=== PATIENT | male | born 1950 | race Two or more races ===

== ENCOUNTER 2024-04-06 17:54 | Inpatient (IN) | payer MEDICARE, MEDICAID, SELFPAY ==
[2024-04-06 18:11] VITALS: BP 97/60; PULSE 74; RESP 20; TEMP 36.7; O2SAT 95; BMI 30.6
--- NOTE | 2024-04-06 18:14 | XR_ITS ---
Examination: PA chest single view TECHNIQUE: Upright PA chest single view Standing time: April 06, 2024 1902 hours Comparison February 16, 2019 INDICATIONS: Chronic shortness of breath worsening today. FINDINGS: Mild enlargement cardiac contour Moderate vascular congestion Cardiac leads satisfactory position Bibasilar opacity consistent with pneumonia with blunting of the costophrenic angles The osseous structures are intact IMPRESSION: Mild heart failure Bibasilar pneumonia Bilateral [id number] pleural effusions
--- NOTE | 2024-04-06 18:16 | EDRME_ITS ---
Rapid Medical Screening Exam [facility] Arrival date/time: 04/06/24 17:54 74M with history of PA/CAD, CHF (w/ pacemaker), and DM presents to ED with 1 month of generalized swelling and some SOB. Patient hasn't wanted to go to PCP and convinced him to come today. Patient has been taking his normal meds. Chief Complaint: Ankle/Foot Injury Vital signs: Vital Signs Temperature 98.1 F 04/06/24 18:11 Pulse Rate 74 04/06/24 18:11 Respiratory Rate 20 04/06/24 18:11 Blood Pressure 97/60 04/06/24 18:11 Pulse Oximetry (%) 95 04/06/24 18:11 Oxygen Delivery Method Room Air 04/06/24 18:11
[2024-04-06 18:38] LABS: Basophils # (Auto) 0.1 Thou/mm3 (0.0-0.2); Basophils % (Auto) 1 % (0-2.5); Eosinophils # (Auto) 0.3 Thou/mm3 (0.0-0.5); Eosinophils % (Auto) 3 % (0-10); Hematocrit 40.5 % (41.0-53.0); Hemoglobin 13.3 g/dL (13.5-16.0); Immature Granulocytes % (Auto) 0 % (0-0); Immature Granulocytes Auto 0.02 Thou/mm3 (0.00-0.00); Lymphocytes # (Auto) 1.8 Thou/mm3 (1.0-4.8); Lymphocytes % (Auto) 20 % (10-50); Mean Corpuscular HGB Conc 32.8 g/dl (31.0-37.0); Mean Corpuscular Hemoglobin 29.3 pg (25.0-35.0); Mean Corpuscular Volume 89 fL (80-100); Monocytes # (Auto) 1.1 Thou/mm3 (0.0-0.8); Monocytes % (Auto) 12 % (0-12); Neutrophils # (Auto) 6.1 Thou/mm3 (1.8-7.7); Neutrophils % (Auto) 65 % (37-80); Nucleated Red Blood Cell % 0 /100 WBC (0); Platelet Count 286 Thou/mm3 (140-440); RDW Standard Deviation 51.1 fL (35.1-43.9); Red Blood Count 4.54 Miln/mm3 (4.50-5.90); White Blood Count 9.3 Thou/mm3 (3.8-10.6)
[2024-04-06 18:48] LABS: INR 1.1 (0.9-1.3); Prothrombin Time 11.5 Seconds (9.0-12.2)
[2024-04-06 19:07] LABS: Collection Type, Urine Clean Catch
[2024-04-06 19:08] LABS: Alanine Aminotransferase 48 U/L (10-49); Albumin, Serum 2.8 gm/dL (3.4-4.8); Albumin/Globulin Ratio 1.2 (1.2-2.2); Alkaline Phosphatase 75 U/L (46-116); Anion Gap 4 (7-16); Aspartate Amino Transferase 63 U/L (0-34); BUN/Creatinine Ratio 18 Ratio (12-20); Bilirubin,Total 0.5 mg/dL (0.3-1.2); Blood Urea Nitrogen 24 mg/dL (9-23); Calcium 8.1 mg/dL (8.3-10.6); Calcium (Corrected) 9.1 mg/dL (8.5-10.1); Carbon Dioxide 36.2 mMol/L (20.0-31.0); Chloride 97 mMol/L (98-107); Creatinine (Component) 1.3 mg/dL (0.6-1.3); Estimated Creatinine Clearance 49.7 mL/min (>60); Globulin 2.4 gm/dL (2.3-3.5); Glucose 138 mg/dL (74-106); Osmolality,Calculated 279 (275-295); Potassium 4.1 mMol/L (3.4-5.1); Sodium 137 mMol/L (136-145); Total Protein 5.2 gm/dL (5.7-8.2); eGFR 57 See Note
[2024-04-06 19:28] LABS: B-Type Natriuretic Peptide 1702 pg/mL (0-100)
[2024-04-06 19:29] LABS: Bacteria,Urine 4+; Bilirubin,Urine Negative (Negative); Blood,Urine Negative (Negative); Clarity,Urine Clear (Clear/Hazy); Color,Urine Lt-Yellow (Lt Yel-Yel); Glucose, Urine 4+ (Negative); Ketones,Urine Negative (Negative); Leukocyte Esterase,Urine Negative (Negative); Nitrite,Urine Negative (Negative); Protein,Urine Negative (Neg - Trace); RBC,Urine 5 /hpf (0-3); Specific Gravity,Urine 1.015 (1.001-1.035); Squamous Epithelial Cell,Urine < 1 /hpf (0-5); Urobilinogen,Urine Negative mg/dL (0.0-1.0); WBC,Urine 2 /hpf (0-5)
--- NOTE | 2024-04-06 21:01 | PD.EDEXREM ---
ED Extremity Problem RME/HPI General Chief complaint: Ankle/Foot Injury Stated complaint: FEET, STOMACH, HANDS SWOLLEN X 03/17/24 Source: patient and family Arrival date/time: 04/06/24 17:54 Mode of arrival: ambulatory Limitations: no limitations RME / HPI RME / HPI Narrative: 04/06/24 17:54 74M with history of OK/CAD, CHF (w/ pacemaker), and DM presents to ED with 1 month of generalized swelling and some SOB. Patient hasn't wanted to go to PCP and convinced him to come today. Patient has been taking his normal meds. Dr. Woodruff?s Main ED Evaluation: The patient is a 74-year-old male with a medical history significant for type 2 diabetes mellitus, hypertension, hyperlipidemia, severe left ventricular systolic dysfunction with an ejection fraction of 35%, acute non-ST segment elevation myocardial infarction (NSTEMI) in 2019, multivessel coronary artery disease (CAD) with diffuse stenosis, pacemaker. He is accompanied by his son and and presents to the emergency department due to concerns of edema to bilateral upper and lower extremities and abdomen, which has been ongoing since 03-17-24. Patient decided to come in today due to worsening shortness of breath. The patient reports that he has been taking Lasix (40 mg once daily) without noticeable improvement. He describes experiencing orthopnea, stating that he feels like he is drowning when lying flat. He also reports significant fatigue and exertional dyspnea, becoming short of breath during ambulation. Related Data Home Medications ?Medication ?Instructions ?Recorded ?Confirmed aspirin 81 mg tablet,delayed 81 mg PO QDAY 04/06/24 04/06/24 release atorvastatin 40 mg tablet 40 mg PO QDAY 04/06/24 04/06/24 carvedilol 3.125 mg tablet 3.125 mg PO BID 04/06/24 04/06/24 clopidogrel 75 mg tablet 75 mg PO QDAY 04/06/24 04/06/24 empagliflozin 10 mg tablet 10 mg PO QAM 04/06/24 04/06/24 (Jardiance) metformin 850 mg tablet 850 mg PO BIDWMEAL 04/06/24 04/06/24 spironolactone 25 mg tablet 25 mg PO QDAY 04/06/24 04/06/24 Previous Rx's ?Medication ?Instructions ?Recorded blood pressure monitor (Blood #1 ea 04/13/24 Pressure Kit) bumetanide 2 mg tablet 2 mg PO QDAY #30 tabs 04/13/24 ipratropium 0.5 mg-albuterol 3 mg 3 ml INH Q2HR PRN Shortness Of 04/13/24 (2.5 mg base)/3 mL nebulization Breath Or Wheeze #90 mL soln midodrine 10 mg tablet 10 mg PO BID 30 days #60 tabs 04/13/24 sacubitril 24 mg-valsartan 26 mg 1 tab PO BID 30 days #60 tabs 04/13/24 tablet (Entresto) Allergies Allergy/AdvReac Type Severity Reaction Status Date / Time No Known Allergies Allergy Verified 04/10/24 13:33 Review of Systems Review of Systems Systems Reviewed: All systems reviewed, normal except as documented Past Medical History Past Medical History NEUROLOGIC: Negative Neurological Disorders CARDIAC: Positive Hypercholesterolemia and Hypertension; Negative Cardiac Disorders or Congestive Heart Failure RESPIRATORY: Negative Chronic Obstructive Pulmonary Disease (COPD) GASTROINTESTINAL: Negative Gastrointestinal Disorders GENITOURINARY: Negative Genitourinary Disorders or Renal Disease ENT: Positive Cataracts ENDOCRINE: Positive Endocrine Disorders and Diabetes Mellitus Type 2; Negative Diabetes Mellitus Type 1 HEMATOLOGIC: Negative Blood Disorders Social History SMOKING STATUS: Never smoker SUBSTANCE USE: does not use ED Exam Narrative Physical exam: GENERAL APPEARANCE: alert and oriented x 4, well-developed, well-nourished, no acute distress, speaking in 3-4 word answers VITALS: All vitals were reviewed and the pulse ox is 95% on room air, which is normal according to my interpretation. HEENT: Normocephalic, atraumatic; pupils equal, round, reactive to light; EOMI; mucous membranes pink, moist; oropharynx clear NECK: Supple LUNGS: The patient is tachypneic, with a respiratory rate in the 30s. Rales and rhonchi are noted at the lung bases. HEART: Regular rate, regular rhythm; normal S1, S2; no murmurs ABDOMEN: non distended; normal BS; soft, no tenderness, no guarding, no rebound; no masses, no organomegaly, no hernia BACK: no CVA tenderness EXTREMITIES: Trace pitting edema extends to the abdomen. The patient has +1 pitting edema in both legs and +2 pitting edema in the bilateral lower extremities. NEUROLOGIC: awake; alert and oriented x4; cranial nerves II-XII grossly intact; no focal sensory or motor deficits PSYCHIATRIC: appropriate mood and affect SKIN: warm, dry, normal color; no rashes General Limitations: Present no limitations Course Course Course Narrative: CXR is ordered for determining etiology of shortness of breath Quality Measures none Orders Category Date Time Status Paint Prep Technician Q4H START 00 Care 04/06/24 20:58 Completed Continuous Pulse Oximetry NOW Care 04/06/24 20:58 Completed EKG (ED ONLY) *Do not use* NOW Care 04/06/24 20:58 Completed Insert IV NOW Care 04/06/24 20:58 Completed EKG (ED Only) Stat Exams 04/06/24 20:58 Ordered XR chest 1V portable Stat Exams 04/06/24 18:14 Completed B-Type Natriuretic Peptide Stat Lab 04/06/24 18:27 Completed CBC Stat Lab 04/06/24 18:27 Completed Comprehensive Metabolic Panel Stat Lab 04/06/24 18:27 Completed INR [Prothrombin Time with INR] Stat Lab 04/06/24 18:27 Completed Magnesium Stat Lab 04/06/24 18:27 Completed PTT [Partial Thromboplastin Time] Stat Lab 04/06/24 18:27 Completed Troponin I Stat Lab 04/06/24 18:27 Completed Urinalysis Stat Lab 04/06/24 19:02 Completed Furosemide Inj [Lasix Inj] Med 04/06/24 21:00 Discontinued 80 mg IVP X1 ONE Vital Signs Vital signs: Vital Signs Temperature 98.1 F 04/06/24 18:11 Pulse Rate 74 04/06/24 18:11 Respiratory Rate 20 04/06/24 18:11 Blood Pressure 97/60 04/06/24 18:11 Pulse Oximetry (%) 95 04/06/24 18:11 Oxygen Delivery Method Room Air 04/06/24 18:11 Procedures -ED Procedure Comment The EKG at 2140 demonstrates a demand dual-chamber pacemaker with good sensing and capture. Findings include left axis deviation, Q waves in the inferior leads, a QRS duration of 134 ms, and a QTc of 176 ms. No evidence of STEMI is noted. Extremity Problem MDM Narrative MDM Narrative:: Scribe Attestation: Malissa Davey am scribing for and in the presence of Dr. Woodruff. Provider Notation: Although this document has been carefully reviewed, there may still be some phonetic and other typographical errors. These errors are purely grammatical due to imperfections in the software program and should not be construed in any way to compromise the substance of the patient's medical care during this visit. Patient data External records reviewed:: [facility] previous records Clinical information provided by:: patient Social determinants that could affect healthcare access:: none Patient has the following chronic illnesses:: See PMH How is presenting disease/condition affected by chronic disease/condition?: exacerbated by Evaluation data The following diagnostics were reviewed and interpreted by me:: lab results, radiology exam(s) and EKG tracing(s) Lab and/or radiology exams considered but not ordered:: None Interpretation Summary: I personally reviewed the radiology data and agree with the radiologist's interpretation. Examination: PA chest single view TECHNIQUE: Upright PA chest single view Standing time: April 06, 2024 1902 hours Comparison February 16, 2019 INDICATIONS: Chronic shortness of breath worsening today. FINDINGS: Mild enlargement cardiac contour Moderate vascular congestion Cardiac leads satisfactory position Bibasilar opacity consistent with pneumonia with blunting of the costophrenic angles The osseous structures are intact IMPRESSION: Mild heart failure Bibasilar pneumonia Bilateral [id number] pleural effusions Dictated By: John Barlow MD Medications / Prescriptions Medications or Prescriptions considered but not ordered:: None Medication administrations:: Medication Administration History Discontinued Medications Acetaminophen (Acetaminophen 325 Mg Tablet) 650 mg PO Q6H PRN PRN Reason: Fever >100.3 or pain Stop: 05/06/24 23:08 Acetaminophen (Acetaminophen 325 Mg Tablet) 650 mg PO Q6H PRN PRN Reason: Fever >100.3 or pain 1-3 Stop: 05/06/24 23:08 Hydrocodone Bitart/Acetaminophen (Hydrocodone/Apap 5/325 Tablet) 1 tab PO Q4HR PRN PRN Reason: PAIN SCALE 4-10(Mod-Sev Stop: 04/11/24 23:08 Albuterol/Ipratropium (Albuterol/Ipratropium (Duoneb) Rt Margaret 3 Ml Nebu) 3 ml INH Q2HR PRN PRN Reason: SHORTNESS OF BREATH OR WHEEZE Stop: 05/06/24 23:08 Last Admin: 04/13/24 03:19 Dose: 3 ml Documented By: Admin: 04/09/24 00:06 Dose: 3 ml Documented By: Admin: 04/08/24 06:45 Dose: 3 ml Documented By: Admin: 04/07/24 21:14 Dose: 3 ml Documented By: SAMSON Aspirin (Aspirin Ec 81 Mg Tabec) 81 mg PO QDAY [facility] Stop: 05/07/24 08:59 Last Admin: 04/13/24 08:01 Dose: 81 mg Documented By: Admin: 04/12/24 10:15 Dose: 81 mg Documented By: Admin: 04/11/24 08:06 Dose: 81 mg Documented By: Admin: 04/10/24 08:47 Dose: 81 mg Documented By: Admin: 04/09/24 08:02 Dose: 81 mg Documented By: Admin: 04/08/24 08:06 Dose: 81 mg Documented By: Admin: 04/07/24 08:40 Dose: 81 mg Documented By: LEON Atorvastatin Calcium (Atorvastatin Calcium 20 Mg Tablet) 40 mg PO HS [facility] Stop: 05/07/24 20:59 Last Admin: 04/12/24 21:29 Dose: 40 mg Documented By: Admin: 04/11/24 21:28 Dose: 40 mg Documented By: Admin: 04/10/24 21:42 Dose: 40 mg Documented By: Admin: 04/09/24 23:17 Dose: 40 mg Documented By: Admin: 04/08/24 21:01 Dose: 40 mg Documented By: Admin: 04/07/24 20:48 Dose: 40 mg Documented By: Atropine Sulfate (Atropine Sulf Inj 1 Mg/Ml Vial) Confirm Administered Dose 1 mg .ROUTE .STK-MED ONE Stop: 04/10/24 11:01 Last Admin: 04/10/24 11:14 Dose: Not Given Documented By: CU Non-Admin Reason: Override Medication Carvedilol (Carvedilol 3.125 Mg Tablet) 3.125 mg PO BIDWM [facility] Stop: 05/09/24 08:24 Last Admin: 04/13/24 17:47 Dose: 3.125 mg Documented By: Admin: 04/13/24 08:06 Dose: 3.125 mg Documented By: Admin: 04/12/24 17:00 Dose: Not Given Documented By: JANNETH Non-Admin Reason: Vital Signs Admin: 04/12/24 10:16 Dose: 3.125 mg Documented By: JANNETH Comments: Given after MD instruction given on which meds to give/hold Admin: 04/10/24 18:09 Dose: Not Given Documented By: CHRIS Non-Admin Reason: NPO Comments: failed bedside swallow screen. MD aware Admin: 04/10/24 08:46 Dose: 3.125 mg Documented By: Admin: 04/09/24 17:38 Dose: 3.125 mg Documented By: Admin: 04/09/24 09:08 Dose: 3.125 mg Documented By: CHRIS Clopidogrel Bisulfate (Clopidogrel Bisulfate 75 Mg Tablet) 75 mg PO QDAY MASSIEL Stop: 05/07/24 08:59 Last Admin: 04/13/24 08:01 Dose: 75 mg Documented By: Admin: 04/12/24 10:15 Dose: 75 mg Documented By: Admin: 04/11/24 08:06 Dose: 75 mg Documented By: Admin: 04/10/24 08:46 Dose: 75 mg Documented By: Admin: 04/09/24 08:02 Dose: 75 mg Documented By: Admin: 04/08/24 08:06 Dose: 75 mg Documented By: Admin: 04/07/24 08:40 Dose: 75 mg Documented By: LEON Dextrose (Dextrose 50%-Water Inj 50 Ml Syringe) 50 ml IV Q15MIN PRN PRN Reason: BG <50 OR BG <70 & pt unresponsive Stop: 05/06/24 23:18 Diphenhydramine HCl (Diphenhydramine Inj 50 Mg/Ml Vial) 50 mg IVP X1 ONE Stop: 04/09/24 13:38 Last Admin: 04/11/24 05:56 Dose: Not Given Documented By: AC Non-Admin Reason: Discontinued Epinephrine HCl (Epinephrine Inj 0.1 Mg/Ml Syringe 10ml) Confirm Administered Dose 1 mg .ROUTE .STK-MED ONE Stop: 04/10/24 11:02 Last Admin: 04/10/24 11:14 Dose: Not Given Documented By: CU Non-Admin Reason: Override Medication Famotidine (Famotidine Inj 10 Mg/Ml Vial 2 Ml) 20 mg IVP X1 ONE Stop: 04/09/24 13:38 Last Admin: 04/11/24 05:57 Dose: Not Given Documented By: AC Non-Admin Reason: Discontinued Fentanyl Citrate (Fentanyl Cit Inj 50 Mcg/Ml Amp 2ml) Confirm Administered Dose 100 mcg .ROUTE .STK-MED ONE Stop: 04/10/24 11:01 Last Admin: 04/10/24 11:14 Dose: Not Given Documented By: CU Non-Admin Reason: Override Medication Flumazenil (Flumazenil Inj 0.1 Mg/Ml Vial 10 Ml) Confirm Administered Dose 1 mg .ROUTE .STK-MED ONE Stop: 04/10/24 11:02 Last Admin: 04/10/24 11:14 Dose: Not Given Documented By: CU Non-Admin Reason: Override Medication Furosemide (Furosemide Inj 10 Mg/Ml 4ml Vial) 80 mg IVP X1 ONE Stop: 04/06/24 21:01 Last Admin: 04/06/24 21:51 Dose: 80 mg Documented By: KG Furosemide (Furosemide Inj 10 Mg/Ml 4ml Vial) 40 mg IVP BIDD [facility] Stop: 05/07/24 05:59 Last Admin: 04/10/24 06:42 Dose: 40 mg Documented By: Admin: 04/09/24 17:36 Dose: 40 mg Documented By: Admin: 04/09/24 05:27 Dose: 40 mg Documented By: Admin: 04/08/24 17:48 Dose: 40 mg Documented By: Admin: 04/08/24 05:12 Dose: 40 mg Documented By: Admin: 04/07/24 17:53 Dose: 40 mg Documented By: Admin: 04/07/24 05:41 Dose: 40 mg Documented By: NL Furosemide (Furosemide Inj 10 Mg/Ml 4ml Vial) Confirm Administered Dose 40 mg .ROUTE .STK-MED ONE Stop: 04/10/24 12:15 Last Admin: 04/10/24 16:23 Dose: Not Given Documented By: CU Non-Admin Reason: Override Medication Furosemide (Furosemide Inj 10 Mg/Ml 4ml Vial) 40 mg IVP QDAY [facility] Stop: 05/11/24 08:59 Last Admin: 04/13/24 08:08 Dose: 40 mg Documented By: Admin: 04/12/24 10:14 Dose: 40 mg Documented By: JT Comments: Given after MD instruction on which meds to give/hold Glucagon (Glucagon Inj 1 Mg Vial) 1 mg IM Q15MIN PRN PRN Reason: BG <70, and no IV access Glucagon (Glucagon Inj 1 Mg Vial) 1 mg IM Q15MIN PRN PRN Reason: BG <70, and no IV access Heparin Sodium (Porcine) (Heparin Sod Inj 5000 Unit/Ml Vial) 5,000 unit SC BID [facility] Stop: 04/21/24 08:59 Last Admin: 04/07/24 08:51 Dose: 5,000 unit Documented By: LEON Co-signed By: JO ANN Heparin Sodium (Porcine) (Heparin Sod Inj 5000 Unit/Ml Vial) 5,000 unit SC BID [facility] Stop: 04/21/24 08:59 Last Admin: 04/09/24 08:01 Dose: 5,000 unit Documented By: CHRIS Co-signed By: LESTER Admin: 04/08/24 21:02 Dose: 5,000 unit Documented By: GONZALEZ Co-signed By: DEENA Admin: 04/08/24 08:06 Dose: 5,000 unit Documented By: PP Co-signed By: CHRIS Admin: 04/07/24 20:48 Dose: 5,000 unit Documented By: Co-signed By: GONZALEZ Heparin Sodium (Porcine) (Heparin Sod Inj 1000 Unit/Ml Vial 10 Ml) Confirm Administered Dose 20,000 unit .ROUTE .STK-MED ONE Stop: 04/10/24 11:02 Last Admin: 04/10/24 11:15 Dose: Not Given Documented By: CU Non-Admin Reason: Override Medication Hydrocortisone Sodium Succinate (Hydrocortisone Sod Succ Inj 100 Mg Vial) 100 mg IV X1 ONE Stop: 04/09/24 13:38 Last Admin: 04/11/24 05:57 Dose: Not Given Documented By: AC Non-Admin Reason: Discontinued Magnesium Sulfate (Magnesium Sulfate Ivpb) 4 gm in 50 mls @ 12.5 mls/hr IV X1 ONE Stop: 04/07/24 03:40 Last Admin: 04/07/24 02:02 Dose: 12.5 mls/hr Documented By: KG Nitroglycerin/Dextrose (Nitroglycerin In D5w Ivpb) Confirm Administered Dose 50 mg in 250 mls @ ud IV .STK-MED ONE Stop: 04/10/24 11:02 Last Admin: 04/10/24 11:15 Dose: Not Given Documented By: CU Non-Admin Reason: Override Medication Sodium Chloride (Ns) 250 mls @ 999 mls/hr IV .Q16M ONE Stop: 04/11/24 04:32 Last Admin: 04/11/24 04:19 Dose: 999 mls/hr Documented By: CTF Albumin Human (Albuminar-25 Ivpb) 25 gm in 100 mls @ 100 mls/hr IV QDAY [facility]SI[facility] Stop: 04/14/24 04:17 Last Admin: 04/11/24 08:08 Dose: 100 mls/hr Documented By: Infusion: 04/11/24 05:19 Dose: Infused Documented By: Admin: 04/11/24 04:19 Dose: 100 mls/hr Documented By: CTF Albumin Human (Albuminar-25 Ivpb) Confirm Administered Dose 25 gm in 100 mls @ ud IV .STK-MED ONE Stop: 04/11/24 04:13 Last Admin: 04/11/24 04:37 Dose: Not Given Documented By: CTF Non-Admin Reason: Duplicate Medication on eMAR Sodium Chloride (Ns) 250 mls @ 999 mls/hr IV .Q16M ONE Stop: 04/11/24 04:52 Last Admin: 04/11/24 04:35 Dose: 999 mls/hr Documented By: DICKSON Insulin Human Lispro (Insulin Lispro (Admelog) 1 Unit/0.01 Ml Unit) 0 unit SC AC MASSIEL; Protocol Stop: 05/07/24 07:29 Last Admin: 04/07/24 11:55 Dose: Not Given Documented By: AVM Non-Admin Reason: Per Protocol Admin: 04/07/24 08:08 Dose: Not Given Documented By: AVM Non-Admin Reason: Per Protocol Insulin Human Lispro (Insulin Lispro (Admelog) 1 Unit/0.01 Ml Unit) 0 unit SC AC MASSIEL; Protocol Stop: 05/07/24 07:29 Last Admin: 04/13/24 17:49 Dose: 2 unit Documented By: JOSE Co-signed By: ARMANDO Admin: 04/13/24 12:23 Dose: 3 unit Documented By: JOSE Co-signed By: BIJU Admin: 04/13/24 08:06 Dose: 2 unit Documented By: JOSE Co-signed By: DEJAH Admin: 04/12/24 17:15 Dose: 2 unit Documented By: COLLIN Co-signed By: ARMANDO Admin: 04/12/24 12:06 Dose: 3 unit Documented By: JANNETH Co-signed By: ARMANDO Admin: 04/12/24 07:48 Dose: 2 unit Documented By: JANNETH Co-signed By: ARMANDO Admin: 04/11/24 16:52 Dose: 2 unit Documented By: KF Co-signed By: TM Admin: 04/11/24 11:11 Dose: 1 unit Documented By: KF Co-signed By: TM Admin: 04/11/24 07:32 Dose: 1 unit Documented By: KF Co-signed By: TM Admin: 04/10/24 18:09 Dose: Not Given Documented By: VZ Non-Admin Reason: NPO Admin: 04/10/24 16:40 Dose: Not Given Documented By: CS Non-Admin Reason: pt in cath Admin: 04/10/24 08:45 Dose: 1 unit Documented By: VZ Co-signed By: CS Admin: 04/09/24 17:37 Dose: 1 unit Documented By: VZ Co-signed By: CS Admin: 04/09/24 11:47 Dose: 1 unit Documented By: VZ Co-signed By: CS Admin: 04/09/24 08:00 Dose: 1 unit Documented By: VZ Co-signed By: CS Admin: 04/08/24 17:49 Dose: 1 unit Documented By: VZ Co-signed By: PP Admin: 04/08/24 12:06 Dose: 1 unit Documented By: PP Co-signed By: VZ Admin: 04/08/24 07:59 Dose: Not Given Documented By: PP Non-Admin Reason: Per Protocol Comments: bg 148 Admin: 04/07/24 17:55 Dose: 1 unit Documented By: AVM Co-signed By: AL Lidocaine HCl (Lidocaine Inj Pf 1% 30 Ml Vial) Confirm Administered Dose 30 ml .ROUTE .STK-MED ONE Stop: 04/10/24 11:02 Last Admin: 04/10/24 11:15 Dose: Not Given Documented By: CU Non-Admin Reason: Override Medication Midazolam HCl (Midazolam Inj 1 Mg/Ml Vial 2 Ml) Confirm Administered Dose 2 mg .ROUTE .STK-MED ONE Stop: 04/10/24 11:01 Last Admin: 04/10/24 11:14 Dose: Not Given Documented By: CU Non-Admin Reason: Override Medication Midodrine (Midodrine 5 Mg Tablet) 5 mg PO BID MASSIEL Stop: 05/11/24 20:59 Last Admin: 04/11/24 21:28 Dose: 5 mg Documented By: SHAN Midodrine (Midodrine 5 Mg Tablet) 10 mg PO BID [facility] Stop: 05/12/24 20:59 Last Admin: 04/13/24 08:06 Dose: 10 mg Documented By: Admin: 04/12/24 19:43 Dose: 10 mg Documented By: Midodrine (Midodrine 5 Mg Tablet) 10 mg PO X1 [facility] Stop: 04/12/24 10:16 Last Admin: 04/12/24 10:16 Dose: 10 mg Documented By: JANNETH Naloxone HCl (Naloxone Inj 0.4 Mg/Ml Vial) Confirm Administered Dose 0.4 mg .ROUTE .[employer]-MED ONE Stop: 04/10/24 11:01 Last Admin: 04/10/24 11:14 Dose: Not Given Documented By: CU Non-Admin Reason: Override Medication Ondansetron HCl (Ondansetron Inj 2 Mg/Ml Inj 2 Ml) 4 mg IV Q6H PRN; Protocol PRN Reason: NAUSEA OR VOMITING Stop: 05/06/24 23:08 Pantoprazole Sodium (Pantoprazole 40 Mg Tablet) 40 mg PO QDAY [facility] Stop: 05/07/24 08:59 Last Admin: 04/13/24 08:02 Dose: 40 mg Documented By: Admin: 04/12/24 10:15 Dose: 40 mg Documented By: Admin: 04/11/24 08:06 Dose: 40 mg Documented By: Admin: 04/10/24 08:46 Dose: 40 mg Documented By: Admin: 04/09/24 08:02 Dose: 40 mg Documented By: Admin: 04/08/24 08:05 Dose: 40 mg Documented By: Admin: 04/07/24 08:41 Dose: 40 mg Documented By: LEON Phenylephrine HCl (Phenylephrine Inj In Ns 100 Mcg/Ml 10 Ml Syringe) Confirm Administered Dose 1,000 mcg .ROUTE .[employer]-MED ONE Stop: 04/10/24 11:02 Last Admin: 04/10/24 11:15 Dose: Not Given Documented By: CU Non-Admin Reason: Override Medication Potassium Chloride (Potassium Chloride 20 Meq Tabcr) 40 meq PO X1 ONE Stop: 04/07/24 07:53 Last Admin: 04/07/24 08:40 Dose: 40 meq Documented By: LEON Sacubitril/Valsartan (Sacubitril 24 Mg/Valsartan 26 Mg Tablet) 1 tab PO BID [facility] Stop: 05/10/24 20:59 Last Admin: 04/12/24 10:17 Dose: Not Given Documented By: JANNETH Non-Admin Reason: Held per Dr. Cancino Admin: 04/10/24 21:41 Dose: 1 tab Documented By: DICKSON Sennosides (Senna Tablet) 1 tab PO QDAY [facility]SIEL; Protocol Stop: 05/07/24 08:59 Last Admin: 04/13/24 08:02 Dose: 1 tab Documented By: Admin: 04/12/24 10:15 Dose: 1 tab Documented By: Admin: 04/11/24 08:06 Dose: 1 tab Documented By: Admin: 04/10/24 08:46 Dose: 1 tab Documented By: Admin: 04/09/24 08:02 Dose: 1 tab Documented By: Admin: 04/08/24 08:05 Dose: 1 tab Documented By: Admin: 04/07/24 08:41 Dose: 1 tab Documented By: LEON Spironolactone (Spironolactone 25 Mg Tablet) 25 mg PO BID [facility] Stop: 05/10/24 20:59 Last Admin: 04/12/24 10:16 Dose: 25 mg Documented By: Admin: 04/11/24 07:53 Dose: Not Given Documented By: MICHELLE Non-Admin Reason: Do not give per Dr. Cancino Admin: 04/10/24 21:42 Dose: 25 mg Documented By: DICKSON Spironolactone (Spironolactone 25 Mg Tablet) 25 mg PO QDAY [facility] Stop: 05/13/24 08:59 Last Admin: 04/13/24 08:02 Dose: 25 mg Documented By: JOSE Verapamil HCl (Verapamil Inj 2.5 Mg/Ml Vial 2 Ml) Confirm Administered Dose 5 mg .ROUTE .STK-MED ONE Stop: 04/10/24 11:01 Last Admin: 04/10/24 11:14 Dose: Not Given Documented By: CU Non-Admin Reason: Override Medication As above, if any Consultations Consultation(s) initiated? (list below): Yes Consultation #1 (Physician, Specialty, Details): Hospitalist made aware of the patient?s HPI, PMHx, lab and/or radiology results. Treatment plan was discussed. Accepts patient for admission. Time: 22:07 Diagnosis Extremity Problem Differential Diagnosis: other (CHF vs mixed edema vs renal failure) Most likely diagnosis given after review of the tests above:: See clinical impression below Admission Indicated Admission indicated?: indicated Admission Request Was there a request for admission?: Yes Admission Attestation Admission request attestation: Discussed case with [] from Hospitalist service regarding admission. Discussed patients ED course, exam findings, labs, and radiology results. The Hospitalist [agrees,declines] to accept the patient for admission. Disposition Plan Disposition Plan: Admit Critical Care Time Critical Care Time Critical Care Time: Yes Total Critical Care Time (min.): 35 Attestation: The high probability of sudden, clinically significant deterioration in the patient?s condition required the highest level of my preparedness to intervene urgently. ? The services I provided to this patient were to treat and/or prevent clinically significant deterioration. Services included the following: chart data review, reviewing nursing notes and/or old charts, documentation time, guidance consultant collaboration regarding findings and treatment options, medication orders and management, direct patient care, vital sign assessments and ordering, interpreting and reviewing diagnostic studies and lab tests. ? Aggregate critical care time includes only time during which I was engaged in work directly related to the patient?s care, as described above, whether at bedside or elsewhere in the Emergency Department. It did not include time spent performing other reported procedures or the services of residents, students, nurses or physician assistants. Discharge Plan Plan Patient Disposition: Admit Acute Care w/in Hospital Problem List Clinical Impression: Pleural effusion, Pedal edema, Adult myxedema Patient/Caregiver Discharge Instructions Other Activity Instructions:: Please follow-up with primary care physician in 1 week after discharge Please follow-up with cargo checker Dr. Gar in 1 to 2 weeks after discharge You have been started on Bumex 2 mg daily You have been started on midodrine 10 mg twice daily You have been started on spironolactone 25-minute 25 mg tablet daily You have been continued on ipratropium albuterol 0.5 mg every 2 hours as needed for shortness of breath or wheezing. You have been started on Entresto 24/26 mg tablet twice daily We have stopped your Lasix 40 mg daily and your losartan 25 mg tablet daily. Please continue all other medications as prescribed you have been started on carvedilol 3.125 mg tablet twice daily Limit your fluid intake to 2 L daily this includes water, coffee, juices, or any other form of liquid. Please weigh self daily and if you see any increased weight of 2+ pounds from 1 day to another call your cargo checker. Please come back to the ER if symptoms persist or worsen Realice un seguimiento con lozada m?dico de atenci?n primaria 1 semana despu?s del radha. Realice un seguimiento con el cardi?logo Dr. Gar , entre 1 y 2 semanas despu?s del radha. Sosa comenzado a martha Bumex 2 mg al d?a. Sosa comenzado a martha midodrina 10 mg dos veces al d?a. Sosa comenzado a martha espironolactona en comprimidos de 25 mg al d?a. Se le sosa continuado tomando ipratropio albuterol 0,5 mg cada 2 horas seg?n sea necesario para la dificultad para respirar o las sibilancias. Sosa comenzado a martha Entresto 24/26 mg comprimido dos veces al d?a. Hemos suspendido lozada Lasix 40 mg al d?a y lozada tableta de losart?n 25 mg al d?a. Contin?e con todos los dem?s medicamentos seg?n lo prescrito. Sosa comenzado a martha carvedilol en comprimidos de 3,125 mg dos veces al d?a. Limite lozada ingesta de l?quidos a 2 litros diarios, esto incluye agua, caf?, jugos o cualquier otra forma de l?quido. P?sese diariamente y si nota un aumento de peso de m?s de 2 libras de un d?a a otro, llame a lozada cardi?logo. Vuelva a la [place] de emergencias si los s?ntomas persisten o empeoran.
[2024-04-06 21:37] LABS: Magnesium 1.4 mg/dL (1.6-2.6)
[2024-04-06 21:38] LABS: Troponin I 0.056 ng/mL (0.0-0.045)
[2024-04-06 21:51] VITALS: BP 102/63; PULSE 80
[2024-04-06] MEDS: FUROSEMIDE INJ 10 MG/ML 4ML VIAL 80 MG IVP (21:51)
[2024-04-06 22:00] VITALS: BP 111/68; PULSE 56; PULSE 74; RESP 28; O2SAT 93
[2024-04-06 22:28] VITALS: BP 104/59; PULSE 67; RESP 28; O2SAT 94
--- NOTE | 2024-04-06 23:09 | ESHP_ITS ---
<Statement entered by Santana Payne MD - 04/07/24 14:04> I have discussed and was present for the essential components of the history, physical examination, diagnosis, and treatment plan with the resident. I agree with the patient's care as documented by the resident and amended herein by me. Santana Payne MD FACP. Documentation for date of: 04/06/24 HPI History of Present Illness Chief complaint: Generalized Swelling, SOB History of present illness: HPI: Patient is Mongolian-speaking and accompanied by his at bedside. Interview facilitated by registered healthcare motion picture narrator. Patient is a 74-year-old male with past medical history significant for essential hypertension, izd-wjgljwn-klaawaccf diabetes mellitus type 2, chronic systolic congestive heart failure [40%], NSTEMI [2019], coronary artery disease presented with a chief complaint of lower and upper extremity swelling since 03/17/2024. Patient stated that his edema for started with his lower extremities on 03/17/2024 and progressively worsened reaching up to his sacrum and even upper extremities. He reports compliance with his medication but says he has been eating a lot of salty foods recently. He also has associated shortness of breath, initially on minimal exertion now at rest and PND as well as a 3 pillow orthopnea. Patient says he feels like he is drowning if he lies flat. Denies any chest pain/pressure, palpitations, leg cramps, headaches, dizziness, syncope, sick contacts and recent travel. Patient says that his registered dental assistant rda is Dr. Gar but admitted to not having an appointment in a long time. ED course: BP 104/59, pulse 67, RR 28, temp 98.1 F, SpO2 94% on room air. Labs significant for Hb 13.3, HCT 40.5, BUN 24, CR 1.3, Mg 1.4, Trop I 0.056, BNP 1702. Urinalysis significant for 4+ glucose. Chest x-ray significant for bibasilar consolidation and bilateral pleural effusions. In the ED patient received Lasix 80 Mg IV x 1. Patient will be admitted for treatment and management of acute decompensated chronic systolic congestive heart failure exacerbation. Review of Systems Review of Systems Narrative Review of Systems: GENERAL: Denies fever/chills or diaphoresis. HEENT: Denies headaches or visual changes. Denies discharge. Neuro: Denies unusual weakness or difficulty speaking. CARDIO: As above PULM: As above GI: Denies abdominal pain, N/V/C/D. Reports having BMs. URO: Denies burning/itching/pain/urinary changes. MSK/EXT/SKIN: Denies joint/skeletal/muscle pain, issues/changes in upper or lower extremities, itchiness, or superficial pain. PSYCH: Cooperative, pleasant mood & affect. The rest of the review of systems is otherwise negative. Past Medical History Past Medical History Comments PMH COMMENT: Past medical history: ? Essential hypertension ? Knf-puibcyl-qlhgmtukk diabetes mellitus type 2 ? Chronic systolic congestive heart failure [40%] ? NSTEMI [2019] ? CAD Medication list: ? Aspirin 81 Mg p.o. daily ? Atorvastatin 40 Mg p.o. daily ? Coreg 3.125 p.o. twice daily ? Clopidogrel 75 Mg p.o. daily ? Empagliflozin 10 Mg p.o. every morning ? Lasix 40 Mg p.o. daily ? Losartan 25 Mg p.o. daily ? Metformin 850 Mg p.o. twice daily ? Spironolactone 25 Mg p.o. daily Past surgical history: ? CABG 2019 ? 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 7 kids Tobacco use: Denies ETHO use: Denies Illicit drug use: Denies Social History Note: lives with Family History: DM and HTN Exam Vital Signs Temp Pulse Resp BP Pulse Ox O2 Del Method 98.1 F 67 28 H 104/59 L 94 L Room Air 04/06/24 18:11 04/06/24 22:28 04/06/24 22:28 04/06/24 22:28 04/06/24 22:28 04/06/24 22:28 Narrative Exam Constitutional Alert, oriented x 3 and comfortable. Elderly, obese male HEENT Vision grossly intact. Patent nares. Trachea midline Respiratory Pacemaker noted left chest wall, no inspiratory effort, reduced air entry bilaterally, scattered crackles at bases Cardiovascular S1 and S2 audible, RRR. No murmurs carotid bruit. No gross JVD. Abdominal Soft, obese and non tender to palpation in all quadrants. BS + Genitourinary No bladder tenderness, no flank pain. Normal to palpation. Scrotal edema Musculoskeletal Extremities tone within normal limits. 4+ pitting edema of lower extremities up to hips bilaterally including the sacrum Neurological CN II - XII grossly intact. Extremity motor and sensation grossly intact. Skin Warm, dry and intact. No apparent lesions. Psychiatric Patient has good affect, is cooperative Results: Labs 04/06/24 18:27 04/06/24 18:27 Labs: Short CBC 04/06/24 Range/Units 18:27 WBC 9.3 (3.8-10.6) Thou/mm3 Hgb 13.3 L (13.5-16.0) g/dL Hct 40.5 L (41.0-53.0) % Plt Count 286 (140-440) Thou/mm3 BMP 04/06/24 18:27 Sodium 137 Potassium 4.1 Chloride 97 L Carbon Dioxide 36.2 H BUN 24 H Creatinine 1.3 Glucose 138 H Calcium 8.1 L Cardiac Enzymes 04/06/24 Range/Units 18:27 Troponin I 0.056 H* (0.0-0.045) ng/mL Liver Function 04/06/24 Range/Units 18:27 Total Bilirubin 0.5 (0.3-1.2) mg/dL AST 63 H (0-34) U/L ALT 48 (10-49) U/L Alkaline Phosphatase 75 (46-116) U/L Albumin 2.8 L (3.4-4.8) gm/dL Urine 04/06/24 Range/Units 19:02 Urine Color Lt-Yellow (Lt Yel-Yel) Urine Clarity Clear (Clear/Hazy) Urine pH 7.0 (5.0-7.0) Ur Specific [place] 1.015 (1.001-1.035) Urine Protein Negative (Neg - Trace) Urine Glucose (UA) 4+ A (Negative) Quality Measures Quality Measures none Advance care planning discussed with:: patient Medications Home Medications and Allergies Home Medications ?Medication ?Instructions ?Recorded ?Confirmed ?Type metformin 1,000 mg tablet 1,000 mg PO BID 02/07/19 History aspirin 81 mg tablet,delayed 81 mg PO QDAY 04/06/24 History release atorvastatin 40 mg tablet 40 mg PO QDAY 04/06/2404/06 History carvedilol 3.125 mg tablet 3.125 mg PO BID 04/06/24 History clopidogrel 75 mg tablet 75 mg PO QDAY 04/06/2404/06 History empagliflozin 10 mg tablet 10 mg PO QAM 04/06/2404/06 History (Jardiance) furosemide 40 mg tablet 40 mg PO QDAY 04/06/2404/06 History losartan 25 mg tablet 25 mg PO QDAY 04/06/2404/06 History metformin 850 mg tablet 850 mg PO BIDWMEAL 04/06/24 04/06/24 History spironolactone 25 mg tablet 25 mg PO QDAY 04/06/24 History Allergies Allergy/AdvReac Type Severity Reaction Status Date / Time No Known Allergies Allergy Verified 04/06/24 17:56 Visit Medications Discontinued Medications Furosemide (Furosemide Inj 10 Mg/Ml 4ml Vial) 80 mg IVP X1 ONE Stop: 04/06/24 21:01 Last Admin: 04/06/24 21:51 Dose: 80 mg Assessment & Plan Plan Patient is a 74-year-old male with past medical history significant for essential hypertension, lci-atoxokn-zjyijdnvv diabetes mellitus type 2, chronic systolic congestive heart failure [40%], NSTEMI [2019], coronary artery disease presented with a chief complaint of lower and upper extremity swelling since 03/17/2024. Patient will be admitted for treatment and management of acute decompensated chronic systolic congestive heart failure exacerbation. 1. Acute decompensated chronic systolic congestive heart failure exacerbation [40%] 2. History of NSTEMI s/p CABG 2018 3. Coronary artery disease 4. Hyperlipidemia Patient presented with a 3-week history of progressively worsening lower and upper extremity edema and shortness of breath On exam patient appears tachypneic and 4+ pitting edema up to hips bilaterally including the sacral. On auscultation bibasilar crackles Chest x-ray significant for bibasilar consolidation and bilateral pleural effusions. EKG significant for dual-chamber pacemaker, left axis deviation, Q waves in inferior leads. No evidence of ST changes. NYHA class D stage IV BNP 1702 Home diuretic Lasix 40 Mg p.o. daily Plan: ? 2G sodium restricted diet ? Strict input output ? Diaz catheter ? Daily weights ? 1500 cc/day fluid restriction - Transthoracic echocardiogram ordered to assess for wall motion abnormalities, valvular defects and ejection fraction. ? Lipid panel, HbA1c and TSH ordered ? Lasix 40 Mg IV twice daily ? Avoid beta-blockers at this time in the setting of acute CHF exacerbation ? Holding ARB and SGLT2 at this time to give blood pressure room for extra diuresis if necessary. ? Maintain K >4 and Mg >2 at all times to prevent any arrhythmias 5. NSTEMI type I versus type II Patient denies any ACS symptoms including chest pain/pressure or palpitations. Troponin mildly elevated at 0.056. Etiology most likely in the setting of CHF exacerbation and CKD Plan: ? Repeat troponin in the a.m. 6. CKD stage III A On admission CR 1.3. This appears to be his baseline Plan: ? Renally dose medication ? Avoid nephrotoxic agents 7. Essential hypertension On admission BP 104/59 Plan: ? Patient currently on IV diuresis with Lasix 40 Mg IV twice daily 8. Wkm-dcgkkvv-hrrvmwufq diabetes mellitus type 2 Home medication metformin 850 Mg p.o. twice daily No recent A1c on file Plan: ? Low consistent carb diet ? HbA1c ordered ? SSI to cover for any blood glucose spikes Health maintenance: Disposition: IV diuresis. Diet: Low consistent carb and cardiac Lines: pIVs GI Prophylaxis: Pantoprazole Thrombo Prophylaxis: Heparin 5000 U SC twice daily Code status: FULL CODE Plan of care discussed with Attending Dr. Elmer eHrnadez MD PGY 1
--- NOTE | 2024-04-06 23:24 | ECHO_ITS ---
Transthoracic Echo Report Ht (in): 66 Wt (lb): 189 Exam Location: Echo Lab Status: Inpatient Carpet Sewing Machine Operator: Jackeline Crocker Indications: Procedure Performed: BP: 173 / 91 HR: 75 Technical Quality: Very technically difficult study MEASUREMENTS (Male / Female) Normal Values 2D ECHO LV Diastolic Diameter PLAX 5.5 cm 4.2 - 5.9 / 3.9 - 5.3 cm LV Systolic Diameter PLAX 4.7 cm IVS Diastolic Thickness 1.0 cm 0.6 - 1.0 / 0.6 - 0.9 cm LVPW Diastolic Thickness 0.8 cm 0.6 - 1.0 / 0.6 - 0.9 cm LV Relative Wall Thickness 0.3 LVOT Diameter 1.6 cm Aortic Root Diameter 2.7 cm LA Volume Index 36.0 cm?/m? 16 - 28 cm?/m? DOPPLER AV Peak Velocity 281.0 cm/s AV Peak Gradient 31.6 mmHg AV Mean Gradient 17.5 mmHg AV Velocity Time Integral 58.0 cm AI Peak Velocity 286.0 cm/s AI Peak Gradient 32.7 mmHg AI Pressure Half Time 383.0 ms LVOT Peak Velocity 73.2 cm/s LVOT Peak Gradient 2.1 mmHg LVOT Velocity Time Integral 13.9 cm LVOT Cardiac Index 1035.3 cm?/min?m? AV Area Cont Eq vti 0.5 cm? AV Area Cont Eq pk 0.5 cm? MV Area PHT 5.9 cm? MR Peak Velocity 457.0 cm/s MR Peak Gradient 83.5 mmHg Mitral E Point Velocity 118.0 cm/s Mitral A Point Velocity 62.6 cm/s Mitral E to A Ratio 1.9 LV E' Lateral Velocity 5.5 cm/s Mitral E to LV E' Lateral Ratio 21.3 LV E' Septal Velocity 3.4 cm/s Mitral E to LV E' Septal Ratio 34.9 TR Peak Velocity 328.7 cm/s TR Peak Gradient 43.2 mmHg PV Peak Velocity 160.0 cm/s PV Peak Gradient 10.2 mmHg FINDINGS Left Ventricle Normal left ventricular size, wall thickness. Global left ventricular systolic function is severely decreased. The ejection fraction is visually estimated at 25 %. Right Ventricle The right ventricular size is mildy increased. The right ventricular systolic function is mildly decreased. The estimated right ventricular systolic pressure 68 mmHg. RAP 15. Left Atrium The left atrium is normal by two-dimensional, color flow and Doppler imaging with no structural abnormalities, no thrombus formation present. Right Atrium The right atrial cavity size is mildly increased. Atrial Septum The interatrial septum appears normal with no evidence of a shunt. Aorta The aorta is normal by two-dimensional, color flow and Doppler interrogation. Mitral Valve The mitral valve is normal by two-dimensional, color flow and Doppler interrogation. There is moderate mitral valve regurgitation, stenosis or prolapse. Aortic Valve Mild aortic valve regurgitation. Moderate aortic valve stenosis. Tricuspid Valve The tricuspid valve is normal by two-dimensional, color flow and Doppler interrogation. There is moderate tricuspid valve regurgitation. Pulmonic Valve The pulmonic valve is not well visualized. There is no significant pulmonic valve regurgitation. Vessels Trace PI. Pericardium There is a moderate pleural effusion. CONCLUSIONS Indication: Assess EF Ischemiccardiomyopathy with severe LV dysfunction. Estimated EF 25%. RV size is mildy increased. RV systolic function is mildly decreased. Estimated RVSP 68 mmHg. RAP 15. Mild biatrial dilation. Modearte to severe calcific aortic stenosis MOderate aortic regurgitation Moderate MR and TR Elisha Granados (Electronically Signed) Final Date: 08 April 2024 00:35
[2024-04-07] VITALS (13 sets, daily range): BP systolic 97–115; BP diastolic 58–70; PULSE 68–94; RESP 17–97; TEMP 36.3–36.6; O2SAT 92–99; BMI 30.4
--- NOTE | 2024-04-07 00:52 | PC.NURSE ---
Called household chores for magnesium sulfate as it is not stocked down here.
[2024-04-07] MEDS: Magnesium Sulfate 4 GM Ivpb 4 GM/50 ML BAG IV (02:02)
[2024-04-07 05:25] LABS: Basophils # (Auto) 0.1 Thou/mm3 (0.0-0.2); Basophils % (Auto) 1 % (0-2.5); Eosinophils # (Auto) 0.3 Thou/mm3 (0.0-0.5); Eosinophils % (Auto) 3 % (0-10); Hematocrit 40.2 % (41.0-53.0); Hemoglobin 13.2 g/dL (13.5-16.0); Immature Granulocytes % (Auto) 0 % (0-0); Immature Granulocytes Auto 0.02 Thou/mm3 (0.00-0.00); Lymphocytes # (Auto) 1.7 Thou/mm3 (1.0-4.8); Lymphocytes % (Auto) 17 % (10-50); Mean Corpuscular HGB Conc 32.8 g/dl (31.0-37.0); Mean Corpuscular Hemoglobin 29.3 pg (25.0-35.0); Mean Corpuscular Volume 89 fL (80-100); Monocytes # (Auto) 1.1 Thou/mm3 (0.0-0.8); Monocytes % (Auto) 11 % (0-12); Neutrophils # (Auto) 6.9 Thou/mm3 (1.8-7.7); Neutrophils % (Auto) 68 % (37-80); Nucleated Red Blood Cell % 0 /100 WBC (0); Platelet Count 247 Thou/mm3 (140-440); RDW Standard Deviation 51.7 fL (35.1-43.9); Red Blood Count 4.51 Miln/mm3 (4.50-5.90); White Blood Count 10.1 Thou/mm3 (3.8-10.6)
[2024-04-07] MEDS: FUROSEMIDE INJ 10 MG/ML 4ML VIAL 40 MG IVP ×2 (05:41→17:53)
[2024-04-07 05:53] LABS: Alanine Aminotransferase 43 U/L (10-49); Albumin, Serum 2.8 gm/dL (3.4-4.8); Alkaline Phosphatase 75 U/L (46-116); Anion Gap 8 (7-16); Aspartate Amino Transferase 47 U/L (0-34); BUN/Creatinine Ratio 20 Ratio (12-20); Bilirubin,Total 0.8 mg/dL (0.3-1.2); Blood Urea Nitrogen 24 mg/dL (9-23); Calcium 8.6 mg/dL (8.3-10.6); Calcium (Corrected) 9.6 mg/dL (8.5-10.1); Carbon Dioxide 36.3 mMol/L (20.0-31.0); Cardiac Risk Estimate 3.6 RATIO (4.0-6.7); Chloride 94 mMol/L (98-107); Cholesterol 129 mg/dL (132-200); Creatinine (Component) 1.2 mg/dL (0.6-1.3); Estimated Creatinine Clearance 53.9 mL/min (>60); Globulin 2.8 gm/dL (2.3-3.5); Glucose 142 mg/dL (74-106); HDL Cholesterol 36 mg/dL (40-60); LDL Cholesterol,Calculated 75 mg/dL (0-130); Osmolality,Calculated 281 (275-295); Phosphorous 4.4 mg/dL (2.4-5.1); Potassium 3.8 mMol/L (3.4-5.1); Sodium 138 mMol/L (136-145); Thyroid Stimulating Hormone 3.15 uIU/mL (0.55-4.78); Total Protein 5.6 gm/dL (5.7-8.2); Triglycerides 92 mg/dL (30-150); Troponin I 0.043 ng/mL (0.0-0.045); eGFR > 60 See Note
[2024-04-07] MEDS: CLOPIDOGREL BISULFATE 75 MG TABLET PO (08:40)
[2024-04-07] MEDS: ASPIRIN EC 81 MG TABEC PO (08:40)
[2024-04-07] MEDS: POTASSIUM CHLORIDE 20 mEq TABCR 40 MEQ PO (08:40)
[2024-04-07] MEDS: PANTOPRAZOLE 40 MG TABLET PO (08:41)
[2024-04-07] MEDS: SENNA TABLET 1 TAB PO (08:41)
[2024-04-07] MEDS: HEPARIN SOD INJ 5000 UNIT/ML VIAL SC ×2 (08:51→20:48)
[2024-04-07 09:28] LABS: Glucose Estimated Average 177 mg/dL (80-131); Hemoglobin A1C 7.8 % Hgb (4.8-6.0)
--- NOTE | 2024-04-07 11:15 | PC.SS ---
Initial assessment: this is 74 year old male admitted for CHF. Patient alert/oriented. Patient's spouse at bed side. Patient lives at home with spouse Shelly, who is also assigned emergency contact. Patient denies use of DME at home, patient informs he is ambulating with assistance. PCP is Dr. Jordan Lopez. [facility] Plan is to return home upon d/c . Family is able to transport home. Community resources provided. D/c plan: Home Next of kin: , Shelly Rush
--- NOTE | 2024-04-07 15:20 | PC.SS ---
Rounding note: pending echo and cardio recommendations.
--- NOTE | 2024-04-07 15:22 | PD.RESPRO ---
Documentation for date of: 04/07/24 Subjective Subjective Interval history: Overnight admission. Patient complaining of worsening lower edema extending into his upper thighs with increased scrotal swelling. Patient has continued to take home medication of lasix and denied medication non-adherance. Pateint's at bedside stated he has continued to take all his medication as instructed. Patient is not sure of his dry weight but previous admission in 2019 showed a weight of 72 kg, currently 82 kg. Increased shortness of breath with ambulation form bed to restroom at home. Postive for orthopnea and PNO. Dened chest pain. Denied pyrexia. Decreased urine output yesterday. Denied history of BPH and denied problems initiating a urine stream. On 3 Liters [place] -2004 Exam Vital Signs Temp Pulse Resp BP Pulse Ox O2 Del Method O2 Flow Rate 97.5 F 82 19 103/70 98 Nasal Cannula 3 04/07/24 12:00 04/07/24 12:00 04/07/24 12:00 04/07/24 12:00 04/07/24 12:00 04/07/24 12:04/07/24 12:00 FiO2 83 04/07/24 00:33 Narrative Exam General Appearance: Alert & Oriented X3, well-nourished male who is lying in bed in mild distress secondary to increased ANASARCA and mild shortness of breath HEENT: Skull symmetrical and atraumatic. Conjunctivae pink and moist. Pupils equal, round, reactive to light and accommodation (PERRL). External ear without lesion or discharge. Straight, nares patient, mucosa pink, no discharge. No thyroid nodule appreciated. No cervical lymphadenopathy. Cardio: Normal Rate and Rhythm with S1 and S2 heart sounds. Possible holosystolic murmur. Device noted on patient left chest. No bruits on carotid auscultation. Edema +3. Lungs: Symmetric with good expansion. Chest and back non-tender. Breath sounds vesicular without crackles, wheezing or rhonchi Abdomen: Non-tender, Non-distended, Normal Reactive Bowel Sounds Neuro: Alert, cooperative, oriented to person, place, and time. Speech clear. CN grossly intact. Upper motor strength 5/5 and Lower motor strength 5/5. Sensation intact. Objective Labs 04/12/24 04:38 04/12/24 04:38 Labs: Laboratory Results - last 24 hr 04/06/24 04/06/24 04/07/24 18:27 19:02 04:49 WBC 9.3 10.1 RBC 4.54 4.51 Hgb 13.3 L 13.2 L Hct 40.5 L 40.2 L MCV 89 89 MCH 29.3 29.3 MCHC 32.8 32.8 RDW Std Deviation 51.1 H 51.7 H Plt Count 286 247 D Neut % (Auto) 65 68 Lymph % (Auto) 20 17 [place] % (Auto) 12 11 Eos % (Auto) 3 3 Baso % (Auto) 1 1 Neut # (Auto) 6.1 6.9 Lymph # (Auto) 1.8 1.7 [place] # (Auto) 1.1 H 1.1 H Eos # (Auto) 0.3 0.3 Baso # (Auto) 0.1 0.1 Immature Gran # (Auto) 0.02 H 0.02 H Absolute Nucleated RBC 0.00 0.00 Immature Gran % 0 0 Nucleated RBC % 0 0 PT 11.5 INR 1.1 APTT 25.0 Sodium 137 138 Potassium 4.1 3.8 Chloride 97 L 94 L Carbon Dioxide 36.2 H 36.3 H Anion Gap 4 L 8 BUN 24 H 24 H Creatinine 1.3 1.2 Estim Creat Clear Calc 49.7 L 53.9 L eGFR 57 L > 60 BUN/Creatinine Ratio 18 20 Glucose [address] Glu mg/dL 177 H Hemoglobin A1c 7.8 H Calculated Osmolality 279 281 Calcium 8.1 L 8.6 Corrected Calcium 9.1 9.6 Phosphorus 4.4 Magnesium 1.4 L 2.0 Total Bilirubin 0.5 0.8 AST 63 H 47 H ALT 48 43 Alkaline Phosphatase 75 75 Troponin I 0.056 H* 0.043 B-Natriuretic Peptide 1702 H* Total Protein 5.2 L 5.6 L Albumin 2.8 L 2.8 L Globulin 2.4 2.8 Albumin/Globulin Ratio 1.2 1.0 L Triglycerides 92 Cholesterol 129 L LDL Cholesterol, Calc 75 HDL Cholesterol 36 L Cholesterol/HDL Ratio 3.6 L TSH 3.15 Ur Collection Type Clean Catch Urine Color Lt-Yellow Urine Clarity Clear Urine pH 7.0 Ur Specific [place] 1.015 Urine Protein Negative Urine Glucose (UA) 4+ A Urine Ketones Negative Urine Blood Negative Urine Nitrite Negative Urine Bilirubin Negative Urine Urobilinogen (Auto) Negative Ur Leukocyte Esterase Negative Urine RBC 5 H Urine WBC 2 Ur Squamous Epith Cells < 1 Urine Bacteria 4+ A Quality Measures Quality Measures none Advance care planning discussed with:: patient and spouse Assessment & Plan Assessment Current Active Medications: Generic Name Dose Route Start Last Admin Trade Name Freq PRN Reason Stop Dose Admin Acetaminophen 650 mg 04/07/24 14:09 Acetaminophen 325 Mg Tablet PO 05/06/24 23:08 Q6H PRN Fever >100.3 or pain 1-3 Hydrocodone Bitart/Acetaminophen 1 tab 04/06/24 23:09 Hydrocodone/Apap 5/325 Tablet PO 04/11/24 23:08 Q4HR PRN PAIN SCALE 4-10(Mod-Sev Albuterol/Ipratropium 3 ml 04/06/24 23:09 Albuterol/Ipratropium (Duoneb) Rt Margaret 3 Ml Nebu INH 05/06/24 23:08 Q2HR PRN SHORTNESS OF BREATH OR WHEEZE Aspirin 81 mg 04/07/24 09:00 04/07/24 08:40 Aspirin Ec 81 Mg Tabec PO 05/07/24 08:59 81 mg QDAY MASSIEL Administration Atorvastatin Calcium 40 mg 04/07/24 21:00 Atorvastatin Calcium 20 Mg Tablet PO 05/07/24 20:59 HS MASSIEL Clopidogrel Bisulfate 75 mg 04/07/24 09:00 04/07/24 08:40 Clopidogrel Bisulfate 75 Mg Tablet PO 05/07/24 08:59 75 mg QDAY MASSIEL Administration Dextrose 50 ml 04/06/24 23:19 Dextrose 50%-Water Inj 50 Ml Syringe IV 05/06/24 23:18 Q15MIN PRN BG <50 OR BG <70 & pt unresponsive Furosemide 40 mg 04/07/24 06:00 04/07/24 05:41 Furosemide Inj 10 Mg/Ml 4ml Vial IVP 05/07/24 05:59 40 mg BIDD MASSIEL Administration Glucagon 1 mg 04/07/24 15:00 Glucagon Inj 1 Mg Vial IM Q15MIN PRN BG <70, and no IV access Heparin Sodium (Porcine) 5,000 unit 04/07/24 21:00 Heparin Sod Inj 5000 Unit/Ml Vial SC 04/21/24 08:59 BID MASSIEL Insulin Human Lispro 0 unit 04/07/24 15:01 Insulin Lispro (Admelog) 1 Unit/0.01 Ml Unit SC 05/07/24 07:29 AC MASSIEL Protocol Ondansetron HCl 4 mg 04/06/24 23:09 Ondansetron Inj 2 Mg/Ml Inj 2 Ml IV 05/06/24 23:08 Q6H PRN NAUSEA OR VOMITING Protocol Pantoprazole Sodium 40 mg 04/07/24 09:00 04/07/24 08:41 Pantoprazole 40 Mg Tablet PO 05/07/24 08:59 40 mg QDAY MASSIEL Administration Sennosides 1 tab 04/07/24 09:00 04/07/24 08:41 Senna Tablet PO 05/07/24 08:59 1 tab QDAY MASSIEL Administration Protocol Plan Patient is a 74-year-old male with past medical history significant for essential hypertension, eho-xpdgktm-yofjisxuf diabetes mellitus type 2, chronic systolic congestive heart failure [40%], NSTEMI [2019], coronary artery disease presented with a chief complaint of lower and upper extremity swelling since 03/17/2024. Patient will be admitted for treatment and management of acute decompensated chronic systolic congestive heart failure exacerbation. #Acute hypoxic respiratory failure, improving # Acute decompensated chronic systolic congestive heart failure exacerbation 40% (2019) #ANASARCA #History of NSTEMI s/p CABG 2019 #Coronary artery disease # Hyperlipidemia Patient presented with a 3-week history of progressively worsening lower and upper extremity edema and shortness of breath On exam patient appears tachypneic and 4+ pitting edema up to hips bilaterally including the sacral. On auscultation bibasilar crackles Chest x-ray significant for bibasilar consolidation and bilateral pleural effusions. EKG significant for dual-chamber pacemaker, left axis deviation, Q waves in inferior leads. No evidence of ST changes. TSH normal limits ASCVD 37.6% NYHA class D stage IV BNP 1702 Home diuretic Lasix 40 Mg p.o. daily Plan: - Pending Echo ? Lasix 40 Mg IV twice daily -Aspirin 81 mg Qday -Atorvastin 40 mg HS ? 2G sodium restricted diet ? Strict input output ? Diaz catheter ? Daily weights ? 1500 cc/day fluid restriction ? Avoid beta-blockers until improved CHF exacerbation (home med of Carvedilol and Spironlactone) ? Holding ARB and SGLT2 at this time to give blood pressure room for extra diuresis if necessary. ? Maintain K >4 and Mg >2 at all times to prevent any arrhythmias #Troponinemia likely NSTEMI type II demand ischemia Patient denies any ACS symptoms including chest pain/pressure or palpitations. No ST elevations noted on EKG. Troponin down trended going from 0.056-0.43. Troponin mildly elevated at 0.056. Etiology most likely in the setting of CHF exacerbation and CKD Plan: ?continue to treat underlying cause of CHF exacerbation #Esg-ghgrdxw-ndyguvjeu diabetes mellitus type 2 Home medication metformin 850 Mg p.o. twice daily and Jardiance (but for heart failure). Fasting glucose with morning labs of 142 and A1c 7.8%. Plan: ? Low consistent carb diet ? SSI to cover for any blood glucose spikes #CKD stage III A On admission CR 1.3. This appears to be his baseline Plan: ? Renally dose medication ? Avoid nephrotoxic agents #Essential hypertension On admission BP 104/59 Plan: ? Patient currently on IV diuresis with Lasix 40 Mg IV twice daily Health maintenance: Disposition: IV diuresis. Diet: Low consistent carb and cardiac Lines: pIVs GI Prophylaxis: Pantoprazole Thrombo Prophylaxis: Heparin 5000 U SC twice daily Code status: FULL CODE - The patient's plan was discussed with attending Dr. Hollins and senior residents Dr. Edil Armendariz MD PGY1 Internal Medicine Attending Provider Attestation/Addendum I have examined the patient, reviewed labs and imaging findings, discussed the case with the resident(s), and reviewed entered orders. I agree with the plan of care as outlined in this note, with these additional summaries/recommendations: 74-year-old male admitted for CHF exacerbation with lower extremity edema up to the thigh and scrotal edema. Patient currently on nasal cannula oxygen and appears to be a bit labored. Continue with aggressive diuresis and obtain new echo and follow-up with cardiology recommendations for medication adjustment. Patient reports he had [place] food which may have led to exacerbation. Edmundo Hollins MD
[2024-04-07 16:07] LABS: Influenza A Ag Negative; Influenza B Ag Negative; Respiratory Syncytial Virus Ag Negative (Negative)
[2024-04-07] MEDS: INSULIN LISPRO (AdmeLOG) 1 UNIT/0.01 ML UNIT SC (17:55)
[2024-04-07] MEDS: ATORVASTATIN CALCIUM 20 MG TABLET 40 MG PO (20:48)
[2024-04-07] MEDS: ALBUTEROL/IPRATROPIUM (Duoneb) RT SOL 3 ML NEBU INH (21:14)
[2024-04-08] VITALS (10 sets, daily range): BP systolic 96–116; BP diastolic 56–66; PULSE 61–94; RESP 14–24; TEMP 36.4–36.9; O2SAT 93–99
[2024-04-08] MEDS: FUROSEMIDE INJ 10 MG/ML 4ML VIAL 40 MG IVP ×2 (05:12→17:48)
[2024-04-08 06:01] LABS: Basophils % (Auto) 1 % (0-2.5); Eosinophils # (Auto) 0.2 Thou/mm3 (0.0-0.5); Eosinophils % (Auto) 2 % (0-10); Hematocrit 37.8 % (41.0-53.0); Immature Granulocytes % (Auto) 1 % (0-0); Immature Granulocytes Auto 0.04 Thou/mm3 (0.00-0.00); Lymphocytes # (Auto) 1.5 Thou/mm3 (1.0-4.8); Lymphocytes % (Auto) 19 % (10-50); Mean Corpuscular HGB Conc 31.7 g/dl (31.0-37.0); Mean Corpuscular Volume 91 fL (80-100); Monocytes # (Auto) 0.9 Thou/mm3 (0.0-0.8); Monocytes % (Auto) 11 % (0-12); Neutrophils # (Auto) 5.3 Thou/mm3 (1.8-7.7); Neutrophils % (Auto) 66 % (37-80); Nucleated Red Blood Cell % 0 /100 WBC (0); Platelet Count 305 Thou/mm3 (140-440); RDW Standard Deviation 52.5 fL (35.1-43.9); Red Blood Count 4.14 Miln/mm3 (4.50-5.90)
[2024-04-08 06:25] LABS: Alanine Aminotransferase 32 U/L (10-49); Albumin, Serum 2.8 gm/dL (3.4-4.8); Albumin/Globulin Ratio 1.1 (1.2-2.2); Alkaline Phosphatase 68 U/L (46-116); Anion Gap 3 (7-16); Aspartate Amino Transferase 30 U/L (0-34); BUN/Creatinine Ratio 19 Ratio (12-20); Bilirubin,Total 0.6 mg/dL (0.3-1.2); Blood Urea Nitrogen 25 mg/dL (9-23); Calcium 8.4 mg/dL (8.3-10.6); Calcium (Corrected) 9.4 mg/dL (8.5-10.1); Carbon Dioxide 38.7 mMol/L (20.0-31.0); Chloride 95 mMol/L (98-107); Creatinine (Component) 1.3 mg/dL (0.6-1.3); Estimated Creatinine Clearance 48.8 mL/min (>60); Globulin 2.6 gm/dL (2.3-3.5); Glucose 168 mg/dL (74-106); Magnesium 1.9 mg/dL (1.6-2.6); Osmolality,Calculated 282 (275-295); Phosphorous 4.8 mg/dL (2.4-5.1); Potassium 4.3 mMol/L (3.4-5.1); Sodium 137 mMol/L (136-145); Total Protein 5.4 gm/dL (5.7-8.2); eGFR 57 See Note
[2024-04-08] MEDS: ALBUTEROL/IPRATROPIUM (Duoneb) RT SOL 3 ML NEBU INH (06:45)
[2024-04-08] MEDS: SENNA TABLET 1 TAB PO (08:05)
[2024-04-08] MEDS: PANTOPRAZOLE 40 MG TABLET PO (08:05)
[2024-04-08] MEDS: CLOPIDOGREL BISULFATE 75 MG TABLET PO (08:06)
[2024-04-08] MEDS: HEPARIN SOD INJ 5000 UNIT/ML VIAL SC ×2 (08:06→21:02)
[2024-04-08] MEDS: ASPIRIN EC 81 MG TABEC PO (08:06)
[2024-04-08] MEDS: INSULIN LISPRO (AdmeLOG) 1 UNIT/0.01 ML UNIT SC ×2 (12:06→17:49)
--- NOTE | 2024-04-08 14:37 | ESPR_ITS ---
Documentation for date of: 04/08/24 Subjective Subjective Interval history: Patient seen and examined at bedside. With family at bedside. States he is feeling much better. Denies chest pain. Endorses taking all his medications and following fluid restriction. Per family at bedside, patient was craving [place] food (alejandra mein and mushrooms) which likely exacerbated his CHF exacerbation. Diuresisng. UOP 2L yesterday. Exam Vital Signs Temp Pulse Resp BP Pulse Ox O2 Del Method O2 Flow Rate 97.5 F 61 23 H 105/58 L 95 Nasal Cannula 2 04/08/24 12:00 04/08/24 12:00 04/08/24 12:00 04/08/24 12:00 04/08/24 12:00 04/08/24 12:04/08/24 12:00 FiO2 83 04/07/24 00:33 Narrative Exam Constitutional: NAD. HEENT: NCAT. Vision grossly intact. Respiratory: CTAB bilaterally. Cardiac: RRR. Palpable pacemaker. Systolic ejection murmur appreciated. Abdomen: Soft, non-distended, non-tender. No guarding, no rebound. MSK: b/l LE edema 3+ Skin: Warm, dry, intact. No obvious lesions. Neuro: Motor and sensation grossly intact. Psychiatric: Appropriate mood and affect. Objective Labs 04/13/24 04:08 04/13/24 04:08 Labs: Laboratory Results - last 24 hr 04/07/24 04/08/24 12:23 05:34 WBC 8.0 RBC 4.14 L Hgb 12.0 L Hct 37.8 L MCV 91 MCH 29.0 MCHC 31.7 RDW Std Deviation 52.5 H Plt Count 305 D Neut % (Auto) 66 Lymph % (Auto) 19 [place] % (Auto) 11 Eos % (Auto) 2 Baso % (Auto) 1 Neut # (Auto) 5.3 Lymph # (Auto) 1.5 [place] # (Auto) 0.9 H Eos # (Auto) 0.2 Baso # (Auto) 0.0 Immature Gran # (Auto) 0.04 H Absolute Nucleated RBC 0.00 Immature Gran % 1 H Nucleated RBC % 0 Sodium 137 Potassium 4.3 D Chloride 95 L Carbon Dioxide 38.7 H Anion Gap 3 L BUN 25 H Creatinine 1.3 Estim Creat Clear Calc 48.8 L eGFR 57 L BUN/Creatinine Ratio 19 Glucose 168 H Calculated Osmolality 282 Calcium 8.4 Corrected Calcium 9.4 Phosphorus 4.8 Magnesium 1.9 Total Bilirubin 0.6 AST 30 ALT 32 Alkaline Phosphatase 68 Total Protein 5.4 L Albumin 2.8 L Globulin 2.6 Albumin/Globulin Ratio 1.1 L Influenza A (Rapid) Negative Influenza B (Rapid) Negative RSV Rapid Negative Quality Measures Quality Measures none Advance care planning discussed with:: patient Assessment & Plan Assessment Current Active Medications: Generic Name Dose Route Start Last Admin Trade Name Freq PRN Reason Stop Dose Admin Acetaminophen 650 mg 04/07/24 14:09 Acetaminophen 325 Mg Tablet PO 05/06/24 23:08 Q6H PRN Fever >100.3 or pain 1-3 Hydrocodone Bitart/Acetaminophen 1 tab 04/06/24 23:09 Hydrocodone/Apap 5/325 Tablet PO 04/11/24 23:08 Q4HR PRN PAIN SCALE 4-10(Mod-Sev Albuterol/Ipratropium 3 ml 04/06/24 23:09 04/08/24 06:45 Albuterol/Ipratropium (Duoneb) Rt Margaret 3 Ml Nebu INH 05/06/24 23:08 3 ml Q2HR PRN Administration SHORTNESS OF BREATH OR WHEEZE Aspirin 81 mg 04/07/24 09:00 04/08/24 08:06 Aspirin Ec 81 Mg Tabec PO 05/07/24 08:59 81 mg QDAY MASSIEL Administration Atorvastatin Calcium 40 mg 04/07/24 21:00 04/07/24 20:48 Atorvastatin Calcium 20 Mg Tablet PO 05/07/24 20:59 40 mg HS MASSIEL Administration Clopidogrel Bisulfate 75 mg 04/07/24 09:00 04/08/24 08:06 Clopidogrel Bisulfate 75 Mg Tablet PO 05/07/24 08:59 75 mg QDAY MASSIEL Administration Dextrose 50 ml 04/06/24 23:19 Dextrose 50%-Water Inj 50 Ml Syringe IV 05/06/24 23:18 Q15MIN PRN BG <50 OR BG <70 & pt unresponsive Furosemide 40 mg 04/07/24 06:00 04/08/24 05:12 Furosemide Inj 10 Mg/Ml 4ml Vial IVP 05/07/24 05:59 40 mg BIDD MASSIEL Administration Glucagon 1 mg 04/07/24 15:00 Glucagon Inj 1 Mg Vial IM Q15MIN PRN BG <70, and no IV access Heparin Sodium (Porcine) 5,000 unit 04/07/24 21:00 04/08/24 08:06 Heparin Sod Inj 5000 Unit/Ml Vial SC 04/21/24 08:59 5,000 unit BID MASSIEL Administration Insulin Human Lispro 0 unit 04/07/24 15:01 04/08/24 12:06 Insulin Lispro (Admelog) 1 Unit/0.01 Ml Unit SC 05/07/24 07:29 1 unit AC MASSIEL Administration Protocol Ondansetron HCl 4 mg 04/06/24 23:09 Ondansetron Inj 2 Mg/Ml Inj 2 Ml IV 05/06/24 23:08 Q6H PRN NAUSEA OR VOMITING Protocol Pantoprazole Sodium 40 mg 04/07/24 09:00 04/08/24 08:05 Pantoprazole 40 Mg Tablet PO 05/07/24 08:59 40 mg QDAY MASSIEL Administration Sennosides 1 tab 04/07/24 09:00 04/08/24 08:05 Senna Tablet PO 05/07/24 08:59 1 tab QDAY MASSIEL Administration Protocol Plan Patient is a 74-year-old male with past medical history significant for essential hypertension, tgr-[id number]-[id number] diabetes mellitus type 2, chronic systolic congestive heart failure [40%], NSTEMI [2019], coronary artery disease presented with a chief complaint of lower and upper extremity swelling since 03/17/2024. Patient will be admitted for treatment and management of acute decompensated chronic systolic congestive heart failure exacerbation. #Acute hypoxic respiratory failure, improving Secondary to acute CHF exacerbation, treat as below. #Acute decompensated ischemic cardiomyopathy, HFrEF exacerbation EF 25% #Anasarca #Troponinemia, likely Type II NYHA class D stage IV BNP 1702 Chest x-ray significant for bibasilar consolidation and bilateral pleural effusions. EKG significant left axis deviation, Q waves in inferior leads. No evidence of ST changes. Troponin 0.056 downtrending ? Lasix 40 Mg IV twice daily ? 2G sodium restricted diet - Strict input output ? Diaz catheter ? Daily weights ? 1500 cc/day fluid restriction ? Avoid beta-blockers until improved CHF exacerbation (home med of Carvedilol and Spironlactone) ? Holding ARB and SGLT2 at this time to give blood pressure room for extra diuresis if necessary. ? Maintain K >4 and Mg >2 at all times to prevent any arrhythmias - Cardiology Dr. Gar consulted, appreciate reccs - Anticipate restarting GDMT prior to discharge as tolerated #Aortic Stenosis #History of CABG 2019 #Coronary artery disease #Hyperlipidemia EKG significant for dual-chamber pacemaker, left axis deviation, Q waves in inferior leads. No evidence of ST changes. - Aspirin 81 mg Qday - Atorvastin 40 mg HS #Tbv-iotoiri-fsljhkuxa diabetes mellitus type 2, A1c 7.8 Hold home metformin ? Low consistent carb diet ? SSI to cover for any blood glucose spikes #CKD stage III A ? Renally dose medication ? Avoid nephrotoxic agents #Essential hypertension ? Patient currently on IV diuresis with Lasix 40 Mg IV twice daily Health maintenance: Disposition: IV diuresis. Diet: Low consistent carb and cardiac Lines: pIVs GI Prophylaxis: Pantoprazole Thrombo Prophylaxis: Heparin 5000 U SC twice daily Code status: FULL CODE I have reviewed and discussed the patient's care with my attending, Dr. Gurvinder Louie MD PGY-3 Attending Provider Attestation/Addendum Patient seen and examined at bedside with resident. Agree with the assessment and plan as documented above. Patient diuresing well. Echo showed mod to severe with EF 25%. Cardiology consulted for new recommendations on management. Edmundo Hollins MD
[2024-04-08] MEDS: ATORVASTATIN CALCIUM 20 MG TABLET 40 MG PO (21:01)
[2024-04-09] VITALS (14 sets, daily range): BP systolic 99–115; BP diastolic 54–78; PULSE 67–99; RESP 13–81; TEMP 36.2–36.8; O2SAT 93–99
[2024-04-09] MEDS: ALBUTEROL/IPRATROPIUM (Duoneb) RT SOL 3 ML NEBU INH (00:06)
--- NOTE | 2024-04-09 02:16 | ESCONSULT_ITS ---
RE: JALEESA BRIDGES : 1950 DATE OF CONSULTATION: 04/08/2024 CONSULTING PHYSICIAN: Hospitalist. REASON FOR CONSULTATION: Evaluation of shortness of breath, congestive heart failure, aortic stenosis. HISTORY OF PRESENT ILLNESS: The patient is a 74-year-old male with longstanding history of ischemic cardiomyopathy, congestive heart failure who had a cardiac catheterization in 2019 that showed evidence of severe multivessel coronary artery disease, evidence of chronic total occlusion of RCA, excellent collaterals, severe diffuse LAD stenosis, and moderate circumflex stenosis at that time. Medical management was given. The patient did have moderate LV dysfunction. Ejection fraction was around 35%. He did undergo ICD implantation. Subsequently, he was doing well until recently. The patient is having severe shortness of breath, came to the office with swelling of both feet, congestive heart failure symptoms. The patient is also found to have echocardiogram with evidence of severe LV dysfunction, EF 25% significant drop and severe aortic stenosis as well with low gradient2 with aortic velocity 2.8 m/sec. The patient is feeling better. The patient is receiving IV diuretics, Lasix 40 mg IV twice daily, improved symptoms. Continue on subcutaneous heparin as well and pantoprazole. MEDICATIONS AT HOME: The patient is on 1. Atorvastatin 40 mg daily. 2. Carvedilol low dose 3.125 mg b.i.d. 3. Plavix 75 mg daily. 4. Jardiance 10 mg daily. 5. Lasix 40 mg daily. 6. Losartan 25 mg daily. 7. Spironolactone 25 mg daily. 8. Metformin 850 mg b.i.d. PAST MEDICAL HISTORY: CAD, status post myocardial infarction, multivessel CAD, ischemic cardiomyopathy, chronic occlusion of RCA, diffuse LAD stenosis, ejection fraction 35%, but now it is 25% and aortic stenosis, diabetes mellitus, hypertension. SOCIAL HISTORY: The patient is and lives with his . He does not smoke or drink alcoholic beverages. FAMILY HISTORY: Noncontributory. PHYSICAL EXAMINATION: GENERAL: Well-nourished elderly male, alert, awake, in no acute discomfort. VITAL SIGNS: Blood pressure is 110/70. Pulse rate is 60 regular. Respirations 18. Temperature normal. HEENT: Head is atraumatic. NECK: Supple. No JVD. CHEST: Symmetrical. LUNGS: Decreased breath sounds. No rales or rhonchi. HEART: S1, S2, regular. Loud systolic murmurs heard at the aortic area. ABDOMEN: Thin and soft. EXTREMITIES: Mild edema, improved from admission. GENITOURINARY AND RECTAL: Not performed. NEUROLOGIC: Normal. DIAGNOSTIC DATA: Electrocardiogram showed evidence of sinus rhythm with nonspecific changes. Echo showed evidence of palrjori-ij-sbkguf stenosis with low ejection fraction of 25%. Chest x-ray showed evidence of mild pulmonary congestion, bilateral pleural effusions, bibasilar infiltrate. IMPRESSION/ASSESSMENT: 1. Acute on chronic systolic heart failure with ischemic cardiomyopathy. 2. Severe multivessel coronary artery disease by previous angiogram. 3. Status post ICD implantation. 4. Tideduco-bz-xpacdz aortic stenosis. RECOMMENDATIONS: The patient will continue IV diuretic therapy for now and we will restart low-dose beta-amie and ARB as tolerated. The patient may be treated with Entresto at this time if his blood pressure is tolerating. Because of aortic stenosis and also cardiomyopathy, congestive heart failure, we will consider doing right and left heart cardiac catheterization, coronary angiogram prior to discharge, possibly on Wednesday and determine if he is a candidate for revascularization bypass surgery. DT: 00:24:22 TT: 02:08:00 Ref: [id number] - TID: [id number]
[2024-04-09] MEDS: FUROSEMIDE INJ 10 MG/ML 4ML VIAL 40 MG IVP ×2 (05:27→17:36)
[2024-04-09 05:42] LABS: Basophils # (Auto) 0.1 Thou/mm3 (0.0-0.2); Basophils % (Auto) 1 % (0-2.5); Eosinophils # (Auto) 0.1 Thou/mm3 (0.0-0.5); Eosinophils % (Auto) 1 % (0-10); Hematocrit 39.9 % (41.0-53.0); Hemoglobin 12.5 g/dL (13.5-16.0); Immature Granulocytes % (Auto) 0 % (0-0); Immature Granulocytes Auto 0.02 Thou/mm3 (0.00-0.00); Lymphocytes # (Auto) 1.7 Thou/mm3 (1.0-4.8); Lymphocytes % (Auto) 17 % (10-50); Mean Corpuscular HGB Conc 31.3 g/dl (31.0-37.0); Mean Corpuscular Hemoglobin 28.9 pg (25.0-35.0); Mean Corpuscular Volume 92 fL (80-100); Monocytes # (Auto) 1.1 Thou/mm3 (0.0-0.8); Monocytes % (Auto) 11 % (0-12); Neutrophils % (Auto) 71 % (37-80); Nucleated Red Blood Cell % 0 /100 WBC (0); Platelet Count 223 Thou/mm3 (140-440); RDW Standard Deviation 53.2 fL (35.1-43.9); Red Blood Count 4.32 Miln/mm3 (4.50-5.90); White Blood Count 9.9 Thou/mm3 (3.8-10.6)
[2024-04-09 06:15] LABS: Alanine Aminotransferase 29 U/L (10-49); Albumin, Serum 2.9 gm/dL (3.4-4.8); Alkaline Phosphatase 69 U/L (46-116); Anion Gap 7 (7-16); Aspartate Amino Transferase 29 U/L (0-34); BUN/Creatinine Ratio 21 Ratio (12-20); Bilirubin,Total 0.6 mg/dL (0.3-1.2); Blood Urea Nitrogen 25 mg/dL (9-23); Calcium 8.1 mg/dL (8.3-10.6); Chloride 93 mMol/L (98-107); Creatinine (Component) 1.2 mg/dL (0.6-1.3); Estimated Creatinine Clearance 52.9 mL/min (>60); Globulin 2.8 gm/dL (2.3-3.5); Glucose 162 mg/dL (74-106); Magnesium 1.8 mg/dL (1.6-2.6); Osmolality,Calculated 284 (275-295); Phosphorous 4.3 mg/dL (2.4-5.1); Sodium 138 mMol/L (136-145); Total Protein 5.7 gm/dL (5.7-8.2); eGFR > 60 See Note
[2024-04-09] MEDS: INSULIN LISPRO (AdmeLOG) 1 UNIT/0.01 ML UNIT SC ×3 (08:00→17:37)
[2024-04-09] MEDS: HEPARIN SOD INJ 5000 UNIT/ML VIAL SC (08:01)
[2024-04-09] MEDS: PANTOPRAZOLE 40 MG TABLET PO (08:02)
[2024-04-09] MEDS: SENNA TABLET 1 TAB PO (08:02)
[2024-04-09] MEDS: ASPIRIN EC 81 MG TABEC PO (08:02)
[2024-04-09] MEDS: CLOPIDOGREL BISULFATE 75 MG TABLET PO (08:02)
[2024-04-09] MEDS: carVEDILOL 3.125 MG TABLET PO ×2 (09:08→17:38)
--- NOTE | 2024-04-09 11:47 | XR_ITS ---
Examination: Duplex scan of the upper extremity, unilateral right Date and time of exam: April 09, 2024 1536 hours INDICATIONS: Right hand swelling and pain beginning one week ago Technique: Duplex scan of the extremity veins using B-mode/grayscale imaging and Doppler spectral analysis and color flow Attention is directed to internal echogenicity, compression and augmentation involving these veins, color flow assessment, spectral analysis Findings: Major deep venous structures in the extremity demonstrate normal course and caliber. There is no evidence of deep vein thrombosis. Normal color flow and spectral analysis Positive for nonocclusive thrombus in the basilic vein Impression: Negative for DVT.. Positive for nonocclusive thrombus in the superficial basilic vein
--- NOTE | 2024-04-09 13:28 | ESPR_ITS ---
Documentation for date of: 04/09/24 Subjective Subjective Interval history: Patient was seen at bedside this morning. No overnight events. Echo showed 25% ejection fraction and severe aortic stenosis. Clinical Genetics Laboratory Chief wanted to start patient back on low-dose beta-amie as well as, but patient's blood pressure has been on the lower end therefore we will start low-dose beta-amie for now and monitor patient's blood pressure before starting ARB as well. Cardiology also stated that patient will most likely need a right heart catheterization possibly done before discharge. Patient's right upper extremity was still more swollen than the left therefore ordered ultrasound Doppler of the right upper extremity. No other complaints at this time. Exam Vital Signs Temp Pulse Resp BP Pulse Ox O2 Del Method O2 Flow Rate 97.2 F 76 24 H 99/54 L 99 Nasal Cannula 3 04/09/24 12:00 04/09/24 12:00 04/09/24 12:00 04/09/24 12:00 04/09/24 12:00 04/09/24 12:00 04/09/24 12:00 FiO2 83 04/09/24 12:00 Narrative Exam General: A/O x3, no acute distress Eyes: PERRL, EOMI. Anicteric, vision grossly intact. Ears: No ear pain, no ear discharge, Hearing grossly intact. Nose: No nasal discharge. Mouth/Throat: Dry mucous membranes, no redness, no lesions. Neck: Neck supple, non-tender, no cervical lymphadenopathy. Lungs: Decreased breath sounds STEPHANIE, No accessory muscle use. Cardio: Normal S1/S2, regular rhythm, systolic ejection murmur, no JVD Abdomen: Soft, non-tender, no palpable masses, peristalsis present, no guarding or rebound. Extremities: Symmetrical, no significant deformities, 2+ edema Stephanie LE upto mid thigh, 1+ L UE edema, 2+ R UE edema , non-tender, peripheral pulses presents. Skin: No rashes, no lesions, warm to touch. Neuro: No focal neurological deficits. motor and sensory intact Psych: Cooperative, appropriate mood and effect. Objective Labs 04/11/24 04:20 04/11/24 04:20 Labs: Laboratory Results - last 24 hr 04/09/24 05:11 WBC 9.9 RBC 4.32 L Hgb 12.5 L Hct 39.9 L MCV 92 MCH 28.9 MCHC 31.3 RDW Std Deviation 53.2 H Plt Count 223 D Neut % (Auto) 71 Lymph % (Auto) 17 [place] % (Auto) 11 Eos % (Auto) 1 Baso % (Auto) 1 Neut # (Auto) 7.0 Lymph # (Auto) 1.7 [place] # (Auto) 1.1 H Eos # (Auto) 0.1 Baso # (Auto) 0.1 Immature Gran # (Auto) 0.02 H Absolute Nucleated RBC 0.00 Immature Gran % 0 Nucleated RBC % 0 Sodium 138 Potassium 4.0 Chloride 93 L Carbon Dioxide 38.0 H Anion Gap 7 BUN 25 H Creatinine 1.2 Estim Creat Clear Calc 52.9 L eGFR > 60 BUN/Creatinine Ratio 21 H Glucose 162 H Calculated Osmolality 284 Calcium 8.1 L Corrected Calcium 9.0 Phosphorus 4.3 Magnesium 1.8 Total Bilirubin 0.6 AST 29 ALT 29 Alkaline Phosphatase 69 Total Protein 5.7 Albumin 2.9 L Globulin 2.8 Albumin/Globulin Ratio 1.0 L Quality Measures Quality Measures none Advance care planning discussed with:: patient and spouse Assessment & Plan Assessment Current Active Medications: Generic Name Dose Route Start Last Admin Trade Name Freq PRN Reason Stop Dose Admin Acetaminophen 650 mg 04/07/24 14:09 Acetaminophen 325 Mg Tablet PO 05/06/24 23:08 Q6H PRN Fever >100.3 or pain 1-3 Hydrocodone Bitart/Acetaminophen 1 tab 04/06/24 23:09 Hydrocodone/Apap 5/325 Tablet PO 04/11/24 23:08 Q4HR PRN PAIN SCALE 4-10(Mod-Sev Albuterol/Ipratropium 3 ml 04/06/24 23:09 04/09/24 00:06 Albuterol/Ipratropium (Duoneb) Rt Margaret 3 Ml Nebu INH 05/06/24 23:08 3 ml Q2HR PRN Administration SHORTNESS OF BREATH OR WHEEZE Aspirin 81 mg 04/07/24 09:00 04/09/24 08:02 Aspirin Ec 81 Mg Tabec PO 05/07/24 08:59 81 mg QDAY MASSIEL Administration Atorvastatin Calcium 40 mg 04/07/24 21:00 04/08/24 21:01 Atorvastatin Calcium 20 Mg Tablet PO 05/07/24 20:59 40 mg HS MASSIEL Administration Carvedilol 3.125 mg 04/09/24 08:25 04/09/24 09:08 Carvedilol 3.125 Mg Tablet PO 05/09/24 08:24 3.125 mg BIDWM MASSIEL Administration Clopidogrel Bisulfate 75 mg 04/07/24 09:00 04/09/24 08:02 Clopidogrel Bisulfate 75 Mg Tablet PO 05/07/24 08:59 75 mg QDAY MASSIEL Administration Dextrose 50 ml 04/06/24 23:19 Dextrose 50%-Water Inj 50 Ml Syringe IV 05/06/24 23:18 Q15MIN PRN BG <50 OR BG <70 & pt unresponsive Furosemide 40 mg 04/07/24 06:00 04/09/24 05:27 Furosemide Inj 10 Mg/Ml 4ml Vial IVP 05/07/24 05:59 40 mg BIDD MASSIEL Administration Glucagon 1 mg 04/07/24 15:00 Glucagon Inj 1 Mg Vial IM Q15MIN PRN BG <70, and no IV access Heparin Sodium (Porcine) 5,000 unit 04/07/24 21:00 04/09/24 08:01 Heparin Sod Inj 5000 Unit/Ml Vial SC 04/21/24 08:59 5,000 unit BID MASSIEL Administration Insulin Human Lispro 0 unit 04/07/24 15:01 04/09/24 11:47 Insulin Lispro (Admelog) 1 Unit/0.01 Ml Unit SC 05/07/24 07:29 1 unit AC MASSIEL Administration Protocol Ondansetron HCl 4 mg 04/06/24 23:09 Ondansetron Inj 2 Mg/Ml Inj 2 Ml IV 05/06/24 23:08 Q6H PRN NAUSEA OR VOMITING Protocol Pantoprazole Sodium 40 mg 04/07/24 09:00 04/09/24 08:02 Pantoprazole 40 Mg Tablet PO 05/07/24 08:59 40 mg QDAY MASSIEL Administration Sennosides 1 tab 04/07/24 09:00 04/09/24 08:02 Senna Tablet PO 05/07/24 08:59 1 tab QDAY MASSIEL Administration Protocol Plan 74-year-old male with past medical history of HFrEF (25%), DM2, hypertension, and CAD s/p CABG was admitted to the hospital on 03/10/2024 due to acute hypoxic respiratory failure likely secondary to acute decompensated heart failure exacerbation. # Acute hypoxic respiratory failure likely secondary to #Acute decompensated heart failure exacerbation (HFrEF 25%) #Anasarca #NSTEMI likely type II ? Patient came in with lower extremity as well as upper extremity swelling as well as shortness of breath. ? Troponins peaked at 0.056 and down trended ? Elevated troponins likely in the setting of CHF exacerbation ? Echo showed EF of 25% as well as moderate to severe aortic stenosis and moderate aortic regurgitation ? Patient had total net balance of -1.8 L in last 24 hours ? Anasarca improving, but right upper extremity more swollen than the left ? Patient may go for heart cath tomorrow therefore place patient n.p.o. after midnight. Plan: ?Ordered ultrasound of right upper extremity to rule out DVT ? Will continue with Lasix 40 mg twice daily ? Started patient on carvedilol 3.125 twice daily - Will start ARB tomorrow if BP allows it ?Strict CHANEL's ? Daily weights ? Fluid restrictions ? Low-sodium diet ? Cardiology consulted, pursue recommendations #Aortic stenosis #CAD s/p CABG #Hyperlipidemia ?Continue aspirin 81 mg daily, atorvastatin 40 mg at bedtime, Plavix 75 mg daily #Hx of HTN ? Patient's blood pressure on the lower end, but MAP has been above 65 ? Continue carvedilol 3.125 twice daily and Lasix 40 mg twice daily #DM2 ? A1c 7.8 on 03/2024 Plan: ? ISS ? Accu-Cheks and hypoglycemia protocol ordered ? Will continue to monitor Disposition: Patient seen in med surg, pending heart cath prior to DC, continue diuresis for now and pending US doppler R UE. Diet: Cardiac, carb consistent, NPO midnight GI prophylaxis: protonix DVT prophylaxis: Heparin sc Code: Full code Case disclosed with Attending Dr. Gurvinder Garcia PGY1 Attending Provider Attestation/Addendum I have examined the patient, reviewed labs and imaging findings, discussed the case with the resident(s), and reviewed entered orders. I agree with the plan of care as outlined in this note, with these additional summaries/recommendations: Patient doing well today, net negative approximately 3 L. Patient noted to have persistent upper extremity swelling, right greater than left so Doppler ultrasound was obtained which showed SVT and right basilic vein. Holding off on anticoagulation at this time as cardiology plans for angiography in the morning. For now, continue with DVT prophylaxis and diuresis for CHF exacerbation. Patient may benefit from Entresto at the time of discharge. Edmundo Hollins MD
--- NOTE | 2024-04-09 15:28 | ESPR_ITS ---
RE: JALEESA BRIDGES : 1950 DATE OF SERVICE: 04/09/2024 SUBJECTIVE: The patient is a 74-year-old male with history of multivessel CAD, ischemic cardiomyopathy, chronic systolic heart failure, acutely decompensated heart failure with right-sided failure symptoms as well as shortness of breath, improved with IV diuretic. Also had moderate to severe calcific aortic stenosis, severe multivessel CAD and last angiogram nearly 5 years ago. The patient is feeling a little better. He does not complain of any chest pain, orthopnea or PND. His lab data is unremarkable. His troponin levels were slightly elevated, but BNP was also elevated initially. Creatinine is 1.2 and BUN 25. Tolerating diuretics well. CLINICAL EXAMINATION: Vital Signs: Blood pressure 100/60, pulse rate is 76, respirations 24, temperature normal, and saturation is 99% on 3 L nasal cannula. HEENT: Head is atraumatic. Neck: Supple. No JVD. Chest: Symmetrical. Lungs: Decreased breath sounds. No rales. Heart: S1 and S2 regular. S4 gallop. Abdomen: Thin and soft. Extremities: Mild edema. Genitourinary and Rectal: Not performed. Central Nervous System: Normal. ASSESSMENT: 1. The patient with acutely decompensated systolic heart failure, ejection fraction 25%. 2. Moderate to severe aortic stenosis. 3. Hypertension. 4. Chronic kidney disease stage II. RECOMMENDATIONS: Continue diuretic therapy. Scheduled for right and left heart cardiac catheterization and coronary angiogram tomorrow morning for further evaluation. DT: 14:45:44 TT: 15:26:00 Ref: [id number] - TID: [id number]
[2024-04-09] MEDS: ATORVASTATIN CALCIUM 20 MG TABLET 40 MG PO (23:17)
[2024-04-10] VITALS (24 sets, daily range): BP systolic 100–113; BP diastolic 51–68; PULSE 65–92; RESP 13–28; TEMP 36.1–36.9; O2SAT 92–99; BMI 29.3
--- NOTE | 2024-04-10 04:36 | PC.NURSE ---
seen and examined by Dr. Bustamante with at bedside. Radha franco as park interpreter.
[2024-04-10 05:45] LABS: Basophils % (Auto) 0 % (0-2.5); Eosinophils % (Auto) 0 % (0-10); Hematocrit 43.2 % (41.0-53.0); Hemoglobin 13.5 g/dL (13.5-16.0); Immature Granulocytes % (Auto) 0 % (0-0); Immature Granulocytes Auto 0.02 Thou/mm3 (0.00-0.00); Lymphocytes # (Auto) 1.5 Thou/mm3 (1.0-4.8); Lymphocytes % (Auto) 15 % (10-50); Mean Corpuscular HGB Conc 31.3 g/dl (31.0-37.0); Mean Corpuscular Hemoglobin 28.9 pg (25.0-35.0); Mean Corpuscular Volume 93 fL (80-100); Monocytes % (Auto) 10 % (0-12); Neutrophils # (Auto) 7.5 Thou/mm3 (1.8-7.7); Neutrophils % (Auto) 75 % (37-80); Nucleated Red Blood Cell % 0 /100 WBC (0); Platelet Count 206 Thou/mm3 (140-440); RDW Standard Deviation 53.9 fL (35.1-43.9); Red Blood Count 4.67 Miln/mm3 (4.50-5.90)
[2024-04-10] MEDS: FUROSEMIDE INJ 10 MG/ML 4ML VIAL 40 MG IVP (06:42)
[2024-04-10 06:55] LABS: Alanine Aminotransferase 31 U/L (10-49); Albumin, Serum 2.9 gm/dL (3.4-4.8); Alkaline Phosphatase 76 U/L (46-116); Anion Gap 7 (7-16); Aspartate Amino Transferase 30 U/L (0-34); BUN/Creatinine Ratio 28 Ratio (12-20); Bilirubin,Total 0.5 mg/dL (0.3-1.2); Blood Urea Nitrogen 33 mg/dL (9-23); Calcium 8.6 mg/dL (8.3-10.6); Calcium (Corrected) 9.5 mg/dL (8.5-10.1); Carbon Dioxide 39.2 mMol/L (20.0-31.0); Chloride 93 mMol/L (98-107); Creatinine (Component) 1.2 mg/dL (0.6-1.3); Estimated Creatinine Clearance 52.9 mL/min (>60); Glucose 199 mg/dL (74-106); Magnesium 1.9 mg/dL (1.6-2.6); Osmolality,Calculated 290 (275-295); Phosphorous 5.5 mg/dL (2.4-5.1); Potassium 4.5 mMol/L (3.4-5.1); Sodium 139 mMol/L (136-145); Total Protein 5.9 gm/dL (5.7-8.2); eGFR > 60 See Note
[2024-04-10] MEDS: INSULIN LISPRO (AdmeLOG) 1 UNIT/0.01 ML UNIT SC (08:45)
[2024-04-10] MEDS: CLOPIDOGREL BISULFATE 75 MG TABLET PO (08:46)
[2024-04-10] MEDS: carVEDILOL 3.125 MG TABLET PO (08:46)
[2024-04-10] MEDS: SENNA TABLET 1 TAB PO (08:46)
[2024-04-10] MEDS: PANTOPRAZOLE 40 MG TABLET PO (08:46)
[2024-04-10] MEDS: ASPIRIN EC 81 MG TABEC PO (08:47)
--- NOTE | 2024-04-10 09:42 | CHAP ---
Patient expressed gratitude for prayer and visit.
[2024-04-10 09:54] LABS: INR 1.4 (0.9-1.3); Partial Thromboplastin Time 32.6 Seconds (22.0-36.0); Prothrombin Time 15.4 Seconds (9.0-12.2)
--- NOTE | 2024-04-10 12:58 | PC.NURSE ---
1258 patient is sleepy and arousable with shallow breathing, patient encouraged to take deep breaths. s/p LHC and RHC done by Dr. Gar, dresssing to right groin dry with no bleeding or hematoma. TR band present to right wrist, no bleeding or hematoma noted to right wrist. Report received from Sandi JORDAN, patient to recover in lab technician and go back to room 380 after TR band removal. Romazicon given in lab technician OR, will monitor patient. lasix given in lab technician OR, Urinary catheter present and drained 750ml on arrival to lab technician recovery.
[2024-04-10 14:15] LABS: O2 Saturation (Cath Lab) 56 % (91-98); Puncture Site Pulmonary Artery
--- NOTE | 2024-04-10 14:57 | ESOP_ITS ---
RE: JALEESA BRIDGES : 1950 PROCEDURE PERFORMED: 1. Diagnostic right and left heart cardiac catheterization, selective coronary angiogram, left ventricular angiogram, CPT 63901. 2. Conscious sedation 30 minutes duration. 3. Ultrasound guided access of the right radial artery and femoral vein. DIAGNOSES: Moderate to severe stenosis, severe cardiomyopathy, congestive heart failure, non-ST segment elevation myocardial infarction. HISTORY AND INDICATIONS: The patient is a 74-year-old male with history of ischemic heart disease, status post myocardial infarction, cardiomyopathy, congestive heart failure, hypertension, diabetes, admitted to the hospital three days ago with severe shortness of breath, chest tightness, and worsening right heart failure, swelling of both lower extremities, orthopnea, or paroxysmal nocturnal dyspnea and chest discomfort. Cardiac echo shows severe LV dysfunction, EF 25%. There is evidence of global hypokinesis and moderate to severe aortic stenosis. Aortic velocity is 3.5 meters per second. The patient was recommended cardiac catheterization, right and left heart cardiac coronary angiogram for assessment of coronary artery disease, aortic stenosis, and heart failure. DESCRIPTION OF PROCEDURE: The patient was brought to cardiac catheterization laboratory. Conscious sedation was given 0.5 mg of Versed and 25 mcg of fentanyl. I had to reverse the sedation because the patient was not saturating well with 0.1 mg _Romazicon_ the right radial artery cannula to be maximized technique. Five ultrasound guidance used were. A 6- [place] sheath was introduced. Right femoral vein is cannulated by ultrasound guidance and 7- [place] sheath was introduced. Right heart catheterization performed by [place]-Wilian catheter. Right heart pressures were measured. Subsequently, left heart catheterization was performed by an AL1 5-[place] diagnostic catheter and stiff straight glidewire. Left ventricular pressure measured measured. Subsequently, left ventricular angiogram performed. Selective right and left coronary angiogram performed by TIG-4 diagnostic catheter and multiple views obtained. The patient tolerated the procedure without complications. Cardiac catheterization showed following findings: Hemodynamics, right atrial pressure is elevated at 20 mmHg. Pulmonary artery pressure is elevated at 63/28 and mean 35 mmHg. Pulmonary wedge space 24 mmHg. RV pressure is also 63, EDP is 21. Left ventricular pressure is 116/8, EDP is 21 mmHg, aortic pain 101/59 mmHg. There is a gradient of 20 mmHg across the aortic valve. Mean gradient was only 12 mmHg. Cardiac output is 3.4 L/min. Aortic valve is 1.2 square centimeters _ show moderate to severe calcific aortic stenosis, low gradient stenosis. Left ventricular angiogram showed severe global hypokinesis. Ejection fraction of approximately 25%. Coronary angiogram showed following findings. Right coronary artery is large and dominant, showed totally occluded proximal at origin distal RCA fills via collaterals. Left coronary artery system; left main coronary artery is normal. Left anterior descending artery showed evidence of 80% to 90% stenosis of the proximal LAD just before the septal analysis lead. Septal branch is fairly large, has moderate stenosis in the beginning. Mid LAD showed moderate diffuse disease. Distal LAD showed severe 70% diffuse stenosis. Not a good target for bypass surgery. Diagonal branch showed moderate disease as well. Ramus intermedius was a good vessel, showed evidence of a 70% stenosis. Circumflex artery is gives off OM branch and another posterior lateral branch showed evidence of moderate 70% stenosis. SUMMARY OF FINDINGS: 1. Moderate to severe calcific aortic stenosis, low flow, low-grade and severe aortic stenosis. 2. Severe LV dysfunction ischemic cardiomyopathy. Ejection fraction is 25%. 3. Severe multivessel CAD, chronic occlusion of RCA with collaterals from left coroanry system and severe stenosis of proximal LAD with diffuse distal LAD stenosis, not a good target for bypass surgery. Moderate to severe stenosis of ramus intermedius and circumflex artery. No good target for revascularization. RECOMMENDATIONS: The patient is recommended to maximum medical management, aggressive diuretic therapy, furosemide, spironolactone, and possibly Entresto. The patient's prognosis is extremely poor. The patient is not a good candidate for surgery. recommend [facility] medical management. PA pressures are elevated. Group 2 pulmonary hypertension. PA pressure is 63/20 mmHg. Bench pressure is also elevated at 24, hence, he will need aggressive diuretic therapy for another one to two days before discharge home. DT: 12:57:44 TT: 14:56:00 Ref: [id number] - TID: [id number] MTDD
--- NOTE | 2024-04-10 15:21 | PC.NURSE ---
TR band removed at 1505, no bleeding or hematoma noted to right wrist, report given to Raphael JORDAN, will get patient ready to go back to room 380
--- NOTE | 2024-04-10 15:40 | PC.NURSE ---
1540 patient is alert,arousable to name, able to follow commands and go back to sleep. able to tolerate jello with no nausea or vomiting, dressing to right wrist and right groin dry with no bleeding or hematoma. report has been given to Raphael JORDAN, patient transferred back to room 380 with tele box accompanied by .
--- NOTE | 2024-04-10 16:04 | ESPR_ITS ---
<Statement entered by Dayna Louie MD - 04/10/24 18:09> I discussed with and supervised my co-resident involved in the care of this patient. I agree with the assessment and plan as documented above. Patient UOP 2L, net negative 1L. Cardiology Dr. Gar following, patient to go to lab aide today for RH and LH cath. Will follow up on final operative report and cardiology recommendations for medical management. Dayna Louie MD PGY-3 Documentation for date of: 04/10/24 Subjective Subjective Interval history: Patient was seen at bedside this morning. No overnight events. Patient was going to have heart catheterization this morning by cardiology. On ultrasound Doppler of right upper extremity yesterday was found that the patient had a superficial vein thrombosis, but anticoagulation will be held due to patient going for heart cath today. Patient was -1.2 L in the past 24 hours. Will await for cardiology recommendations. Exam Vital Signs Temp Pulse Resp BP Pulse Ox O2 Del Method O2 Flow Rate 98.3 F 65 21 H 111/65 99 Nasal Cannula 4 04/10/24 15:30 04/10/24 15:30 04/10/24 15:30 04/10/24 15:30 04/10/24 15:30 04/10/24 15:30 04/10/24 15:30 FiO2 83 04/09/24 16:00 Narrative Exam General: A/O x3, no acute distress Eyes: PERRL, EOMI. Anicteric, vision grossly intact. Ears: No ear pain, no ear discharge, Hearing grossly intact. Nose: No nasal discharge. Mouth/Throat: Dry mucous membranes, no redness, no lesions. Neck: Neck supple, non-tender, no cervical lymphadenopathy. Lungs: Decreased breath sounds STEPHANIE, No accessory muscle use. Cardio: Normal S1/S2, regular rhythm, systolic ejection murmur, no JVD Abdomen: Soft, non-tender, no palpable masses, peristalsis present, no guarding or rebound. Extremities: Symmetrical, no significant deformities, 2+ edema STEPHANIE LE upto lower thigh, 1+ L UE edema, 1+ R UE edema, but soft , non-tender, peripheral pulses presents. Skin: No rashes, no lesions, warm to touch. Neuro: No focal neurological deficits. motor and sensory intact Psych: Cooperative, appropriate mood and effect. Objective Labs 04/11/24 04:20 04/11/24 04:20 Labs: Laboratory Results - last 24 hr 04/10/24 04/10/24 04/10/24 04:27 04:48 12:23 WBC 10.0 RBC 4.67 Hgb 13.5 Hct 43.2 MCV 93 MCH 28.9 MCHC 31.3 RDW Std Deviation 53.9 H Plt Count 206 Neut % (Auto) 75 Lymph % (Auto) 15 [place] % (Auto) 10 Eos % (Auto) 0 Baso % (Auto) 0 Neut # (Auto) 7.5 Lymph # (Auto) 1.5 [place] # (Auto) 1.0 H Eos # (Auto) 0.0 Baso # (Auto) 0.0 Immature Gran # (Auto) 0.02 H Absolute Nucleated RBC 0.00 Immature Gran % 0 Nucleated RBC % 0 PT 15.4 H D INR 1.4 H APTT 32.6 POC Blood Site Pulmonary Artery POC O2 Saturation 56 L Sodium 139 Potassium 4.5 D Chloride 93 L Carbon Dioxide 39.2 H Anion Gap 7 BUN 33 H Creatinine 1.2 Estim Creat Clear Calc 52.9 L eGFR > 60 BUN/Creatinine Ratio 28 H Glucose 199 H Calculated Osmolality 290 Calcium 8.6 Corrected Calcium 9.5 Phosphorus 5.5 H Magnesium 1.9 Total Bilirubin 0.5 AST 30 ALT 31 Alkaline Phosphatase 76 Total Protein 5.9 Albumin 2.9 L Globulin 3.0 Albumin/Globulin Ratio 1.0 L Quality Measures Quality Measures none Advance care planning discussed with:: patient and spouse Assessment & Plan Assessment Current Active Medications: Generic Name Dose Route Start Last Admin Trade Name Obed PRN Reason Stop Dose Admin Acetaminophen 650 mg 04/07/24 14:09 Acetaminophen 325 Mg Tablet PO 05/06/24 23:08 Q6H PRN Fever >100.3 or pain 1-3 Hydrocodone Bitart/Acetaminophen 1 tab 04/06/24 23:09 Hydrocodone/Apap 5/325 Tablet PO 04/11/24 23:08 Q4HR PRN PAIN SCALE 4-10(Mod-Sev Albuterol/Ipratropium 3 ml 04/06/24 23:09 04/09/24 00:06 Albuterol/Ipratropium (Duoneb) Rt Margaret 3 Ml Nebu INH 05/06/24 23:08 3 ml Q2HR PRN Administration SHORTNESS OF BREATH OR WHEEZE Aspirin 81 mg 04/07/24 09:00 04/10/24 08:47 Aspirin Ec 81 Mg Tabec PO 05/07/24 08:59 81 mg QDAY MASSIEL Administration Atorvastatin Calcium 40 mg 04/07/24 21:00 04/09/24 23:17 Atorvastatin Calcium 20 Mg Tablet PO 05/07/24 20:59 40 mg HS MASSIEL Administration Carvedilol 3.125 mg 04/09/24 08:25 04/10/24 08:46 Carvedilol 3.125 Mg Tablet PO 05/09/24 08:24 3.125 mg BIDWM MASSIEL Administration Clopidogrel Bisulfate 75 mg 04/07/24 09:00 04/10/24 08:46 Clopidogrel Bisulfate 75 Mg Tablet PO 05/07/24 08:59 75 mg QDAY MASSIEL Administration Dextrose 50 ml 04/06/24 23:19 Dextrose 50%-Water Inj 50 Ml Syringe IV 05/06/24 23:18 Q15MIN PRN BG <50 OR BG <70 & pt unresponsive Furosemide 40 mg 04/07/24 06:00 04/10/24 06:42 Furosemide Inj 10 Mg/Ml 4ml Vial IVP 05/07/24 05:59 40 mg BIDD MASSIEL Administration Glucagon 1 mg 04/07/24 15:00 Glucagon Inj 1 Mg Vial IM Q15MIN PRN BG <70, and no IV access Insulin Human Lispro 0 unit 04/07/24 15:01 04/10/24 08:45 Insulin Lispro (Admelog) 1 Unit/0.01 Ml Unit SC 05/07/24 07:29 1 unit AC MASSIEL Administration Protocol Ondansetron HCl 4 mg 04/06/24 23:09 Ondansetron Inj 2 Mg/Ml Inj 2 Ml IV 05/06/24 23:08 Q6H PRN NAUSEA OR VOMITING Protocol Pantoprazole Sodium 40 mg 04/07/24 09:00 04/10/24 08:46 Pantoprazole 40 Mg Tablet PO 05/07/24 08:59 40 mg QDAY MASSIEL Administration Sennosides 1 tab 04/07/24 09:00 04/10/24 08:46 Senna Tablet PO 05/07/24 08:59 1 tab QDAY MASSIEL Administration Protocol Plan 74-year-old male with past medical history of HFrEF (25%), DM2, hypertension, and CAD s/p CABG was admitted to the hospital on 03/10/2024 due to acute hypoxic respiratory failure likely secondary to acute decompensated heart failure exacerbation. # Acute hypoxic respiratory failure likely secondary to #Acute decompensated heart failure exacerbation (HFrEF 25%) #Anasarca #NSTEMI likely type II ? Patient came in with lower extremity as well as upper extremity swelling as well as shortness of breath. ? Troponins peaked at 0.056 and down trended ? Elevated troponins likely in the setting of CHF exacerbation ? Echo showed EF of 25% as well as moderate to severe aortic stenosis and moderate aortic regurgitation ? Patient had total net balance of -1.8 L in last 24 hours ? Anasarca improving, but right upper extremity more swollen than the left ? Patient going for heart cath today Plan: ? Will continue with Lasix 40 mg twice daily ? Continue patient on carvedilol 3.125 twice daily - Will consider starting ARB if BP allows ? Strict CHANEL's ? Daily weights ? Fluid restrictions ? Low-sodium diet ? Cardiology consulted, pursue recommendations #Superficial vein thrombosis ? Patient yesterday had an 2+ swelling of the right upper extremity, but was soft. ? Ultrasound venous Doppler of right upper extremity shows superficial vein thrombosis Plan: ?Will hold off anticoagulation at this time given patient going for heart cath today. ?Will follow-up with cardiology as she started patient on anticoagulation. #Aortic stenosis #CAD s/p CABG #Hyperlipidemia ?Continue aspirin 81 mg daily, atorvastatin 40 mg at bedtime, Plavix 75 mg daily #Hx of HTN ? Patient's blood pressure on the lower end, but MAP has been above 65 ? Continue carvedilol 3.125 twice daily and Lasix 40 mg twice daily #DM2 ? A1c 7.8 on 03/2024 Plan: ? ISS ? Accu-Cheks and hypoglycemia protocol ordered ? Will continue to monitor Disposition: Patient seen in med surg, heart cath today, continue diuresis for now. Diet: NPO GI prophylaxis: protonix DVT prophylaxis: Heparin sc Code: Full code Case disclosed with Attending Dr. Lara and my senior Dr. Louie PGY3 Kyle Garcia PGY1 Attending Provider Attestation/Addendum Face to face evaluation was performed by me. I have personally seen and examined the patient. I discussed the assessment and plan with the entire medicine team. I reviewed available medical records, imaging studies, laboratory results. I agree with the above subjective data, objective findings, assessment and plan except as corrected by me or noted below Acute hypoxic respiratory failure, due to below acute on chronic systolic HF exacerbation NSTEMI, likely type 2 due to above LHC per Carido, continue with iv diuresis GDMT as hemodynamics allow
--- NOTE | 2024-04-10 19:05 | PC.NURSE ---
Rn educated the pt and family on importance of remaining NPO until the pt can pass a swallow screen. Pt is very lethargic at this time. pt failed nurse bedside swallow screen. MD aware. MD ordered to keep pt NPO. MD to reassess in the AM
[2024-04-10] MEDS: SACUBITRIL 24 MG/VALSARTAN 26 MG TABLET 1 TAB PO (21:41)
[2024-04-10] MEDS: ATORVASTATIN CALCIUM 20 MG TABLET 40 MG PO (21:42)
[2024-04-10] MEDS: SPIRONOLACTONE 25 MG TABLET PO (21:42)
--- NOTE | 2024-04-10 23:02 | PC.NURSE ---
98% O2 sat on 4L/min/nc- Decreased to 2L/min/nc.
[2024-04-11] VITALS (13 sets, daily range): BP systolic 71–92; BP diastolic 42–53; PULSE 58–93; RESP 12–20; TEMP 36.1–37.1; O2SAT 93–100
--- NOTE | 2024-04-11 03:57 | PC.NURSE ---
91% O2 sat on 2L/min/nc- Increased to 3L/nc.
--- NOTE | 2024-04-11 04:12 | PC.NURSE ---
CEN[employer]AL SUPPLY CLERK called for bp=67/41. at bedside.
[2024-04-11] MEDS: ALBUMIN HUMAN 25% IVPB 25 GM/100 ML BTL IV ×2 (04:19→08:08)
[2024-04-11] MEDS: SODIUM CHLORIDE 0.9% 250 ML 250 ML 999 ML IV ×2 (04:19→04:35)
[2024-04-11 04:31] LABS: Lactate (Lactic Acid) 1.3 mMol/L (0.4-2.0)
[2024-04-11 04:36] LABS: Basophils # (Auto) 0.1 Thou/mm3 (0.0-0.2); Basophils % (Auto) 1 % (0-2.5); Eosinophils % (Auto) 0 % (0-10); Hematocrit 37.7 % (41.0-53.0); Hemoglobin 11.9 g/dL (13.5-16.0); Immature Granulocytes % (Auto) 0 % (0-0); Immature Granulocytes Auto 0.02 Thou/mm3 (0.00-0.00); Lymphocytes # (Auto) 1.2 Thou/mm3 (1.0-4.8); Lymphocytes % (Auto) 15 % (10-50); Mean Corpuscular HGB Conc 31.6 g/dl (31.0-37.0); Mean Corpuscular Hemoglobin 29.4 pg (25.0-35.0); Mean Corpuscular Volume 93 fL (80-100); Monocytes # (Auto) 0.9 Thou/mm3 (0.0-0.8); Monocytes % (Auto) 11 % (0-12); Neutrophils # (Auto) 5.5 Thou/mm3 (1.8-7.7); Neutrophils % (Auto) 72 % (37-80); Nucleated Red Blood Cell % 0 /100 WBC (0); Platelet Count 222 Thou/mm3 (140-440); RDW Standard Deviation 53.8 fL (35.1-43.9); Red Blood Count 4.05 Miln/mm3 (4.50-5.90); White Blood Count 7.6 Thou/mm3 (3.8-10.6)
--- NOTE | 2024-04-11 04:45 | PC.NURSE ---
at bedside. Radha franco as general intern. Dr. Samuel, Dr Bustamante, Dr. Mulligan at bedside.
--- NOTE | 2024-04-11 04:55 | PC.NURSE ---
transferred to telemetry room 273 per bed with O2 inh on at 4L/min/nc .Saline lock iv. at bedside.
--- NOTE | 2024-04-11 05:00 | PD.RESEVENT ---
Documentation for date of: 04/11/24 Event Note Event Note: Around 4:00AM, RR was called as patient found to have worsening BP 60s/40s (MAP 51), HR 90s, otherwise vitals table. Patient was also fatigued and slighted confused. On arrival he was A&O x2, otherwise clinically stable. CBC without significant changes. CMP showed ANDREA with CR 1.5, lactic acid was normal. We have ALBUMIN 25 mg X1 and 500 cc NS bolus. We held diuretics, anti-hypertensives and beta-blockers. Cardiology, Dr. Gar, recommended monitoring and no further fluids. MAP improved to 59. Patient remained stable. Mentation improved. We upgraded to tele. Patient case was discussed with attending, Sarahi Mulligan MD. PGYI
[2024-04-11 05:02] LABS: Alanine Aminotransferase 20 U/L (10-49); Albumin, Serum 2.5 gm/dL (3.4-4.8); Alkaline Phosphatase 56 U/L (46-116); Anion Gap 5 (7-16); Aspartate Amino Transferase 24 U/L (0-34); BUN/Creatinine Ratio 25 Ratio (12-20); Bilirubin,Total 0.4 mg/dL (0.3-1.2); Blood Urea Nitrogen 37 mg/dL (9-23); Calcium 8.4 mg/dL (8.3-10.6); Calcium (Corrected) 9.6 mg/dL (8.5-10.1); Chloride 96 mMol/L (98-107); Creatinine (Component) 1.5 mg/dL (0.6-1.3); Estimated Creatinine Clearance 42.3 mL/min (>60); Globulin 2.5 gm/dL (2.3-3.5); Glucose 194 mg/dL (74-106); Osmolality,Calculated 293 (275-295); Potassium 4.7 mMol/L (3.4-5.1); Sodium 140 mMol/L (136-145); eGFR 48 See Note
[2024-04-11] MEDS: INSULIN LISPRO (AdmeLOG) 1 UNIT/0.01 ML UNIT SC ×3 (07:32→16:52)
[2024-04-11] MEDS: PANTOPRAZOLE 40 MG TABLET PO (08:06)
[2024-04-11] MEDS: SENNA TABLET 1 TAB PO (08:06)
[2024-04-11] MEDS: ASPIRIN EC 81 MG TABEC PO (08:06)
[2024-04-11] MEDS: CLOPIDOGREL BISULFATE 75 MG TABLET PO (08:06)
--- NOTE | 2024-04-11 13:31 | ESPR_ITS ---
<Statement entered by Dayna Louie MD - 04/11/24 18:24> I discussed with and supervised my co-resident involved in the care of this patient. I agree with the assessment and plan as documented above. Patient seen and examined at bedside. Rapid response called overnight for hypotension. On 5L NC, saturating 96%. Holding all hypertension meds, BP remains high 80s/50s. Patient alert, awake, mentating. Cardiology following. Dayna Louie MD PGY-3 Documentation for date of: 04/11/24 Subjective Subjective Interval history: Patient was seen at bedside this morning. Overnight patient had a rapid response called due to hypotension where his MAP was less than 60. At this time he was given a 500 cc of normal saline bolus as well as albumin 25 mg x 1. All his antihypertensive medications including beta-blockers as well as diuretics were held at this time and will be held until cardiology gives the approval to continue them. This morning patient was doing well, was sleeping in bed without any complaints. Exam Vital Signs Temp Pulse Resp BP Pulse Ox O2 Del Method O2 Flow Rate 97.0 F 72 18 82/49 L 96 Nasal Cannula 6 04/11/24 12:00 04/11/24 12:00 04/11/24 12:00 04/11/24 12:00 04/11/24 12:00 04/11/24 12:00 04/11/24 12:00 FiO2 83 04/11/24 08:00 Narrative Exam General: A/O x3, no acute distress Eyes: PERRL, EOMI. Anicteric, vision grossly intact. Ears: No ear pain, no ear discharge, Hearing grossly intact. Nose: No nasal discharge. Mouth/Throat: Dry mucous membranes, no redness, no lesions. Neck: Neck supple, non-tender, no cervical lymphadenopathy. Lungs: Decreased breath sounds STEPHANIE, No accessory muscle use. Cardio: Normal S1/S2, regular rhythm, systolic ejection murmur, no JVD Abdomen: Soft, non-tender, no palpable masses, peristalsis present, no guarding or rebound. Extremities: Symmetrical, no significant deformities, 2+ edema STEPHANIE LE upto lower lateral thigh, 1+ L UE edema, 2+ R UE edema, but soft , non-tender, peripheral pulses presents. Skin: No rashes, no lesions, warm to touch. Neuro: No focal neurological deficits. motor and sensory intact Psych: Cooperative, appropriate mood and effect. Objective Labs 04/11/24 04:20 04/11/24 04:20 Labs: Laboratory Results - last 24 hr 04/10/24 04/11/24 12:23 04:20 WBC 7.6 RBC 4.05 L Hgb 11.9 L Hct 37.7 L MCV 93 MCH 29.4 MCHC 31.6 RDW Std Deviation 53.8 H Plt Count 222 Neut % (Auto) 72 Lymph % (Auto) 15 [place] % (Auto) 11 Eos % (Auto) 0 Baso % (Auto) 1 Neut # (Auto) 5.5 Lymph # (Auto) 1.2 [place] # (Auto) 0.9 H Eos # (Auto) 0.0 Baso # (Auto) 0.1 Immature Gran # (Auto) 0.02 H Absolute Nucleated RBC 0.00 Immature Gran % 0 Nucleated RBC % 0 POC Blood Site Pulmonary Artery POC O2 Saturation 56 L Sodium 140 Potassium 4.7 Chloride 96 L Carbon Dioxide 39.0 H Anion Gap 5 L BUN 37 H Creatinine 1.5 H Estim Creat Clear Calc 42.3 L eGFR 48 L BUN/Creatinine Ratio 25 H Glucose 194 H Calculated Osmolality 293 Lactic Acid 1.3 Calcium 8.4 Corrected Calcium 9.6 Total Bilirubin 0.4 AST 24 ALT 20 Alkaline Phosphatase 56 D Total Protein 5.0 L Albumin 2.5 L Globulin 2.5 Albumin/Globulin Ratio 1.0 L Quality Measures Quality Measures none Advance care planning discussed with:: patient, spouse and child Assessment & Plan Assessment Current Active Medications: Generic Name Dose Route Start Last Admin Trade Name Obed PRN Reason Stop Dose Admin Acetaminophen 650 mg 04/07/24 14:09 Acetaminophen 325 Mg Tablet PO 05/06/24 23:08 Q6H PRN Fever >100.3 or pain 1-3 Hydrocodone Bitart/Acetaminophen 1 tab 04/06/24 23:09 Hydrocodone/Apap 5/325 Tablet PO 04/11/24 23:08 Q4HR PRN PAIN SCALE 4-10(Mod-Sev Albuterol/Ipratropium 3 ml 04/06/24 23:09 04/09/24 00:06 Albuterol/Ipratropium (Duoneb) Rt Margaret 3 Ml Nebu INH 05/06/24 23:08 3 ml Q2HR PRN Administration SHORTNESS OF BREATH OR WHEEZE Aspirin 81 mg 04/07/24 09:00 04/11/24 08:06 Aspirin Ec 81 Mg Tabec PO 05/07/24 08:59 81 mg QDAY MASSIEL Administration Atorvastatin Calcium 40 mg 04/07/24 21:00 04/10/24 21:42 Atorvastatin Calcium 20 Mg Tablet PO 05/07/24 20:59 40 mg HS MASSIEL Administration Carvedilol 3.125 mg 04/09/24 08:25 04/10/24 18:09 Carvedilol 3.125 Mg Tablet PO 05/09/24 08:24 Not Given BIDWM MASSIEL Clopidogrel Bisulfate 75 mg 04/07/24 09:00 04/11/24 08:06 Clopidogrel Bisulfate 75 Mg Tablet PO 05/07/24 08:59 75 mg QDAY MASSIEL Administration Dextrose 50 ml 04/06/24 23:19 Dextrose 50%-Water Inj 50 Ml Syringe IV 05/06/24 23:18 Q15MIN PRN BG <50 OR BG <70 & pt unresponsive Furosemide 40 mg 04/11/24 09:00 Furosemide Inj 10 Mg/Ml 4ml Vial IVP 05/11/24 08:59 QDAY MASSIEL Glucagon 1 mg 04/07/24 15:00 Glucagon Inj 1 Mg Vial IM Q15MIN PRN BG <70, and no IV access Insulin Human Lispro 0 unit 04/07/24 15:01 04/11/24 11:11 Insulin Lispro (Admelog) 1 Unit/0.01 Ml Unit SC 05/07/24 07:29 1 unit AC MASSIEL Administration Protocol Ondansetron HCl 4 mg 04/06/24 23:09 Ondansetron Inj 2 Mg/Ml Inj 2 Ml IV 05/06/24 23:08 Q6H PRN NAUSEA OR VOMITING Protocol Pantoprazole Sodium 40 mg 04/07/24 09:00 04/11/24 08:06 Pantoprazole 40 Mg Tablet PO 05/07/24 08:59 40 mg QDAY MASSIEL Administration Sacubitril/Valsartan 1 tab 04/10/24 21:00 04/10/24 21:41 Sacubitril 24 Mg/Valsartan 26 Mg Tablet PO 05/10/24 20:59 1 tab BID MASSIEL Administration Sennosides 1 tab 04/07/24 09:00 04/11/24 08:06 Senna Tablet PO 05/07/24 08:59 1 tab QDAY MASSIEL Administration Protocol Spironolactone 25 mg 04/10/24 21:00 04/11/24 07:53 Spironolactone 25 Mg Tablet PO 05/10/24 20:59 Not Given BID MASSIEL Plan 74-year-old male with past medical history of HFrEF (25%), DM2, hypertension, and CAD s/p CABG was admitted to the hospital on 03/10/2024 due to acute hypoxic respiratory failure likely secondary to acute decompensated heart failure exacerbation. # Acute hypoxic respiratory failure likely secondary to #Acute decompensated heart failure exacerbation (HFrEF 25%) #Anasarca #NSTEMI likely type II #Hypotension ? Patient came in with lower extremity as well as upper extremity swelling as well as shortness of breath. ? Troponins peaked at 0.056 and down trended ? Elevated troponins likely in the setting of CHF exacerbation ? Echo showed EF of 25% as well as moderate to severe aortic stenosis and moderate aortic regurgitation ? Patient had total net balance of -1.8 L in last 24 hours ? Anasarca improving, but right upper extremity more swollen than the left ?Patient had a very proximal called overnight due to low MAP and his blood pressure has been on the lower end 12 the whole day. Plan: ?Will hold all antihypertensive medication including diuretics at this time given low BP ? Strict CHANEL's ? Daily weights ? Fluid restrictions ? Low-sodium diet ? Cardiology consulted, pursue recommendations #Aortic stenosis #CAD s/p CABG #Hyperlipidemia #Multivessel CAD ?Patient had heart cath on 04/10/2024 I had the following findings: 1. Moderate to severe calcific aortic stenosis, low flow, low-grade and severe aortic stenosis. 2. Severe LV dysfunction ischemic cardiomyopathy. Ejection fraction is 25%. 3. Severe multivessel CAD, chronic occlusion of RCA with collaterals from left coroanry system and severe stenosis of proximal LAD with diffuse distal LAD stenosis, not a good target for bypass surgery. Moderate to severe stenosis of ramus intermedius and circumflex artery. No good target for revascularization. Plan: ?Continue aspirin 81 mg daily, atorvastatin 40 mg at bedtime, Plavix 75 mg daily #Superficial vein thrombosis ? Patient yesterday had an 2+ swelling of the right upper extremity, but was soft. ? Ultrasound venous Doppler of right upper extremity shows superficial vein thrombosis Plan: ?Will hold off anticoagulation at this time given patient going for heart cath today. ?Will follow-up with cardiology as she started patient on anticoagulation. #Hx of HTN ? Patient's blood pressure on the lower end, but MAP has been above 65 ? Hold carvedilol 3.125 twice daily and Lasix 40 mg twice daily #DM2 ? A1c 7.8 on 03/2024 Plan: ? ISS ? Accu-Cheks and hypoglycemia protocol ordered ? Will continue to monitor Disposition: Patient seen in med surg,holding BP meds and diuresis for now given low bp. Diet: carb low GI prophylaxis: protonix DVT prophylaxis: Heparin sc Code: Full code Case disclosed with Attending Dr. Lara and my senior Dr. Louie PGY3 Kyle Garcia PGY1 Attending Provider Attestation/Addendum Face to face evaluation was performed by me. I have personally seen and examined the patient. I discussed the assessment and plan with the entire medicine team. I reviewed available medical records, imaging studies, laboratory results. I agree with the above subjective data, objective findings, assessment and plan except as corrected by me or noted below Acute hypoxic respiratory failure, due to below acute on chronic systolic HF exacerbation NSTEMI, likely type 2 due to above Mutlivessel CAD, medical management per Cardiology LHC on 04/10/24 LHC sam 04/10/24 BP soft, holding iv lasix, spironolactone, entersto and low dose coreg, if BP imporved resume iV diuresis, then resume GDMT as tolerated, target systolic around 90-100 GDMT as hemodynamics allow
--- NOTE | 2024-04-11 14:34 | ESPR_ITS ---
<Statement entered by Judy Gar MD - 04/14/24 08:56> I personally examined the patient reviewed the history and and findings as documented by PGY 1 Dr. Oscar Hamilton agree with the treatment plan recommendation as documented patient continues to severe shortness of breath due to congestive heart failure HFrEF has multivessel coronary artery disease ischemic cardiomyopathy. The patient did have low blood pressure but not symptomatic did not want to give any extra IV fluids did receive some fluid last night but avoid any further fluids hold the medication temporarily. Documentation for date of: 04/11/24 Subjective Subjective Interval history: Overnight: Rapid response called due to hypotension with MAP of 51. Patient was given 0.5 L bolus normal saline and albumin, diuretics and GDMT held. Patient seen and examined at bedside. Patient resting comfortably, denies shortness of breath, chest pain, fatigue, weakness, lightheadedness. Notes continued lower extremity swelling. No signs of shock. Will give midodrine for low blood pressure and resume GDMT and diuretics. Avoid fluid boluses. Exam Vital Signs Temp Pulse Resp BP Pulse Ox O2 Del Method O2 Flow Rate 97.0 F 72 18 82/49 L 96 Nasal Cannula 6 04/11/24 12:00 04/11/24 12:00 04/11/24 12:00 04/11/24 12:00 04/11/24 12:00 04/11/24 12:00 04/11/24 12:00 FiO2 83 04/11/24 08:00 Narrative Exam PE: Gen: Well-developed and well-nourished. HEENT: NCAT, PERRLA, EOMI, MMM, anicteric conjunctivae. CVS: normal S1 and S2. RRR. Soft systolic murmur in aortic valve region. Heart sounds diminished. Resp: CTA B/L. No rhonchi, rales, crackles or wheezing. Abd: soft, non-tender, non-distended. MSK: Good ROM in BUE & BLE. No rash. 2+ pitting edema bilateral lower extremities. Neuro: CN II-XII grossly intact. Strength 5/5 in BUE & BLE. Alert and oriented x3. Psych: appropriate mood and affect. Objective Labs 04/11/24 04:20 04/11/24 04:20 Labs: Laboratory Results - last 24 hr 04/11/24 04:20 WBC 7.6 RBC 4.05 L Hgb 11.9 L Hct 37.7 L MCV 93 MCH 29.4 MCHC 31.6 RDW Std Deviation 53.8 H Plt Count 222 Neut % (Auto) 72 Lymph % (Auto) 15 [place] % (Auto) 11 Eos % (Auto) 0 Baso % (Auto) 1 Neut # (Auto) 5.5 Lymph # (Auto) 1.2 [place] # (Auto) 0.9 H Eos # (Auto) 0.0 Baso # (Auto) 0.1 Immature Gran # (Auto) 0.02 H Absolute Nucleated RBC 0.00 Immature Gran % 0 Nucleated RBC % 0 Sodium 140 Potassium 4.7 Chloride 96 L Carbon Dioxide 39.0 H Anion Gap 5 L BUN 37 H Creatinine 1.5 H Estim Creat Clear Calc 42.3 L eGFR 48 L BUN/Creatinine Ratio 25 H Glucose 194 H Calculated Osmolality 293 Lactic Acid 1.3 Calcium 8.4 Corrected Calcium 9.6 Total Bilirubin 0.4 AST 24 ALT 20 Alkaline Phosphatase 56 D Total Protein 5.0 L Albumin 2.5 L Globulin 2.5 Albumin/Globulin Ratio 1.0 L Quality Measures Quality Measures none Advance care planning discussed with:: patient and child Assessment & Plan Assessment Current Active Medications: Generic Name Dose Route Start Last Admin Trade Name Freq PRN Reason Stop Dose Admin Acetaminophen 650 mg 04/07/24 14:09 Acetaminophen 325 Mg Tablet PO 05/06/24 23:08 Q6H PRN Fever >100.3 or pain 1-3 Hydrocodone Bitart/Acetaminophen 1 tab 04/06/24 23:09 Hydrocodone/Apap 5/325 Tablet PO 04/11/24 23:08 Q4HR PRN PAIN SCALE 4-10(Mod-Sev Albuterol/Ipratropium 3 ml 04/06/24 23:09 04/09/24 00:06 Albuterol/Ipratropium (Duoneb) Rt Margaret 3 Ml Nebu INH 05/06/24 23:08 3 ml Q2HR PRN Administration SHORTNESS OF BREATH OR WHEEZE Aspirin 81 mg 04/07/24 09:00 04/11/24 08:06 Aspirin Ec 81 Mg Tabec PO 05/07/24 08:59 81 mg QDAY MASSIEL Administration Atorvastatin Calcium 40 mg 04/07/24 21:00 04/10/24 21:42 Atorvastatin Calcium 20 Mg Tablet PO 05/07/24 20:59 40 mg HS MASSIEL Administration Carvedilol 3.125 mg 04/09/24 08:25 04/10/24 18:09 Carvedilol 3.125 Mg Tablet PO 05/09/24 08:24 Not Given BIDWM MASSIEL Clopidogrel Bisulfate 75 mg 04/07/24 09:00 04/11/24 08:06 Clopidogrel Bisulfate 75 Mg Tablet PO 05/07/24 08:59 75 mg QDAY MASSIEL Administration Dextrose 50 ml 04/06/24 23:19 Dextrose 50%-Water Inj 50 Ml Syringe IV 05/06/24 23:18 Q15MIN PRN BG <50 OR BG <70 & pt unresponsive Furosemide 40 mg 04/11/24 09:00 Furosemide Inj 10 Mg/Ml 4ml Vial IVP 05/11/24 08:59 QDAY MASSIEL Glucagon 1 mg 04/07/24 15:00 Glucagon Inj 1 Mg Vial IM Q15MIN PRN BG <70, and no IV access Insulin Human Lispro 0 unit 04/07/24 15:01 04/11/24 11:11 Insulin Lispro (Admelog) 1 Unit/0.01 Ml Unit SC 05/07/24 07:29 1 unit AC MASSIEL Administration Protocol Ondansetron HCl 4 mg 04/06/24 23:09 Ondansetron Inj 2 Mg/Ml Inj 2 Ml IV 05/06/24 23:08 Q6H PRN NAUSEA OR VOMITING Protocol Pantoprazole Sodium 40 mg 04/07/24 09:00 04/11/24 08:06 Pantoprazole 40 Mg Tablet PO 05/07/24 08:59 40 mg QDAY MASSIEL Administration Sacubitril/Valsartan 1 tab 04/10/24 21:00 04/10/24 21:41 Sacubitril 24 Mg/Valsartan 26 Mg Tablet PO 05/10/24 20:59 1 tab BID MASSIEL Administration Sennosides 1 tab 04/07/24 09:00 04/11/24 08:06 Senna Tablet PO 05/07/24 08:59 1 tab QDAY MASSIEL Administration Protocol Spironolactone 25 mg 04/10/24 21:00 04/11/24 07:53 Spironolactone 25 Mg Tablet PO 05/10/24 20:59 Not Given BID MASSIEL Plan 74-year-old male with past medical history of HFrEF (25%), DM2, hypertension, and CAD s/p CABG was admitted to the hospital on 03/10/2024 due to acute hypoxic respiratory failure likely secondary to acute decompensated heart failure exacerbation. #Acute hypoxic respiratory failure secondary to #Acute decompensated heart failure exacerbation (HFrEF 25%) #Anasarca #NSTEMI type II Patient came in with lower extremity as well as upper extremity swelling as well as shortness of breath. Troponins peaked at 0.056 and down trended, likely due to CHF exacerbation. Echo showed EF of 25% as well as moderate to severe aortic stenosis and moderate aortic regurgitation. Patient received heart cath which showed 25% ejection fraction, severe aortic stenosis, severe multivessel coronary artery disease without good revascularization target. Significant grade 2 pulmonary arterial hypertension with a increased right ventricular pressure and pulmonary wedge pressure. Patient was hypotensive, asymptomatic, received 0.5 L bolus NS and albumin. Poor candidate for surgery or revascularizaton, continue with aggressive medical management and GDMT. -Lasix 40 mg IV twice daily -Carvedilol 3.125 mg PO twice daily -Entresto 1 tab p.o. twice daily -Strict CHANEL's -Daily weights -Fluid restrictions 1500 cc -Low-sodium diet -Goal MAP 60 or greater, avoid IVF -Midodrine 5mg PO BID #Contraction alkalosis Patient developed contraction alkalosis in setting of IV diuretics. Serum bicarb increased to 39.2. -Spironolactone 25 mg p.o. twice daily #Aortic stenosis #CAD s/p CABG #Hyperlipidemia -Continue aspirin 81 mg daily, atorvastatin 40 mg at bedtime, Plavix 75 mg daily #Hx of HTN Patient's blood pressure on the lower end, but MAP has been above 65. Rapid response due to low blood pressure, received albumin and 500 mL bolus normal saline. -Goal BP MAP 60 or greater -Continue carvedilol 3.125 twice daily and Lasix 40 mg twice daily #DM2 Patient history as stated. A1c 7.8 on 04/07/2024 -Management as per primary team Plan of care discussed with attending Dr. Gar. Oscar Sharp MD PGY-1
[2024-04-11] MEDS: ATORVASTATIN CALCIUM 20 MG TABLET 40 MG PO (21:28)
[2024-04-11] MEDS: MIDODRINE 5 MG TABLET PO (21:28)
[2024-04-12] VITALS (12 sets, daily range): BP systolic 90–112; BP diastolic 49–64; PULSE 68–99; RESP 12–21; TEMP 36.1–37.3; O2SAT 93–99; BMI 11.0
[2024-04-12 06:17] LABS: Basophils % (Auto) 0 % (0-2.5); Eosinophils # (Auto) 0.1 Thou/mm3 (0.0-0.5); Eosinophils % (Auto) 1 % (0-10); Hematocrit 40.1 % (41.0-53.0); Hemoglobin 12.6 g/dL (13.5-16.0); Immature Granulocytes % (Auto) 0 % (0-0); Immature Granulocytes Auto 0.03 Thou/mm3 (0.00-0.00); Lymphocytes # (Auto) 1.6 Thou/mm3 (1.0-4.8); Lymphocytes % (Auto) 14 % (10-50); Mean Corpuscular HGB Conc 31.4 g/dl (31.0-37.0); Mean Corpuscular Hemoglobin 28.9 pg (25.0-35.0); Mean Corpuscular Volume 92 fL (80-100); Monocytes # (Auto) 1.3 Thou/mm3 (0.0-0.8); Monocytes % (Auto) 11 % (0-12); Neutrophils # (Auto) 8.3 Thou/mm3 (1.8-7.7); Neutrophils % (Auto) 73 % (37-80); Nucleated Red Blood Cell % 0 /100 WBC (0); Platelet Count 228 Thou/mm3 (140-440); RDW Standard Deviation 53.7 fL (35.1-43.9); Red Blood Count 4.36 Miln/mm3 (4.50-5.90); White Blood Count 11.4 Thou/mm3 (3.8-10.6)
[2024-04-12 06:56] LABS: Alanine Aminotransferase 21 U/L (10-49); Albumin/Globulin Ratio 1.3 (1.2-2.2); Alkaline Phosphatase 56 U/L (46-116); Anion Gap 6 (7-16); Aspartate Amino Transferase 24 U/L (0-34); BUN/Creatinine Ratio 36 Ratio (12-20); Bilirubin,Total 0.5 mg/dL (0.3-1.2); Blood Urea Nitrogen 64 mg/dL (9-23); Calcium 8.3 mg/dL (8.3-10.6); Calcium (Corrected) 9.1 mg/dL (8.5-10.1); Carbon Dioxide 39.6 mMol/L (20.0-31.0); Chloride 92 mMol/L (98-107); Creatinine (Component) 1.8 mg/dL (0.6-1.3); Estimated Creatinine Clearance 35.1 mL/min (>60); Globulin 2.4 gm/dL (2.3-3.5); Glucose 238 mg/dL (74-106); Osmolality,Calculated 301 (275-295); Potassium 4.5 mMol/L (3.4-5.1); Sodium 138 mMol/L (136-145); Total Protein 5.4 gm/dL (5.7-8.2); eGFR 39 See Note
[2024-04-12] MEDS: INSULIN LISPRO (AdmeLOG) 1 UNIT/0.01 ML UNIT SC ×3 (07:48→17:15)
--- NOTE | 2024-04-12 09:11 | PC.SS ---
Update: Patient to stay 1 more day for blood pressure management.
--- NOTE | 2024-04-12 09:27 | EKG_ITS ---
[facility] Test Date: 2024-04-12 Pat Name: JALEESA BRIDGES [facility] Pedal Assembler: CARL : 1950 Requested By: Kyle Garcia Order Number: [id number] Reading MD: Kyle Garcia Measurements Intervals [place] Rate: 62 P: -28 CA: 227 QRS: -67 QRSD: 164 T: 119 QT: 473 QTc: 483 Interpretive Statements ELECTRONIC ATRIAL PACEMAKER ELECTRONIC VENTRICULAR PACEMAKER ABNORMAL RHYTHM ECG Compared to ECG 02/11/2019 16:07:20 Sinus rhythm no longer present Myocardial infarct finding no longer present T-wave abnormality no longer present Possible ischemia no longer present /store/S0/[id number]
--- NOTE | 2024-04-12 10:05 | ESPR_ITS ---
<Statement entered by Dayna Louie MD - 04/12/24 16:24> I discussed with and supervised my co-resident involved in the care of this patient. I agree with the assessment and plan as documented above. Patient seen and examined at bedside. On 5L NC. Still has 1-2+ swelling b/l LE. Blood pressure still soft but MAP > 65. He is awake, alert, mentating. Will increase midodrine and restart GDMT as tolerated by patient. Dayna Louie MD PGY-3 Documentation for date of: 04/12/24 Subjective Subjective Interval history: Patient was seen at bedside this morning. Patient had no overnight events. As per patient's who was at bedside states the patient has been a lot more tired and all he wants to sleep. Stated that he did not get a good sleep overnight and only went to sleep around 3 AM. He is still AO x 3 and did not have any complaints other than just feeling tired. Patient was started on midodrine 5 mg twice daily by cardiology and he was also restarted on all his goal-directed medical therapy as per cardiology. Will increase midodrine to 10mg BID in order to continue GDMT. Hold entresto in the setting of ANDREA. Will continue to monitor. Exam Vital Signs Temp Pulse Resp BP Pulse Ox O2 Del Method O2 Flow Rate 97.4 F 71 20 103/60 98 Nasal Cannula 4 04/12/24 08:00 04/12/24 09:09 04/12/24 09:09 04/12/24 08:00 04/12/24 09:09 04/12/24 08:00 04/12/24 09:09 FiO2 83 04/12/24 04:00 Narrative Exam General: A/O x3, no acute distress Eyes: PERRL, EOMI. Anicteric, vision grossly intact. Ears: No ear pain, no ear discharge, Hearing grossly intact. Nose: No nasal discharge. Mouth/Throat: Dry mucous membranes, no redness, no lesions. Neck: Neck supple, non-tender, no cervical lymphadenopathy. Lungs: Decreased breath sounds STEPHANIE, No accessory muscle use. Cardio: Normal S1/S2, regular rhythm, systolic ejection murmur, no JVD Abdomen: Soft, non-tender, no palpable masses, peristalsis present, no guarding or rebound. Extremities: Symmetrical, no significant deformities, 2+ edema STEPHANIE LE upto lower lateral thigh, 1+ L UE edema, 2+ R UE edema, but soft , non-tender, peripheral pulses presents. Skin: No rashes, no lesions, warm to touch. Neuro: No focal neurological deficits. motor and sensory intact Psych: Cooperative, appropriate mood and effect Objective Labs 04/13/24 04:08 04/13/24 04:08 Labs: Laboratory Results - last 24 hr 04/12/24 04:38 WBC 11.4 H D RBC 4.36 L Hgb 12.6 L Hct 40.1 L MCV 92 MCH 28.9 MCHC 31.4 RDW Std Deviation 53.7 H Plt Count 228 Neut % (Auto) 73 Lymph % (Auto) 14 [place] % (Auto) 11 Eos % (Auto) 1 Baso % (Auto) 0 Neut # (Auto) 8.3 H Lymph # (Auto) 1.6 [place] # (Auto) 1.3 H Eos # (Auto) 0.1 Baso # (Auto) 0.0 Immature Gran # (Auto) 0.03 H Absolute Nucleated RBC 0.00 Immature Gran % 0 Nucleated RBC % 0 Sodium 138 Potassium 4.5 Chloride 92 L Carbon Dioxide 39.6 H Anion Gap 6 L BUN 64 H Creatinine 1.8 H Estim Creat Clear Calc 35.1 L eGFR 39 L BUN/Creatinine Ratio 36 H Glucose 238 H Calculated Osmolality 301 H Calcium 8.3 Corrected Calcium 9.1 Magnesium 2.0 Total Bilirubin 0.5 AST 24 ALT 21 Alkaline Phosphatase 56 Total Protein 5.4 L Albumin 3.0 L D Globulin 2.4 Albumin/Globulin Ratio 1.3 Quality Measures Quality Measures none Advance care planning discussed with:: patient Assessment & Plan Assessment Current Active Medications: Generic Name Dose Route Start Last Admin Trade Name Freq PRN Reason Stop Dose Admin Acetaminophen 650 mg 04/07/24 14:09 Acetaminophen 325 Mg Tablet PO 05/06/24 23:08 Q6H PRN Fever >100.3 or pain 1-3 Albuterol/Ipratropium 3 ml 04/06/24 23:09 04/09/24 00:06 Albuterol/Ipratropium (Duoneb) Rt Margaret 3 Ml Nebu INH 05/06/24 23:08 3 ml Q2HR PRN Administration SHORTNESS OF BREATH OR WHEEZE Aspirin 81 mg 04/07/24 09:00 04/11/24 08:06 Aspirin Ec 81 Mg Tabec PO 05/07/24 08:59 81 mg QDAY MASSIEL Administration Atorvastatin Calcium 40 mg 04/07/24 21:00 04/11/24 21:28 Atorvastatin Calcium 20 Mg Tablet PO 05/07/24 20:59 40 mg HS MASSIEL Administration Carvedilol 3.125 mg 04/09/24 08:25 04/10/24 18:09 Carvedilol 3.125 Mg Tablet PO 05/09/24 08:24 Not Given BIDWM MASSIEL Clopidogrel Bisulfate 75 mg 04/07/24 09:00 04/11/24 08:06 Clopidogrel Bisulfate 75 Mg Tablet PO 05/07/24 08:59 75 mg QDAY MASSIEL Administration Dextrose 50 ml 04/06/24 23:19 Dextrose 50%-Water Inj 50 Ml Syringe IV 05/06/24 23:18 Q15MIN PRN BG <50 OR BG <70 & pt unresponsive Furosemide 40 mg 04/11/24 09:00 Furosemide Inj 10 Mg/Ml 4ml Vial IVP 05/11/24 08:59 QDAY MASSIEL Glucagon 1 mg 04/07/24 15:00 Glucagon Inj 1 Mg Vial IM Q15MIN PRN BG <70, and no IV access Insulin Human Lispro 0 unit 04/07/24 15:01 04/12/24 07:48 Insulin Lispro (Admelog) 1 Unit/0.01 Ml Unit SC 05/07/24 07:29 2 unit AC MASSIEL Administration Protocol Midodrine 10 mg 04/12/24 21:00 Midodrine 5 Mg Tablet PO 05/12/24 20:59 BID MASSIEL Midodrine 10 mg 04/12/24 10:15 Midodrine 5 Mg Tablet PO 04/12/24 10:16 X1 ONE Ondansetron HCl 4 mg 04/06/24 23:09 Ondansetron Inj 2 Mg/Ml Inj 2 Ml IV 05/06/24 23:08 Q6H PRN NAUSEA OR VOMITING Protocol Pantoprazole Sodium 40 mg 04/07/24 09:00 04/11/24 08:06 Pantoprazole 40 Mg Tablet PO 05/07/24 08:59 40 mg QDAY MASSIEL Administration Sacubitril/Valsartan 1 tab 04/10/24 21:00 04/10/24 21:41 Sacubitril 24 Mg/Valsartan 26 Mg Tablet PO 05/10/24 20:59 1 tab BID MASSIEL Administration Sennosides 1 tab 04/07/24 09:00 04/11/24 08:06 Senna Tablet PO 05/07/24 08:59 1 tab QDAY MASSIEL Administration Protocol Spironolactone 25 mg 04/10/24 21:00 04/11/24 07:53 Spironolactone 25 Mg Tablet PO 05/10/24 20:59 Not Given BID MASSIEL Plan 74-year-old male with past medical history of HFrEF (25%), DM2, hypertension, and CAD s/p CABG was admitted to the hospital on 03/10/2024 due to acute hypoxic respiratory failure likely secondary to acute decompensated heart failure exacerbation. # Acute hypoxic respiratory failure likely secondary to #Acute decompensated heart failure exacerbation (HFrEF 25%) #Anasarca #NSTEMI likely type II #Hypotension ? Patient came in with lower extremity as well as upper extremity swelling as well as shortness of breath. ? Troponins peaked at 0.056 and down trended ? Elevated troponins likely in the setting of CHF exacerbation ? Echo showed EF of 25% as well as moderate to severe aortic stenosis and moderate aortic regurgitation ? Patient had total net balance of -170 mL in last 24 hours ? Anasarca improving, but right upper extremity still more swollen than the left ?Patient had a very proximal called overnight due to low MAP and his blood pressure has been on the lower end 12 the whole day. Plan: ?Will continue Coreg 3.125mg BID, spironolactone 25 mg BID, and lasix 40mg qday -Hold entresto in setting of ANDREA ? Strict CHANEL's ? Daily weights ? Fluid restrictions ? Low-sodium diet ? Cardiology consulted, pursue recommendations #Aortic stenosis #CAD s/p CABG #Hyperlipidemia #Multivessel CAD ?Patient had heart cath on 04/10/2024 I had the following findings: 1. Moderate to severe calcific aortic stenosis, low flow, low-grade and severe aortic stenosis. 2. Severe LV dysfunction ischemic cardiomyopathy. Ejection fraction is 25%. 3. Severe multivessel CAD, chronic occlusion of RCA with collaterals from left coroanry system and severe stenosis of proximal LAD with diffuse distal LAD stenosis, not a good target for bypass surgery. Moderate to severe stenosis of ramus intermedius and circumflex artery. No good target for revascularization. Plan: ?Continue aspirin 81 mg daily, atorvastatin 40 mg at bedtime, Plavix 75 mg daily #ANDREA -Creatinine increased to 1.8 today -Baseline Cr 1.2-1.3 Plan: -Hold entresto -Avoid nephrotoxic agents -Renally dose medications -Will continue to monitor #Superficial vein thrombosis ? Patient yesterday had an 2+ swelling of the right upper extremity, but was soft. ? Ultrasound venous Doppler of right upper extremity shows superficial vein thrombosis Plan: ?Will follow-up with cardiology as she started patient on anticoagulation. #Hx of HTN ? Patient's blood pressure on the lower end, but MAP has been above 65 ? Continue carvedilol 3.125 twice daily and Lasix 40 mg twice daily #DM2 ? A1c 7.8 on 03/2024 Plan: ? ISS ? Accu-Cheks and hypoglycemia protocol ordered ? Will continue to monitor Disposition: Patient seen in med surg, continue midodrine 10mg BID and hold entresto due to Andrea. Diet: carb low GI prophylaxis: protonix DVT prophylaxis: Heparin sc Code: Full code Case disclosed with Attending Dr. Bucio and my senior Dr. Louie PGY3 Kyle Garcia PGY1 Attending Provider Attestation/Addendum I, Marcela Bucio DO, attest that I was physically present for the guerrero portions of the service and evaluated the patient with the resident and I reviewed and discussed the case with the resident and agree with the resident's findings and plans of care as documented above Patient seen and eval this a.m. Patient not continues to have 1+ bilateral lower extremity edema and remains on 2 L nasal cannula. Patient did not receive his morning medications due to low?normal BP. Will increase midodrine to 10 mg p.o. 2 times daily. Due to acute kidney injury, will hold Entresto and continue with Coreg at this time. Will also continue with IV diuresis.
[2024-04-12] MEDS: FUROSEMIDE INJ 10 MG/ML 4ML VIAL 40 MG IVP (10:14)
[2024-04-12] MEDS: PANTOPRAZOLE 40 MG TABLET PO (10:15)
[2024-04-12] MEDS: ASPIRIN EC 81 MG TABEC PO (10:15)
[2024-04-12] MEDS: SENNA TABLET 1 TAB PO (10:15)
[2024-04-12] MEDS: CLOPIDOGREL BISULFATE 75 MG TABLET PO (10:15)
[2024-04-12] MEDS: SPIRONOLACTONE 25 MG TABLET PO (10:16)
[2024-04-12] MEDS: MIDODRINE 5 MG TABLET 10 MG PO ×2 (10:16→19:43)
[2024-04-12] MEDS: carVEDILOL 3.125 MG TABLET PO (10:16)
--- NOTE | 2024-04-12 14:27 | PC.SS ---
Rounding Note: PT evaluation is pending.
--- NOTE | 2024-04-12 17:42 | ESPR_ITS ---
<Statement entered by Judy Gar MD - 04/14/24 09:01> I personally examined the patient with resident physician Dr. Oscar Vineszo appears to be doing a little better able to tolerate medications continue on diuretic therapy has HFrEF with low ejection fraction multivessel CAD not suitable for bypass graft surgery medical management is warranted. Documentation for date of: 04/12/24 Subjective Subjective Interval history: No overnight events. Patient seen and examined at bedside. Patient resting comfortably, denies shortness of breath, chest pain, fatigue, weakness, lightheadedness. No signs of shock. Will give midodrine for low blood pressure and resume GDMT and diuretics. Avoid fluid boluses. Exam Vital Signs Temp Pulse Resp BP Pulse Ox O2 Del Method O2 Flow Rate 97.2 F 72 19 101/49 L 95 Nasal Cannula 2 04/12/24 12:00 04/12/24 12:00 04/12/24 12:00 04/12/24 12:00 04/12/24 12:00 04/12/24 12:00 04/12/24 12:00 FiO2 83 04/12/24 04:00 Narrative Exam PE: Gen: Well-developed and well-nourished. HEENT: NCAT, PERRLA, EOMI, MMM, anicteric conjunctivae. CVS: normal S1 and S2. RRR. Soft systolic murmur in aortic valve region. Heart sounds diminished. JVD. Resp: CTA B/L. No rhonchi, rales, crackles or wheezing. Abd: soft, non-tender, non-distended. MSK: Good ROM in BUE & BLE. No rash. 2+ pitting edema bilateral lower extremities. Neuro: CN II-XII grossly intact. Strength 5/5 in BUE & BLE. Alert and oriented x3. Psych: appropriate mood and affect. Objective Labs 04/12/24 04:38 04/12/24 04:38 Labs: Laboratory Results - last 24 hr 04/12/24 04:38 WBC 11.4 H D RBC 4.36 L Hgb 12.6 L Hct 40.1 L MCV 92 MCH 28.9 MCHC 31.4 RDW Std Deviation 53.7 H Plt Count 228 Neut % (Auto) 73 Lymph % (Auto) 14 [place] % (Auto) 11 Eos % (Auto) 1 Baso % (Auto) 0 Neut # (Auto) 8.3 H Lymph # (Auto) 1.6 [place] # (Auto) 1.3 H Eos # (Auto) 0.1 Baso # (Auto) 0.0 Immature Gran # (Auto) 0.03 H Absolute Nucleated RBC 0.00 Immature Gran % 0 Nucleated RBC % 0 Sodium 138 Potassium 4.5 Chloride 92 L Carbon Dioxide 39.6 H Anion Gap 6 L BUN 64 H Creatinine 1.8 H Estim Creat Clear Calc 35.1 L eGFR 39 L BUN/Creatinine Ratio 36 H Glucose 238 H Calculated Osmolality 301 H Calcium 8.3 Corrected Calcium 9.1 Magnesium 2.0 Total Bilirubin 0.5 AST 24 ALT 21 Alkaline Phosphatase 56 Total Protein 5.4 L Albumin 3.0 L D Globulin 2.4 Albumin/Globulin Ratio 1.3 Quality Measures Quality Measures VTE prophylaxis Advance care planning discussed with:: patient and child Assessment & Plan Assessment Current Active Medications: Generic Name Dose Route Start Last Admin Trade Name Freq PRN Reason Stop Dose Admin Acetaminophen 650 mg 04/07/24 14:09 Acetaminophen 325 Mg Tablet PO 05/06/24 23:08 Q6H PRN Fever >100.3 or pain 1-3 Albuterol/Ipratropium 3 ml 04/06/24 23:09 04/09/24 00:06 Albuterol/Ipratropium (Duoneb) Rt Margaret 3 Ml Nebu INH 05/06/24 23:08 3 ml Q2HR PRN Administration SHORTNESS OF BREATH OR WHEEZE Aspirin 81 mg 04/07/24 09:00 04/12/24 10:15 Aspirin Ec 81 Mg Tabec PO 05/07/24 08:59 81 mg QDAY MASSIEL Administration Atorvastatin Calcium 40 mg 04/07/24 21:00 04/11/24 21:28 Atorvastatin Calcium 20 Mg Tablet PO 05/07/24 20:59 40 mg HS MASSIEL Administration Carvedilol 3.125 mg 04/09/24 08:25 04/12/24 10:16 Carvedilol 3.125 Mg Tablet PO 05/09/24 08:24 3.125 mg BIDWM MASSIEL Administration Clopidogrel Bisulfate 75 mg 04/07/24 09:00 04/12/24 10:15 Clopidogrel Bisulfate 75 Mg Tablet PO 05/07/24 08:59 75 mg QDAY MASSIEL Administration Dextrose 50 ml 04/06/24 23:19 Dextrose 50%-Water Inj 50 Ml Syringe IV 05/06/24 23:18 Q15MIN PRN BG <50 OR BG <70 & pt unresponsive Furosemide 40 mg 04/11/24 09:00 04/12/24 10:14 Furosemide Inj 10 Mg/Ml 4ml Vial IVP 05/11/24 08:59 40 mg QDAY MASSIEL Administration Glucagon 1 mg 04/07/24 15:00 Glucagon Inj 1 Mg Vial IM Q15MIN PRN BG <70, and no IV access Insulin Human Lispro 0 unit 04/07/24 15:01 04/12/24 17:15 Insulin Lispro (Admelog) 1 Unit/0.01 Ml Unit SC 05/07/24 07:29 2 unit AC MASSIEL Administration Protocol Midodrine 10 mg 04/12/24 21:00 Midodrine 5 Mg Tablet PO 05/12/24 20:59 BID MASSIEL Ondansetron HCl 4 mg 04/06/24 23:09 Ondansetron Inj 2 Mg/Ml Inj 2 Ml IV 05/06/24 23:08 Q6H PRN NAUSEA OR VOMITING Protocol Pantoprazole Sodium 40 mg 04/07/24 09:00 04/12/24 10:15 Pantoprazole 40 Mg Tablet PO 05/07/24 08:59 40 mg QDAY MASSIEL Administration Sacubitril/Valsartan 1 tab 04/10/24 21:00 04/12/24 10:17 Sacubitril 24 Mg/Valsartan 26 Mg Tablet PO 05/10/24 20:59 Not Given BID MASSIEL Sennosides 1 tab 04/07/24 09:00 04/12/24 10:15 Senna Tablet PO 05/07/24 08:59 1 tab QDAY MASSIEL Administration Protocol Spironolactone 25 mg 04/13/24 09:00 Spironolactone 25 Mg Tablet PO 05/13/24 08:59 QDAY MASSIEL Plan 74-year-old male with past medical history of HFrEF (25%), DM2, hypertension, and CAD s/p CABG was admitted to the hospital on 03/10/2024 due to acute hypoxic respiratory failure likely secondary to acute decompensated heart failure exacerbation. #Acute hypoxic respiratory failure secondary to #Acute decompensated heart failure exacerbation (HFrEF 25%) #Anasarca #NSTEMI type II Patient came in with lower extremity as well as upper extremity swelling as well as shortness of breath. Troponins peaked at 0.056 and down trended, likely due to CHF exacerbation. Echo showed EF of 25% as well as moderate to severe aortic stenosis and moderate aortic regurgitation. Patient received heart cath which showed 25% ejection fraction, severe aortic stenosis, severe multivessel coronary artery disease without good revascularization target. Significant grade 2 pulmonary arterial hypertension with a increased right ventricular pressure and pulmonary wedge pressure. Patient was hypotensive, asymptomatic, received 0.5 L bolus NS and albumin. Poor candidate for surgery or revascularizaton, continue with aggressive medical management and GDMT. -Lasix 40 mg IV twice daily -Carvedilol 3.125 mg PO twice daily -Entresto held due to ANDREA, resume when able -Strict CHANEL's -Daily weights -Fluid restrictions 1500 cc -Low-sodium diet -Goal MAP 60 or greater, avoid IVF -Midodrine 5mg PO BID #ANDREA Contrast-induced nephropathy versus fluid overload. Patient clinically fluid overloaded, significant edema and JVD. Patient developed ANDREA shortly after cardiac catheterization, minimal contrast applied possible contrast-induced nephropathy. Will continue diuresis, closely monitor. -Avoid nephrotoxins -Monitor daily labs -Diuresis and GDMT as above -Hold Entresto temporarily due to ANDREA, will resume when able #Contraction alkalosis Patient developed contraction alkalosis in setting of IV diuretics. Serum bicarb increased to 39.2. -Spironolactone 25 mg p.o. twice daily #Aortic stenosis #CAD s/p CABG #Hyperlipidemia -Continue aspirin 81 mg daily, atorvastatin 40 mg at bedtime, Plavix 75 mg daily #Hx of HTN Patient's blood pressure on the lower end, but MAP has been above 65. Rapid response due to low blood pressure, received albumin and 500 mL bolus normal saline. -Goal BP MAP 60 or greater -Continue carvedilol 3.125 twice daily and Lasix 40 mg twice daily #DM2 Patient history as stated. A1c 7.8 on 04/07/2024 -Management as per primary team Plan of care discussed with attending Dr. Gar. Oscar Sharp MD PGY-1
[2024-04-12] MEDS: ATORVASTATIN CALCIUM 20 MG TABLET 40 MG PO (21:29)
[2024-04-13] VITALS (11 sets, daily range): BP systolic 98–122; BP diastolic 53–71; PULSE 60–87; RESP 18–28; TEMP 36.2–36.9; O2SAT 96–100
[2024-04-13] MEDS: ALBUTEROL/IPRATROPIUM (Duoneb) RT SOL 3 ML NEBU INH (03:19)
[2024-04-13 06:02] LABS: Basophils # (Auto) 0.1 Thou/mm3 (0.0-0.2); Basophils % (Auto) 1 % (0-2.5); Eosinophils # (Auto) 0.4 Thou/mm3 (0.0-0.5); Eosinophils % (Auto) 4 % (0-10); Hematocrit 41.5 % (41.0-53.0); Hemoglobin 12.8 g/dL (13.5-16.0); Immature Granulocytes % (Auto) 0 % (0-0); Immature Granulocytes Auto 0.02 Thou/mm3 (0.00-0.00); Lymphocytes # (Auto) 1.7 Thou/mm3 (1.0-4.8); Lymphocytes % (Auto) 18 % (10-50); Mean Corpuscular HGB Conc 30.8 g/dl (31.0-37.0); Mean Corpuscular Hemoglobin 28.8 pg (25.0-35.0); Mean Corpuscular Volume 93 fL (80-100); Monocytes # (Auto) 1.2 Thou/mm3 (0.0-0.8); Monocytes % (Auto) 13 % (0-12); Neutrophils # (Auto) 6.2 Thou/mm3 (1.8-7.7); Neutrophils % (Auto) 65 % (37-80); Nucleated Red Blood Cell % 0 /100 WBC (0); Platelet Count 215 Thou/mm3 (140-440); RDW Standard Deviation 54.5 fL (35.1-43.9); Red Blood Count 4.45 Miln/mm3 (4.50-5.90); White Blood Count 9.6 Thou/mm3 (3.8-10.6)
[2024-04-13 06:27] LABS: Alanine Aminotransferase 24 U/L (10-49); Albumin, Serum 2.8 gm/dL (3.4-4.8); Albumin/Globulin Ratio 1.2 (1.2-2.2); Alkaline Phosphatase 56 U/L (46-116); Anion Gap 5 (7-16); Aspartate Amino Transferase 27 U/L (0-34); BUN/Creatinine Ratio 43 Ratio (12-20); Bilirubin,Total 0.4 mg/dL (0.3-1.2); Blood Urea Nitrogen 69 mg/dL (9-23); Calcium 8.1 mg/dL (8.3-10.6); Calcium (Corrected) 9.1 mg/dL (8.5-10.1); Carbon Dioxide 38.9 mMol/L (20.0-31.0); Chloride 92 mMol/L (98-107); Creatinine (Component) 1.6 mg/dL (0.6-1.3); Estimated Creatinine Clearance 39.4 mL/min (>60); Globulin 2.4 gm/dL (2.3-3.5); Glucose 287 mg/dL (74-106); Magnesium 2.1 mg/dL (1.6-2.6); Osmolality,Calculated 302 (275-295); Potassium 4.5 mMol/L (3.4-5.1); Sodium 136 mMol/L (136-145); Total Protein 5.2 gm/dL (5.7-8.2); eGFR 44 See Note
[2024-04-13] MEDS: CLOPIDOGREL BISULFATE 75 MG TABLET PO (08:01)
[2024-04-13] MEDS: ASPIRIN EC 81 MG TABEC PO (08:01)
[2024-04-13] MEDS: SENNA TABLET 1 TAB PO (08:02)
[2024-04-13] MEDS: SPIRONOLACTONE 25 MG TABLET PO (08:02)
[2024-04-13] MEDS: PANTOPRAZOLE 40 MG TABLET PO (08:02)
[2024-04-13] MEDS: carVEDILOL 3.125 MG TABLET PO ×2 (08:06→17:47)
[2024-04-13] MEDS: MIDODRINE 5 MG TABLET 10 MG PO (08:06)
[2024-04-13] MEDS: INSULIN LISPRO (AdmeLOG) 1 UNIT/0.01 ML UNIT SC ×3 (08:06→17:49)
[2024-04-13] MEDS: FUROSEMIDE INJ 10 MG/ML 4ML VIAL 40 MG IVP (08:08)
--- NOTE | 2024-04-13 12:56 | PC.NURSE ---
Pt on 3L NC and satting 97%. Removed oxygen and pt desatted to 84% on RA while at rest. Placed pt back on 3L NC and pt recovered to 96%.
--- NOTE | 2024-04-13 13:27 | PC.SS ---
OXYGEN Pt is discharged in a chronic stable state and has been treated optimally and has other respiratory needs. Oxygen has been ordered due to congestive heart failure.??
--- NOTE | 2024-04-13 13:42 | ESDS_ITS ---
<Statement entered by Marcela Bucio DO - 04/13/24 14:47> I, Marcela Bucio DO, attest that I was physically present for the guerrero portions of the service and evaluated the patient with the resident and I reviewed and discussed the case with the resident and agree with the resident's findings and plans of care as documented above Planned Discharge Date 04/13/24 DS: Providers Provider Date of admission: 04/06/24 23:09 Primary care physician: Jordan Lopez PA-C Admitting Provider: Santana Payne MD Attending Provider on Admission: Marcela Bucio DO Consults: 04/08/24 09:45 Consult to Cardiology Routine Comment: hfref, anasarca, aortic stenosis Consulting Provider: Judy Gar 04/12/24 07:47 Referral Physical Therapy Routine Comment: Physician Instructions: Attending Provider on DC: Marcela Bucio DO Discharging Provider: Marcela Bucio DO DS: Diagnosis Problem List Completed Was Problem List Reviewed/Reconciled?: Yes Hospital Course Hospital Course Hospital course: 74-year-old male with past medical history of HFrEF (25% 2024), DM2, hypertension, and CAD s/p CABG was admitted to the hospital on 03/10/2024 due to acute hypoxic respiratory failure likely secondary to acute decompensated heart failure exacerbation. In the ED patient came in with complaints of lower and upper extremity swelling for a couple weeks prior to admission. Initially patient was normotensive, hypoxic, and afebrile. Initial labs were relevant for low hemoglobin (13.3), hypomagnesemia (1.4), elevated troponins (peaked at 0.056 and downtrending), elevated BNP (1702), and UA was positive for bacteria. Initial imaging included chest x-ray which showed mild heart failure with some potassium pneumonia and bilateral pleural effusions, echo showed an EF of 25% with moderate to severe calcific aortic stenosis and moderate aortic regurgitation. Cardiology was consulted given that patient was in heart failure exacerbation and he was treated with IV diuresis. Cardiology stated that patient will need a heart cath which was done on 04/10/2024 and showed multivessel CAD with EF of 25%. Given the findings on the heart cath cardiology stated that patient had very poor prognosis and that should be on goal-directed medical therapy for his heart failure. When he was placed on the goal-directed medical therapy and his blood pressure decreased and he had a rapid response called throughout the night after he got the heart cath. At this time cardiology was reached out and stated that they were okay with a MAP above 50s. The next day patient was started on midodrine so his blood pressure could tolerate goal- directed medical therapy. Patient developed an ANDREA after he had proper diuresis therefore his Entresto was held, but his ANDREA on the day of discharge was improving. Patient was seen by physical therapy who recommended patient to go to a [facility] facility, but patient and his family stated that they did not want to go to a [facility] facility and would prefer to have patient at home with home health even after discussing the benefits of [facility] facility. Cardiology stated that they wanted patient to be on goal-directed medical therapy upon discharge therefore these were continued. At the time of discharge patient was stable enough to be discharged home with home health. Discharge plan: Please follow-up with primary care physician in 1 week after discharge Please follow-up with cut off saw operator metal Dr. Gar in 1 to 2 weeks after discharge You have been started on Bumex 2 mg daily You have been started on midodrine 10 mg twice daily You have been started on spironolactone 25-minute 25 mg tablet daily You have been continued on ipratropium albuterol 0.5 mg every 2 hours as needed for shortness of breath or wheezing. You have been started on Entresto 24/26 mg tablet twice daily We have stopped your Lasix 40 mg daily and your losartan 25 mg tablet daily. Please continue all other medications as prescribed you have been started on carvedilol 3.125 mg tablet twice daily Limit your fluid intake to 2 L daily this includes water, coffee, juices, or any other form of liquid. Please weigh self daily and if you see any increased weight of 2+ pounds from 1 day to another call your cut off saw operator metal. Please come back to the ER if symptoms persist or worsen Problem list: #Acute hypoxic respiratory failure likely secondary to #Acute decompensated heart failure exacerbation (HFrEF 25%) #Anasarca #NSTEMI likely type II #Hypotension #Aortic stenosis #CAD s/p CABG #Hyperlipidemia #Multivessel CAD #ANDREA #Superficial vein thrombosis #Hx of HTN #DM2 Case disclosed with Attending Dr. Bucio and my senior Dr. Louie PGY3 Kyle Garcia PGY1 Status at Discharge Overall status at discharge: patient is progressing back to baseline Time Spent with Patient Time attestation: Total time spent providing and/or coordinating discharge services:>35 min Home Health Home Health Referral Orders: 04/13/24 09:52 Home Health Referral Routine Reason For Exam: CHF Home-Bound The patient must either because of illness or injury, need the aid of supportive devices such as crutches, canes, wheelchairs, and walkers; the use of special transportation; or the assistance of another person in order to leave their place of residence; OR have a condition such that leaving his or her home is medically contraindicated. In addition, the patient also meets the following criteria: patient is normally unable to leave the home and leaving home requires considerable taxing effort. Addendum to Home Health Certification Practitioner's Certification: I certify that the patient has been under my care in the hospital and the care of attending physician (see below). We had a [id number] encounter on (see date below). My clinical findings indicate that the patient is home bound per the above criteria and the Home Health Services noted in these orders are medically necessary. The primary reason for the [id number] encounter is related to the fact that the patient requires home health services. Date Certifying [id number]-Dnoh Physician Encounter: 04/06/24 Physician's Name who will Assume Oversight for Services: Jordan Lopez Physician's Phone No.who will Assume Oversight for Service: DOORPERSON - Community Resources: No PT to Evaluate: Yes PT to evaluate and provide a treatmnet plan to increase patient's mobility and strength. Wound Care: No IV Therapy: No RN Safety Evaluation: Yes RN to evaluate and create a plan of care that will produce positive outcomes. Palliative Treatment: No Palliative treatment and evaluate the need for hospice. Home Health Aide - Personal Care: Yes Home Health Aide to assist with any ADL's. Exam Vital Signs Temp Pulse Resp BP Pulse Ox O2 Del Method O2 Flow Rate 98.3 F 73 21 H 120/71 99 Nasal Cannula 2.5 04/13/24 08:00 04/13/24 08:08 04/13/24 08:00 04/13/24 08:08 04/13/24 08:00 04/13/24 08:00 04/13/24 08:00 FiO2 83 04/12/24 04:00 Narrative Exam General: A/O x3, no acute distress Eyes: PERRL, EOMI. Anicteric, vision grossly intact. Ears: No ear pain, no ear discharge, Hearing grossly intact. Nose: No nasal discharge. Mouth/Throat: Dry mucous membranes, no redness, no lesions. Neck: Neck supple, non-tender, no cervical lymphadenopathy. Lungs: mild wheezing and Decreased breath sounds STEPHANIE, No accessory muscle use. Cardio: Normal S1/S2, regular rhythm, systolic ejection murmur, no JVD Abdomen: Soft, non-tender, no palpable masses, peristalsis present, no guarding or rebound. Extremities: Symmetrical, no significant deformities, 2+ edema STEPHANIE LE upto lower lateral thigh, but improving, 1+ L UE edema, 2+ R UE edema, but soft , non- tender, peripheral pulses presents. Skin: No rashes, no lesions, warm to touch. Neuro: No focal neurological deficits. motor and sensory intact Psych: Cooperative, appropriate mood and effect Discharge Plan Plan Patient Disposition: Home w/HOME HEALTH Care Plan Goals: Please follow-up with primary care physician in 1 week after discharge Please follow-up with cut off saw operator metal Dr. Gar in 1 to 2 weeks after discharge You have been started on Bumex 2 mg daily You have been started on midodrine 10 mg twice daily You have been started on spironolactone 25-minute 25 mg tablet daily You have been continued on ipratropium albuterol 0.5 mg every 2 hours as needed for shortness of breath or wheezing. You have been started on Entresto 24/26 mg tablet twice daily We have stopped your Lasix 40 mg daily and your losartan 25 mg tablet daily. Please continue all other medications as prescribed you have been started on carvedilol 3.125 mg tablet twice daily Limit your fluid intake to 2 L daily this includes water, coffee, juices, or any other form of liquid. Please weigh self daily and if you see any increased weight of 2+ pounds from 1 day to another call your cut off saw operator metal. Please come back to the ER if symptoms persist or worsen Prescriptions/Referrals Prescriptions/Med Rec: New ipratropium-albuterol 0.5 mg-3 mg(2.5 mg base)/3 mL Solution For Nebulization 3 ml INH Q2HR PRN (Reason: Shortness Of Breath Or Wheeze) Qty: 90 0RF sacubitril-valsartan [Entresto] 24-26 mg Tablet 1 tab PO BID 30 Days Qty: 60 0RF bumetanide 2 mg tablet 2 mg PO QDAY Qty: 30 0RF midodrine 10 mg tablet 10 mg PO BID 30 Days Qty: 60 0RF Rx Instructions: do not give last dose of day after 6PM or within 4 hrs of bedtime Continued spironolactone 25 mg tablet 25 mg PO QDAY aspirin 81 mg tablet,delayed release (DR/EC) 81 mg PO QDAY carvedilol 3.125 mg tablet 3.125 mg PO BID Rx Instructions: must administer with a meal/food clopidogrel 75 mg tablet 75 mg PO QDAY atorvastatin 40 mg tablet 40 mg PO QDAY metformin 850 mg tablet 850 mg PO BIDWMEAL Jardiance 10 mg tablet 10 mg PO QAM Discontinued metformin 1,000 mg Tablet 1,000 mg PO BID furosemide 40 mg tablet 40 mg PO QDAY losartan 25 mg tablet 25 mg PO QDAY Referrals: Jordan Lopez PA-C [Primary Care Provider] - Judy Gar MD [Physician] - Patient/Caregiver Discharge Instructions Other Discharge Activity Instructions:: Please follow-up with primary care physician in 1 week after discharge Please follow-up with cut off saw operator metal Dr. Gar in 1 to 2 weeks after discharge You have been started on Bumex 2 mg daily You have been started on midodrine 10 mg twice daily You have been started on spironolactone 25-minute 25 mg tablet daily You have been continued on ipratropium albuterol 0.5 mg every 2 hours as needed for shortness of breath or wheezing. You have been started on Entresto 24/26 mg tablet twice daily We have stopped your Lasix 40 mg daily and your losartan 25 mg tablet daily. Please continue all other medications as prescribed you have been started on carvedilol 3.125 mg tablet twice daily Limit your fluid intake to 2 L daily this includes water, coffee, juices, or any other form of liquid. Please weigh self daily and if you see any increased weight of 2+ pounds from 1 day to another call your cut off saw operator metal. Please come back to the ER if symptoms persist or worsen Education Materials: Heart Failure Meds, Diabetes and Heart Disease, Low-Salt Choices, Heart Failure: Tracking Your Weight, Long-Term Complications of Diabetes, Diabetes: Inspecting Your Feet, Coping with Heart Failure, Diabetes Carbs Fats Protein, Heart Failure Print Language: Tajik Stand Alone Forms: Jody Award Info., Patient Portal Info Letter Discharge Order Discharge Orders: Discharge (Routine); Ordered 04/13/24 Ordered By: Kyle Garcia Quality Discharge Quality Measures VTE prophylaxis
--- NOTE | 2024-04-13 14:23 | PC.SS ---
Wheel Chairs Patients diagnosis creates mobility limitations that significantly impairs ability to participate in the patients activities of daily living either in their entirety, or in a reasonable time frame in the home and the patients mobility limitations can not be sufficiently resolved with an appropriately fitted cane or walker. Also the use of a manual wheelchair will sufficiently improve patient?s ability to participate in the activities of daily living in the home and the patient is willing to use the wheelchair that is provided in the home. The patient has some one in the home that is available, willing and able to provide assistance with the wheelchair.
--- NOTE | 2024-04-13 14:33 | ESPR_ITS ---
<Statement entered by Judy Gar MD - 04/14/24 09:03> I personally examined the patient appears to be quite stable today not having chest pain shortness breath recommend continue present medical management evaluated the patient with resident physician agree with the treatment plan recommendation as documented likely discharge the patient home on Entresto and also Bumex discontinue losartan continue low-dose carvedilol add spironolactone as tolerated. Patient has mild contrast nephropathy as well which should eventually improve Documentation for date of: 04/13/24 Subjective Subjective Interval history: No overnight events. Patient seen and examined at bedside. Patient resting comfortably, denies shortness of breath, chest pain, fatigue, weakness, lightheadedness. Patient blood pressure stable with GDMT, diuretics, midodrine. Patient cleared for discharge from cardiology perspective. Exam Vital Signs Temp Pulse Resp BP Pulse Ox O2 Del Method O2 Flow Rate 98.3 F 73 21 H 120/71 99 Nasal Cannula 2.5 04/13/24 08:00 04/13/24 08:08 04/13/24 08:00 04/13/24 08:08 04/13/24 08:00 04/13/24 08:00 04/13/24 08:00 FiO2 83 04/12/24 04:00 Narrative Exam PE: Gen: Well-developed and well-nourished. HEENT: NCAT, PERRLA, EOMI, MMM, anicteric conjunctivae. CVS: normal S1 and S2. RRR. Soft systolic murmur in aortic valve region. Heart sounds diminished. JVD. Resp: CTA B/L. No rhonchi, rales, crackles or wheezing. Abd: soft, non-tender, non-distended. MSK: Good ROM in BUE & BLE. No rash. 2+ pitting edema bilateral lower extremities. Neuro: CN II-XII grossly intact. Strength 5/5 in BUE & BLE. Alert and oriented x3. Psych: appropriate mood and affect. Objective Labs 04/13/24 04:08 04/13/24 04:08 Labs: Laboratory Results - last 24 hr 04/13/24 04:08 WBC 9.6 RBC 4.45 L Hgb 12.8 L Hct 41.5 MCV 93 MCH 28.8 MCHC 30.8 L RDW Std Deviation 54.5 H Plt Count 215 Neut % (Auto) 65 Lymph % (Auto) 18 [place] % (Auto) 13 H Eos % (Auto) 4 Baso % (Auto) 1 Neut # (Auto) 6.2 Lymph # (Auto) 1.7 [place] # (Auto) 1.2 H Eos # (Auto) 0.4 Baso # (Auto) 0.1 Immature Gran # (Auto) 0.02 H Absolute Nucleated RBC 0.00 Immature Gran % 0 Nucleated RBC % 0 Sodium 136 Potassium 4.5 Chloride 92 L Carbon Dioxide 38.9 H Anion Gap 5 L BUN 69 H Creatinine 1.6 H Estim Creat Clear Calc 39.4 L eGFR 44 L BUN/Creatinine Ratio 43 H Glucose 287 H Calculated Osmolality 302 H Calcium 8.1 L Corrected Calcium 9.1 Magnesium 2.1 Total Bilirubin 0.4 AST 27 ALT 24 Alkaline Phosphatase 56 Total Protein 5.2 L Albumin 2.8 L Globulin 2.4 Albumin/Globulin Ratio 1.2 Quality Measures Quality Measures VTE prophylaxis Advance care planning discussed with:: patient and child Assessment & Plan Assessment Current Active Medications: Generic Name Dose Route Start Last Admin Trade Name Freq PRN Reason Stop Dose Admin Acetaminophen 650 mg 04/07/24 14:09 Acetaminophen 325 Mg Tablet PO 05/06/24 23:08 Q6H PRN Fever >100.3 or pain 1-3 Albuterol/Ipratropium 3 ml 04/06/24 23:09 04/13/24 03:19 Albuterol/Ipratropium (Duoneb) Rt Margaret 3 Ml Nebu INH 05/06/24 23:08 3 ml Q2HR PRN Administration SHORTNESS OF BREATH OR WHEEZE Aspirin 81 mg 04/07/24 09:00 04/13/24 08:01 Aspirin Ec 81 Mg Tabec PO 05/07/24 08:59 81 mg QDAY MASSIEL Administration Atorvastatin Calcium 40 mg 04/07/24 21:00 04/12/24 21:29 Atorvastatin Calcium 20 Mg Tablet PO 05/07/24 20:59 40 mg HS MASSIEL Administration Carvedilol 3.125 mg 04/09/24 08:25 04/13/24 08:06 Carvedilol 3.125 Mg Tablet PO 05/09/24 08:24 3.125 mg BIDWM MASSIEL Administration Clopidogrel Bisulfate 75 mg 04/07/24 09:00 04/13/24 08:01 Clopidogrel Bisulfate 75 Mg Tablet PO 05/07/24 08:59 75 mg QDAY MASSIEL Administration Dextrose 50 ml 04/06/24 23:19 Dextrose 50%-Water Inj 50 Ml Syringe IV 05/06/24 23:18 Q15MIN PRN BG <50 OR BG <70 & pt unresponsive Furosemide 40 mg 04/11/24 09:00 04/13/24 08:08 Furosemide Inj 10 Mg/Ml 4ml Vial IVP 05/11/24 08:59 40 mg QDAY MASSIEL Administration Glucagon 1 mg 04/07/24 15:00 Glucagon Inj 1 Mg Vial IM Q15MIN PRN BG <70, and no IV access Insulin Human Lispro 0 unit 04/07/24 15:01 04/13/24 12:23 Insulin Lispro (Admelog) 1 Unit/0.01 Ml Unit SC 05/07/24 07:29 3 unit AC MASSIEL Administration Protocol Midodrine 10 mg 04/12/24 21:00 04/13/24 08:06 Midodrine 5 Mg Tablet PO 05/12/24 20:59 10 mg BID MASSIEL Administration Ondansetron HCl 4 mg 04/06/24 23:09 Ondansetron Inj 2 Mg/Ml Inj 2 Ml IV 05/06/24 23:08 Q6H PRN NAUSEA OR VOMITING Protocol Pantoprazole Sodium 40 mg 04/07/24 09:00 04/13/24 08:02 Pantoprazole 40 Mg Tablet PO 05/07/24 08:59 40 mg QDAY MASSIEL Administration Sacubitril/Valsartan 1 tab 04/10/24 21:00 04/12/24 10:17 Sacubitril 24 Mg/Valsartan 26 Mg Tablet PO 05/10/24 20:59 Not Given BID MASSIEL Sennosides 1 tab 04/07/24 09:00 04/13/24 08:02 Senna Tablet PO 05/07/24 08:59 1 tab QDAY MASSIEL Administration Protocol Spironolactone 25 mg 04/13/24 09:00 04/13/24 08:02 Spironolactone 25 Mg Tablet PO 05/13/24 08:59 25 mg QDAY MASSIEL Administration Plan 74-year-old male with past medical history of HFrEF (25%), DM2, hypertension, and CAD s/p CABG was admitted to the hospital on 03/10/2024 due to acute hypoxic respiratory failure likely secondary to acute decompensated heart failure exacerbation. #Acute hypoxic respiratory failure secondary to #Acute decompensated heart failure exacerbation (HFrEF 25%) #Anasarca #NSTEMI type II Patient came in with lower extremity as well as upper extremity swelling as well as shortness of breath. Troponins peaked at 0.056 and down trended, likely due to CHF exacerbation. Echo showed EF of 25% as well as moderate to severe aortic stenosis and moderate aortic regurgitation. Patient received heart cath which showed 25% ejection fraction, severe aortic stenosis, severe multivessel coronary artery disease without good revascularization target. Significant grade 2 pulmonary arterial hypertension with a increased right ventricular pressure and pulmonary wedge pressure. Patient was hypotensive, asymptomatic, received 0.5 L bolus NS and albumin. Poor candidate for surgery or revascularizaton, continue with aggressive medical management and GDMT. -Lasix 40 mg IV twice daily -Carvedilol 3.125 mg PO twice daily -Entresto held due to ANDREA, resume when able -Strict CHANEL's -Daily weights -Fluid restrictions 1500 cc -Low-sodium diet -Goal MAP 60 or greater, avoid IVF -Midodrine 5mg PO BID -Patient cleared for discharge from cardiology perspective #ANDREA, improving Contrast-induced nephropathy versus fluid overload. Patient clinically fluid overloaded, significant edema and JVD. Patient developed ANDREA shortly after cardiac catheterization, minimal contrast applied possible contrast-induced nephropathy. Will continue diuresis, closely monitor. -Avoid nephrotoxins -Monitor daily labs -Diuresis and GDMT as above -Hold Entresto temporarily due to ANDREA, will resume when able #Contraction alkalosis Patient developed contraction alkalosis in setting of IV diuretics. Serum bicarb increased to 39.2. -Spironolactone 25 mg p.o. twice daily #Aortic stenosis #CAD s/p CABG #Hyperlipidemia -Continue aspirin 81 mg daily, atorvastatin 40 mg at bedtime, Plavix 75 mg daily #Hx of HTN Patient's blood pressure on the lower end, but MAP has been above 65. Rapid response due to low blood pressure, received albumin and 500 mL bolus normal saline. -Goal BP MAP 60 or greater -Continue carvedilol 3.125 twice daily and Lasix 40 mg twice daily #DM2 Patient history as stated. A1c 7.8 on 04/07/2024 -Management as per primary team Plan of care discussed with attending Dr. Gar. Oscar Sharp MD PGY-1
--- NOTE | 2024-04-13 15:35 | PC.SS ---
DME referral for oxygen and wheelchair submitted on [facility]. Awaiting responses. No preferred vendor identified.
--- NOTE | 2024-04-14 12:03 | PC.CC ---
Home health referral sent, accepted by [facility], Start of care 04/15/24.
== END 2024-04-13 19:38 | disposition home health service (06) | DRG 280 ==
LOC: SERX 18:51 → SERHOLD 04-07 00:19 → S3SX 04-07 03:29 → S2NX 04-11 05:06
PROVIDERS: Internal Medicine; Internal Medicine Cardiovascular Disease; Physician Assistant; Admitting Provider Internal Medicine; Emergency Provider Emergency Medicine; PCP Physician Assistant; Visit Provider Internal Medicine
PROC: 4A023N8 Measurement of Cardiac Sampling and Pressure, Bilateral, Percutaneous Approach (ICD-10-PCS; principal; 2024-04-10 11:30)
DX: I13.0 Hypertensive heart and chronic kidney disease with heart failure and stage 1 through stage 4 chronic kidney disease, or unspecified chronic kidney disease (principal); I50.23 Acute on chronic systolic (congestive) heart failure; I21.A1 Myocardial infarction type 2; J18.9 Pneumonia, unspecified organism; J96.01 Acute respiratory failure with hypoxia; E87.3 Alkalosis; N17.9 Acute kidney failure, unspecified; I82.611 Acute embolism and thrombosis of superficial veins of right upper extremity; I25.10 Atherosclerotic heart disease of native coronary artery without angina pectoris; N18.31 Chronic kidney disease, stage 3a; I25.5 Ischemic cardiomyopathy; E11.22 Type 2 diabetes mellitus with diabetic chronic kidney disease; I27.22 Pulmonary hypertension due to left heart disease; E78.5 Hyperlipidemia, unspecified; I35.2 Nonrheumatic aortic (valve) stenosis with insufficiency; I25.2 Old myocardial infarction; E83.42 Hypomagnesemia; N14.11 Contrast-induced nephropathy; I95.9 Hypotension, unspecified; T50.8X5A Adverse effect of diagnostic agents, initial encounter; Z95.0 Presence of cardiac pacemaker; Z95.1 Presence of aortocoronary bypass graft; Z79.84 Long term (current) use of oral hypoglycemic drugs; Z79.02 Long term (current) use of antithrombotics/antiplatelets; Z79.82 Long term (current) use of aspirin; Y92.230 Patient room in hospital as the place of occurrence of the external cause; Z79.899 Other long term (current) drug therapy
CPT/HCPCS: 36415; 71045; 80053; 80061; 81001; 82810; 83036; 83605; 83735; 83880; 84100; 84443; 84484; 85025; 85610; 85730; 87502; 87634; 87811; 93005; 93225; 93306; 93971; 94640; 94664; 96374; 97162; 99152; 99153; 99291; A4649; A9270; C1769; C1887; C1894; J0171; J0461; J1643; J1815; J1940; J2250; J2310; J2371; J3010; J3475; J3490; J7050; P9047; Q9967; J2305

== ENCOUNTER → 2024-05-15 | Outpatient (CLI) | payer MEDICARE, MEDICAID, SELFPAY ==
[2024-05-15 12:47] LABS: Basophils % (Auto) 1 % (0-2.5); Eosinophils # (Auto) 0.2 Thou/mm3 (0.0-0.5); Eosinophils % (Auto) 3 % (0-10); Hematocrit 38.2 % (41.0-53.0); Immature Granulocytes % (Auto) 0 % (0-0); Immature Granulocytes Auto 0.02 Thou/mm3 (0.00-0.00); Lymphocytes # (Auto) 1.3 Thou/mm3 (1.0-4.8); Lymphocytes % (Auto) 16 % (10-50); Mean Corpuscular HGB Conc 31.4 g/dl (31.0-37.0); Mean Corpuscular Hemoglobin 28.6 pg (25.0-35.0); Mean Corpuscular Volume 91 fL (80-100); Monocytes % (Auto) 12 % (0-12); Neutrophils # (Auto) 5.6 Thou/mm3 (1.8-7.7); Neutrophils % (Auto) 68 % (37-80); Nucleated Red Blood Cell % 0 /100 WBC (0); Platelet Count 226 Thou/mm3 (140-440); RDW Standard Deviation 56.5 fL (35.1-43.9); Red Blood Count 4.19 Miln/mm3 (4.50-5.90); White Blood Count 8.2 Thou/mm3 (3.8-10.6)
[2024-05-15 13:23] LABS: Alanine Aminotransferase 18 U/L (10-49); Albumin, Serum 2.4 gm/dL (3.4-4.8); Albumin/Globulin Ratio 1.2 (1.2-2.2); Alkaline Phosphatase 55 U/L (46-116); Anion Gap 6 (7-16); Aspartate Amino Transferase 38 U/L (0-34); BUN/Creatinine Ratio 35 Ratio (12-20); Bilirubin,Total 0.5 mg/dL (0.3-1.2); Blood Urea Nitrogen 46 mg/dL (9-23); Calcium 8.2 mg/dL (8.3-10.6); Calcium (Corrected) 9.5 mg/dL (8.5-10.1); Carbon Dioxide > 40.0 mMol/L (20.0-31.0); Chloride 88 mMol/L (98-107); Creatinine (Component) 1.3 mg/dL (0.6-1.3); Glucose 207 mg/dL (74-106); Osmolality,Calculated 286 (275-295); Potassium 5.1 mMol/L (3.4-5.1); Sodium 134 mMol/L (136-145); Total Protein 4.4 gm/dL (5.7-8.2); eGFR 57 See Note
== END | disposition home or self-care (01) ==
LOC: COPL 11:51
PROVIDERS: PCP Physician Assistant; Referring Provider Internal Medicine Cardiovascular Disease; Visit Provider Internal Medicine Cardiovascular Disease
DX: I25.118 Atherosclerotic heart disease of native coronary artery with other forms of angina pectoris (principal)
CPT/HCPCS: 36415; 80053; 85025

== ENCOUNTER → 2024-05-23 | Outpatient (CLI) | payer MEDICARE, MEDICAID, SELFPAY ==
[2024-05-23 19:31] LABS: Albumin, Serum 2.3 gm/dL (3.4-4.8); Anion Gap 11 (7-16); BUN/Creatinine Ratio 31 Ratio (12-20); Blood Urea Nitrogen 44 mg/dL (9-23); Calcium 7.9 mg/dL (8.3-10.6); Calcium (Corrected) 9.3 mg/dL (8.5-10.1); Carbon Dioxide > 40.0 mMol/L (20.0-31.0); Chloride 82 mMol/L (98-107); Creatinine (Component) 1.4 mg/dL (0.6-1.3); Glucose 144 mg/dL (74-106); Osmolality,Calculated 280 (275-295); Phosphorous 3.4 mg/dL (2.4-5.1); Potassium 5.2 mMol/L (3.4-5.1); Sodium 133 mMol/L (136-145); eGFR 52 See Note
== END | disposition home or self-care (01) ==
LOC: COPL 17:02
PROVIDERS: PCP Physician Assistant; Referring Provider Internal Medicine Cardiovascular Disease; Visit Provider Internal Medicine Cardiovascular Disease
DX: I25.118 Atherosclerotic heart disease of native coronary artery with other forms of angina pectoris (principal)
CPT/HCPCS: 36415; 80069

== ENCOUNTER → 2024-06-08 | Outpatient (CLI) | payer MEDICARE, MEDICAID, SELFPAY ==
[2024-06-08 17:30] LABS: Albumin, Serum 2.5 gm/dL (3.4-4.8); Anion Gap 5 (7-16); BUN/Creatinine Ratio 26 Ratio (12-20); Blood Urea Nitrogen 34 mg/dL (9-23); Calcium 7.9 mg/dL (8.3-10.6); Calcium (Corrected) 9.1 mg/dL (8.5-10.1); Carbon Dioxide > 40.0 mMol/L (20.0-31.0); Chloride 91 mMol/L (98-107); Creatinine (Component) 1.3 mg/dL (0.6-1.3); Glucose 122 mg/dL (74-106); Osmolality,Calculated 280 (275-295); Phosphorous 3.8 mg/dL (2.4-5.1); Potassium 4.5 mMol/L (3.4-5.1); Sodium 136 mMol/L (136-145); eGFR 57 See Note
== END | disposition home or self-care (01) ==
LOC: COPL 16:21
PROVIDERS: PCP Physician Assistant; Referring Provider Internal Medicine Cardiovascular Disease; Visit Provider Internal Medicine Cardiovascular Disease
DX: I25.118 Atherosclerotic heart disease of native coronary artery with other forms of angina pectoris (principal)
CPT/HCPCS: 36415; 80069

== ENCOUNTER → 2024-07-20 | Outpatient (CLI) | payer MEDICARE, MEDICAID, SELFPAY ==
[2024-07-20 17:08] LABS: Albumin, Serum 2.8 gm/dL (3.4-4.8); Anion Gap 5 (7-16); BUN/Creatinine Ratio 38 Ratio (12-20); Blood Urea Nitrogen 49 mg/dL (9-23); Calcium 7.8 mg/dL (8.3-10.6); Calcium (Corrected) 8.8 mg/dL (8.5-10.1); Carbon Dioxide > 40.0 mMol/L (20.0-31.0); Chloride 92 mMol/L (98-107); Creatinine (Component) 1.3 mg/dL (0.6-1.3); Glucose 239 mg/dL (74-106); Osmolality,Calculated 294 (275-295); Phosphorous 3.4 mg/dL (2.4-5.1); Potassium 4.4 mMol/L (3.4-5.1); Sodium 137 mMol/L (136-145); eGFR 57 See Note
== END | disposition home or self-care (01) ==
PROVIDERS: PCP Physician Assistant; Referring Provider Internal Medicine Cardiovascular Disease; Visit Provider Internal Medicine Cardiovascular Disease
DX: I25.118 Atherosclerotic heart disease of native coronary artery with other forms of angina pectoris (principal)
CPT/HCPCS: 36415; 80069

== ENCOUNTER → 2024-09-22 | Outpatient (CLI) | payer MEDICARE, MEDICAID, SELFPAY ==
[2024-09-22 17:49] LABS: Albumin, Serum 2.9 gm/dL (3.4-4.8); Anion Gap 7 (7-16); BUN/Creatinine Ratio 44 Ratio (12-20); Blood Urea Nitrogen 84 mg/dL (9-23); Calcium 8.4 mg/dL (8.3-10.6); Calcium (Corrected) 9.3 mg/dL (8.5-10.1); Carbon Dioxide 36.4 mMol/L (20.0-31.0); Chloride 90 mMol/L (98-107); Creatinine (Component) 1.9 mg/dL (0.6-1.3); Glucose 215 mg/dL (74-106); Osmolality,Calculated 297 (275-295); Phosphorous 3.9 mg/dL (2.4-5.1); Potassium 4.6 mMol/L (3.4-5.1); Sodium 133 mMol/L (136-145); eGFR 36 See Note
== END | disposition home or self-care (01) ==
LOC: COPL 16:16
PROVIDERS: PCP Physician Assistant; Referring Provider Internal Medicine Cardiovascular Disease; Visit Provider Internal Medicine Cardiovascular Disease
DX: I25.118 Atherosclerotic heart disease of native coronary artery with other forms of angina pectoris (principal)
CPT/HCPCS: 36415; 80069

== ENCOUNTER → 2024-10-20 | Outpatient (CLI) | payer MEDICARE, MEDICAID, SELFPAY ==
[2024-10-20 12:20] LABS: Albumin, Serum 3.2 gm/dL (3.4-4.8); Anion Gap 7 (7-16); BUN/Creatinine Ratio 31 Ratio (12-20); Blood Urea Nitrogen 47 mg/dL (9-23); Calcium 9.0 mg/dL (8.3-10.6); Calcium (Corrected) 9.6 mg/dL (8.5-10.1); Carbon Dioxide 39.1 mMol/L (20.0-31.0); Chloride 87 mMol/L (98-107); Creatinine (Component) 1.5 mg/dL (0.6-1.3); Osmolality,Calculated 296 (275-295); Phosphorous 3.7 mg/dL (2.4-5.1); Potassium 4.4 mMol/L (3.4-5.1); Sodium 133 mMol/L (136-145); eGFR 48 See Note
[2024-10-20 12:31] LABS: Glucose 416 mg/dL (74-106)
== END | disposition home or self-care (01) ==
LOC: COPL 10:28
PROVIDERS: PCP Physician Assistant; Referring Provider Internal Medicine Cardiovascular Disease; Visit Provider Internal Medicine Cardiovascular Disease
DX: I25.118 Atherosclerotic heart disease of native coronary artery with other forms of angina pectoris (principal)
CPT/HCPCS: 36415; 80053; 80061; 80069; 82043; 82306; 82570; 84100; 84443

== ENCOUNTER → 2024-12-01 | Outpatient (CLI) | payer MEDICARE, MEDICAID, SELFPAY ==
[2024-12-01 14:55] LABS: Albumin, Serum 2.6 gm/dL (3.4-4.8); Anion Gap 9 (7-16); BUN/Creatinine Ratio 34 Ratio (12-20); Blood Urea Nitrogen 55 mg/dL (9-23); Calcium 8.4 mg/dL (8.3-10.6); Calcium (Corrected) 9.5 mg/dL (8.5-10.1); Carbon Dioxide > 40.0 mMol/L (20.0-31.0); Chloride 85 mMol/L (98-107); Creatinine (Component) 1.6 mg/dL (0.6-1.3); Glucose 231 mg/dL (74-106); Osmolality,Calculated 290 (275-295); Phosphorous 3.7 mg/dL (2.4-5.1); Potassium 4.2 mMol/L (3.4-5.1); Sodium 134 mMol/L (136-145); eGFR 44 See Note
== END | disposition home or self-care (01) ==
LOC: COPL 13:25
PROVIDERS: PCP Physician Assistant; Referring Provider Internal Medicine Cardiovascular Disease; Visit Provider Internal Medicine Cardiovascular Disease
DX: I50.22 Chronic systolic (congestive) heart failure (principal)
CPT/HCPCS: 36415; 80069

== ENCOUNTER 2024-12-15 02:09 | Emergency (ER) | payer MEDICARE, MEDICAID, SELFPAY ==
--- NOTE | 2024-12-15 02:20 | PD.EDCPR ---
ED CPR RME/HPI General Chief Complaint: Cardiac Arrest/CPR Stated Complaint: DUTCH PANDA Arrival date/time: 12/15/24 02:09 RME / HPI RME / HPI narrative: Dr. Oviedo?s Main ED Evaluation: 74yo male who was last seen at 1am, found unresponsive by family ~0145am. Family contacted EMS and patient was found to be apneic, pulseless, and unresponsive. Patient underwent CPR and basic ACLS measures. Patient had an indwelling pacemaker, which appeared to be firing, but no prominent pulses noted. Patient received a total of 5 epi [employer] GR[employer] INTERN without response. Related Data Home Medications ?Medication ?Instructions ?Recorded ?Confirmed aspirin 81 mg tablet,delayed 81 mg PO QDAY 04/06/24 04/06/24 release atorvastatin 40 mg tablet 40 mg PO QDAY 04/06/24 04/06/24 carvedilol 3.125 mg tablet 3.125 mg PO BID 04/06/24 04/06/24 clopidogrel 75 mg tablet 75 mg PO QDAY 04/06/24 04/06/24 empagliflozin 10 mg tablet 10 mg PO QAM 04/06/24 04/06/24 (Jardiance) metformin 850 mg tablet 850 mg PO BIDWMEAL 04/06/24 04/06/24 spironolactone 25 mg tablet 25 mg PO QDAY 04/06/24 04/06/24 Previous Rx's ?Medication ?Instructions ?Recorded blood pressure monitor (Blood #1 ea 04/13/24 Pressure Kit) bumetanide 2 mg tablet 2 mg PO QDAY #30 tabs 04/13/24 ipratropium 0.5 mg-albuterol 3 mg 3 ml INH Q2HR PRN Shortness Of 04/13/24 (2.5 mg base)/3 mL nebulization Breath Or Wheeze #90 mL soln Allergies Allergy/AdvReac Type Severity Reaction Status Date / Time No Known Allergies Allergy Verified 04/10/24 13:33 Review of Systems Review of Systems ROS Unobtainable: unobtainable due to medical condition ED Exam Narrative Physical exam: GEN. APPEARANCE: Patient was in cardiac-respiratory arrest with CPR in progress. Actively being bagged. VITALS: Unobtainable. HEENT: Normocephalic, atraumatic. Pupils fixed and dilated. NECK: Supple, no JVD. CHEST: No deformity and no crepitus. No audible heart tones. ABDOMEN: Soft, flat. GENITALIA: Not examined. RECTAL EXAM: Not done. EXTREMITIES: Flaccid. No edema. SKIN: Cool and dry, no rashes noted. NEURO: GCS is 3. Course Quality Measures none Cardiac Arrest / CPR MDM Narrative MDM Narrative:: Scribe Attestation: 12/15/24 Katelynn Villagran am scribing for and in the presence of Dr. Oviedo. 74yo male who was last seen at 1am, found unresponsive by family ~0145am. Family contacted EMS and patient was found to be apneic, pulseless, and unresponsive. Please see PE findings. Lab markers deferred. Patient placed on surveillance system monitor and found to be asystole. Patient without signs of neurological response (i.e. no cough, spontaneous breathing or gag reflex noted). Informal bedside US demonstrated cardiac standstill. No pulses palpable throughout ED course. Code was called at 0215. Patient data External records reviewed:: [facility] previous records (Per chart review, patient was admitted here on 04/06/24 for adult myxedema.) and EMS form Clinical information provided by:: EMS Social determinants that could affect healthcare access:: none Patient has the following chronic illnesses:: HFrEF (25% 2024), DM2, hypertension, and CAD s/p CABG How is presenting disease/condition affected by chronic disease/condition?: exacerbated by Evaluation data The following diagnostics were reviewed and interpreted by me:: other (specify) (none) Lab and/or radiology exams considered but not ordered:: none Interpretation Summary: none Medications / Prescriptions Medications or Prescriptions considered but not ordered:: none Medication administrations:: none Consultations Consultation(s) initiated? (list below): No Diagnosis Cardiac arrest differential diagnosis: acute massive pulmonary embolism, acute respiratory failure, acute myocardial infarction, cardiac arrest and sudden cardiac Most likely diagnosis given after review of the tests above:: cardiac arrest Admission Indicated Admission indicated?: not indicated Admission Request Was there a request for admission?: No Disposition Plan Disposition Plan: other (specify) (Patient .) Discharge Plan Plan Patient Disposition: Problem List Clinical Impression: Cardiac arrest Patient/Caregiver Discharge Instructions Print Language: Hungarian
--- NOTE | 2024-12-15 02:50 | PC.NURSE ---
spoke with Margarito with [facility]. states patient may be candidate, will call back. [facility]# [phone].
== END 2024-12-15 06:38 | disposition expired ==
PROVIDERS: Emergency Provider Emergency Medicine; PCP Physician Assistant
DX: I46.9 Cardiac arrest, cause unspecified (principal); Z95.0 Presence of cardiac pacemaker
CPT/HCPCS: 92950; 99281